=== PATIENT | male | born 1945 | race Two or more races ===

== ENCOUNTER → 2023-07-15 13:36 | Outpatient (REF) | payer MEDICARE, SELFPAY | LOC: MRI 3T 13:36 | PROVIDERS: ATTENDING PHYSICIAN Nurse Practitioner | DX: G43.719 Chronic migraine without aura, intractable, without status migrainosus (principal) | CPT/HCPCS: 70553; A9575 ==

== ENCOUNTER → 2023-08-13 11:25 | Outpatient (REF) | payer MEDICARE, SELFPAY ==
[2023-08-13 13:09] LABS: Erythrocyte Sed Rate 26 mm/hour (0-20)
== END ==
LOC: REG 11:25
PROVIDERS: ATTENDING PHYSICIAN Ophthalmology; FAMILY PHYSICIAN Physical Medicine & Rehabilitation
DX: H57.13 Ocular pain, bilateral (principal)
CPT/HCPCS: 36415; 85652; 86140

== ENCOUNTER → 2023-08-16 06:09 | Day surgery (SDC) | payer MEDICARE, SELFPAY ==
[2023-08-16 06:20] VITALS: BP 121/57; BMI 30.9
[2023-08-16] MEDS: BACTROBAN NASAL 1 GRAM NASAL (06:59)
[2023-08-16] MEDS: PERIDEX 0.12% ORAL RINSE 15 ML PO (06:59)
[2023-08-16] MEDS: NSS 500 IV (07:00)
[2023-08-16 07:02] LABS: Hematocrit 32.2 % (39.0-52.0); Hemoglobin 11.1 g/dL (13.0-18.0); Mean Corp Hgb Conc. 34.5 g/dL (33.0-37.0); Mean Corpuscular Hgb 29.4 pg (27.0-31.0); Mean Corpuscular Volume 85.4 fL (80.0-94.0); Mean Platelet Volume 10.5 fL (7.4-10.4); Platelet Count 293 10^3/uL (130-400); Red Blood Cell Count 3.77 10^6/uL (4.70-6.10); Red Cell Dist. Width 13.2 % (11.5-14.5); White Blood Cell Count 10.3 10^3/uL (4.8-10.8)
[2023-08-16 07:17] LABS: APTT 26.4 Sec (23.4-35.0); INR 1.16; PT 14.9 Sec (11.4-14.6)
--- NOTE | 2023-08-16 07:26 | W.SUR.PREOP ---
Pre-Operative Surgical Note
-
I have examined this patient prior to the performance of the scheduled procedure.
The patient's condition is unchanged from the time of the current History and
Physical and the patient is able to undergo the scheduled procedure.
[2023-08-16 07:42] LABS: Blood Urea Nitrogen 22 mg/dl (9-20); Carbon Dioxide 24 mmol/L (22-30); Chloride 104 mmol/L (98-107); Estimated Creatinine Clearance 57 ml/min; Glucose 92 mg/dl (70-99); Sodium 135 mmol/L (135-145); eGFR 55.88
--- NOTE | 2023-08-16 08:31 | W.SUR.POST ---
Surgical Immediate Post Op
Note
Pre Op Diagnosis: Giant cell arteritis
Post Op Diagnosis: Same
Procedure Performed: Bilateral temporal artery biopsy
Primary Surgeon: Trip
Assist: Portia AMADOR
Anesthesia: Local and sedation
Estimated Blood Loss: 2 cc
Fluids: See anesthesia flowsheet
Drains/Shunts: None
Specimens/Cultures: Bilateral temporal arteries
Doppler/Duplex/Angio (Y/N): Y
Complications: None
Operative Findings: Successful biopsies
--- NOTE | 2023-08-16 08:33 | OR.RPT ---
Operative Report
Operative Report
PROCEDURE DATE: 08/16/2023
Preoperative diagnosis: Temporal arteritis
Postoperative diagnosis: Same
Procedure: Bilateral temporal artery biopsy.
Surgeon: Trip
Highway Traffic Control Technician: Portia, required for all aspects of procedure including traction/countertraction and assistance with closure.
Complications: None
Anesthesia: Local, sedation
Indications for procedure:
Concern for giant cell/temporal arteritis. Referred for temporal artery biopsy. Risk/benefits/alternatives also discussed. Patient understood all wish to proceed.
Description of procedure:
Patient was identified brought to the operating room placed on the table in supine position. After the adequate administration of anesthesia and perioperative antibiotics he was prepped and draped in the standard surgical fashion. A standard
preoperative timeout was undertaken and everybody was in agreement the plan. A longitudinal incision was made in the scalp a few centimeters anterior and superior to the superiormost aspect of the pinna of the right ear just under the hairline
(overlying the palpable pulsation of the artery) after infiltration of the skin and subcutaneous tissue with 1% lidocaine. This was carried down through the subcutaneous layer and the fascia layer with electrocautery. The superficial temporal
artery was identified. It was mobilized using sharp dissection. It was then ligated proximally and distally as well as a branch ligated all with silk ties and a clip. I then transected the artery. This was then sent for specimen.
A similar incision was made in the left scalp but this one was immediately anterior and superior to the superiormost aspect of the pinna of the left ear (overlying the palpable pulsation of the artery) after infiltration of the skin and subcutaneous
tissue with 1% lidocaine. Similarly this was carried down through the subcutaneous tissue and fascial layer with the electrocautery. The superficial temporal artery was identified and was mobilized using sharp dissection. It was then ligated
proximally and distally as well as a branch ligated all with silk ties and a clip. I then transected the artery. This was then sent for specimen.
Note on both sides, the artery was significantly coiled/tortuous with some thickening.
Both incision sites were then irrigated. Hemostasis was achieved and confirmed. We then closed in layers using 3-0 Vicryl deep dermal layer followed by 4-0 Monocryl subcuticular running layer (this was completed bilaterally). Dermabond was then
applied bilaterally. Patient tolerated procedure well.
[2023-08-16 08:34] VITALS: BP 110/62; BP 121/57
[2023-08-16 08:36] VITALS: BP 110/71
[2023-08-16 08:45] VITALS: BP 114/65
[2023-08-16 09:00] VITALS: BP 119/83
[2023-08-16 09:11] VITALS: BP 113/72
--- NOTE | 2023-08-16 09:27 | PTCARENOTE ---
Discharge instructions reviewed with patient at bedside. Patient stated understanding. no S/s of infection at IV site or incision sites, VSS. Patient's IV removal tolerated well. Patient discharged via wheelchair to [facility].
== END | disposition home or self-care (01) ==
LOC: CATH 06:09
PROVIDERS: ATTENDING PHYSICIAN Surgery Vascular Surgery
DX: R51.9 Headache, unspecified (principal); M31.6 Other giant cell arteritis; I44.0 Atrioventricular block, first degree
CPT/HCPCS: 37609; 88305; 80048; 85027; 85610; 85730; 86850; 86900; 86901; 88313; 93005

== ENCOUNTER → 2023-10-02 08:30 | Outpatient (REF) | payer MEDICARE, SELFPAY | LOC: RAD 08:30 | PROVIDERS: ATTENDING PHYSICIAN Internal Medicine | DX: R13.19 Other dysphagia (principal) | CPT/HCPCS: 74246 ==

== ENCOUNTER 2023-10-03 16:00 | Inpatient (IN) | payer MEDICARE, SELFPAY ==
[2023-10-03] VITALS (20 sets, daily range): BP systolic 105–157; BP diastolic 53–133; PULSE 86–102; BMI 33.8; BMI 30.2
[2023-10-03 12:27] LABS: Hematocrit 19.9 % (39.0-52.0); Hemoglobin 6.6 g/dL (13.0-18.0); Mean Corp Hgb Conc. 33.2 g/dL (33.0-37.0); Mean Corpuscular Hgb 26.2 pg (27.0-31.0); Mean Platelet Volume 10.3 fL (7.4-10.4); Platelet Count 334 10^3/uL (130-400); Red Blood Cell Count 2.52 10^6/uL (4.70-6.10); Red Cell Dist. Width 15.7 % (11.5-14.5); White Blood Cell Count 23.6 10^3/uL (4.8-10.8)
[2023-10-03 12:33] LABS: ALT (SGPT) 34 U/L (0-50); AST (SGOT) 61 U/L (17-59); Albumin 3.6 g/dl (3.5-5.0); Alkaline Phosphatase 107 U/L (38-126); Blood Urea Nitrogen 58 mg/dl (9-20); Calcium 9.2 mg/dl (8.4-10.2); Carbon Dioxide 19 mmol/L (22-30); Chloride 102 mmol/L (98-107); Estimated Creatinine Clearance 52 ml/min; Glucose 146 mg/dl (70-99); Potassium 5.3 mmol/L (3.5-5.1); Sodium 137 mmol/L (135-145); Total Bilirubin 0.5 mg/dl (0.2-1.3); Total Protein 5.8 g/dl (6.3-8.2); eGFR 47.06
[2023-10-03 12:47] LABS: % Basophils 0.2 % (0-2); % Immature Granulocytes 1.6 % (0-0.5); % Lymphocytes 4.8 % (20.5-51.1); % Monocytes 4.9 % (1.7-9.3); % Neutrophils 88.5 % (42.2-75.2); Absolute Basophils 0.1 10^3/uL (0-0.2); Absolute Immature Granulocytes 0.4 10^3/uL (0-0.05); Absolute Lymphocytes 1.1 10^3/uL (1.2-3.4); Absolute Monocytes 1.2 10^3/uL (0.1-0.6); Absolute Neutrophils 20.8 10^3/uL (1.4-6.5); Nucleated Red Blood Cells % 0.6 % (-)
--- NOTE | 2023-10-03 13:07 | ED.GENMED ---
History of Present Illness
General
Chief Complaint: Weakness
Time Seen by Provider: 10/03/23 12:08
History of Present Illness
History of Present Illness:
77-year-old male who presents to the emergency department for evaluation of intractable hiccups associated with shortness of breath and general malaise. He had an outpatient upper GI barium swallow yesterday that was concerning for a distal
esophageal mass. He was planned for endoscopy today however when he arrived to the endoscopy suite was noted to be profoundly fatigued and pale and thus was deferred to the emergency department for further workup. Endorses a history of chronic
GERD symptoms for quite some time, his last endoscopy was approximately 3 years ago.
Review of Systems
Review of Systems
Allergies reviewed?: Yes
All Other Systems: ROS reviewed and negative except as documented in HPI and ROS
Phy Exam
Physical Exam
Physical Exam:
GEN: Pale, chronically ill-appearing, no distress
Eyes: PERRLA, EOMs intact, no scleral icterus
HENT: NCAT, oral mucosa moist
Lungs: CTAB, no wheezes, rales, rhonchi, normal chest wall excursion
Cardiac: RRR, no M/R/G, no peripheral edema. Radial pulses 2+ bilat
Abdomen: S, NT, ND, NABS, no masses or hepatosplenomegaly
Neuro: AO x 3
MSK: No gross deformity or ecchymosis. No edema. No digital clubbing
Skin: No rashes, petechiae. Significant pallor
Psych: Calm, cooperative, proper hygiene
Course
Orders/Labs/Results
Orders:
Orders
10/03/23 Breakfast
Clear Liquid
At Your Request: Full Participation
Does patient need a safe tray?: No
Comment: potassium restriction diet
10/03/23 11:57
EKG [Electrocardiogram (*1)] Urgent
Reason for Study: Fatigue / Weakness
EKG- Treatment ONCE
10/03/23 12:04
CBC/With Diff [Complete Blood Count/With Diff] Urgent
CMP [Comprehensive Metabolic Panel] Urgent
10/03/23 12:26
CT Chest/abd/pel W Iv Cont Urgent
Comment: drank contrast for planned outpatient study
Reason For Exam: weight loss, dysphagia
ChlorproMAZINE [Thorazine] 12.5 mg IM NOW STA
10/03/23 12:58
Type+Screen Urgent
10/03/23 13:12
Blood Bank Products [* Blood Bank Products] Urgent
Blood Bank Products: *Packed RBC Leuko(PRBC's)
Quantity: 2
Transfuse Today: Yes
Reason: Anemia
Pantoprazole [Protonix IV] 80 mg IV NOW STA
10/03/23 13:15
Pantoprazole 80 mg/100 ml Nss [Protonix] 80 mg in 100 ml IV Q10H
10/03/23 15:03
Admit/Transfer Patient As Directed
Co-Sign Provider:
Level of Care: Inpatient admission
Assign to:: Medical/Surgical
Physician / Group: sheu
Diagnosis: anemia
Reason for Hospitalization: anemia
Expected length of stay greater than two midnights?: Yes
ELOS- Estimated Length of Stay in days: 3
I certify the patient meets the requirements for IP care: Yes
10/03/23 15:04
PRN Pain Medication Management As Directed
May give lesser potent ordered pain med per pt: Yes
preference::
Protocol:: Medication orders for pain may be administered in a
manner that supports deferring to patient preference
when the pt is:
- Requesting an ordered lesser potent pain medication.
Least to most potent pain medications are defined
as: acetaminophen < NSAID < tramadol < opioids
(morphine, oxycodone, hydromorphone).
- Requesting a lesser dose of the same medication IF
ORDERED.
- Requesting a less intrusive route of administration
if both routes are prescribed by the provider (PO <
IV).
10/03/23 15:05
Code Status As Directed
Resuscitation Status: Do not resuscitate
Reached after discussion with pt or family/Healthcare POA: Yes
DNR Bracelet Application ONCE
10/03/23 15:56
Urinalysis Reflex To Culture Routine
10/03/23 17:25
Chlorpromazine [Thorazine] 25 mg PO Q6HPRN PRN
10/03/23 17:25
GASTROINTESTINAL CONSULT Routine
Consulting Provider: Mynor Corbett
Was physician already notified: Yes
Activity As Directed
Activity Level: As Tolerated
INT (Intravenous Needle Therapy) As Directed
Comment: Place 2 IV catheters of the largest bore possible until stable
Orthostatic Vital Signs As Directed
Orthostatic VS Frequency: Now
Comment: then every four hours for twenty-four hours
Venous Foot Pumps As Directed
Location: Bilateral feet
Vital Signs As Directed
Frequency: Per unit guidelines
DX Deep Vein Thrombosis Video Routine
10/03/23 21:00
H&H Q8H
10/03/23 22:00
Lorazepam [Ativan] 4 mg PO HS
Zolpidem Tartrate [Ambien] 10 mg PO HS
10/04/23 Breakfast
NPO
Allow oral meds: Yes
Allow clear liquids: No
NPO for procedure after (time): 10/04/2023 0000
Basic Metabolic Panel IN AM
Complete Blood Count/No Diff IN AM
Physical Therapy Consult [Pt Eval And Treat] IN AM
Activity Level: As Tolerated
10/05/23 06:00
Basic Metabolic Panel IN AM
Complete Blood Count/No Diff IN AM
10/06/23 06:00
Basic Metabolic Panel IN AM
Complete Blood Count/No Diff IN AM
10/07/23 06:00
Basic Metabolic Panel IN AM
Complete Blood Count/No Diff IN AM
10/08/23 06:00
Basic Metabolic Panel IN AM
Complete Blood Count/No Diff IN AM
Abnormal Lab Results
10/03/23 10/03/23
12:04 12:58
WBC 23.6 H 10^3/uL
(4.8-10.8)
RBC 2.52 L 10^6/uL
(4.70-6.10)
Hgb 6.6 L* g/dL
(13.0-18.0)
Hct 19.9 L* %
(39.0-52.0)
MCV 79.0 L fL
(80.0-94.0)
MCH 26.2 L pg
(27.0-31.0)
RDW 15.7 H %
(11.5-14.5)
Abs Immat Gran (auto) 0.4 H 10^3/uL
(0-0.05)
Absolute Neuts (auto) 20.8 H 10^3/uL
(1.4-6.5)
Absolute Lymphs (auto) 1.1 L 10^3/uL
(1.2-3.4)
Absolute Monos (auto) 1.2 H 10^3/uL
(0.1-0.6)
Immature Gran % 1.6 H %
(0-0.5)
Neutrophils % 88.5 H %
(42.2-75.2)
Lymphocytes % 4.8 L %
(20.5-51.1)
Potassium 5.3 H mmol/L
(3.5-5.1)
Carbon Dioxide 19 L mmol/L
(22-30)
BUN 58 H mg/dl
(9-20)
Creatinine 1.5 H mg/dL
(0.7-1.3)
Glucose 146 H mg/dl
(70-99)
AST 61 H U/L
(17-59)
Total Protein 5.8 L g/dl
(6.3-8.2)
Crossmatch IS Only See Detail
10/03/23 12:04
10/03/23 12:04
Vital Signs
Initial and Last Documented VS:
Initial Vital Signs
Temp Pulse Resp BP Pulse Ox
98.6 F 87 20 115/68 93
10/03/23 11:40 10/03/23 11:40 10/03/23 11:40 10/03/23 11:40 10/03/23 11:40
Last Documented Vital Signs
Temp Pulse Resp BP Pulse Ox
98.1 F 89 16 107/53 95
10/03/23 19:50 10/03/23 19:50 10/03/23 19:50 10/03/23 19:50 10/03/23 19:53
MDM/Problems Addressed
MDM/Problems Addressed:
Unfortunately patient is identified to have a suspicious mass in the distal esophagus which is likely the cause of his symptoms with an associated pleural effusion and multiple hepatic mets. Due to his severe symptomatic anemia he will be admitted
for blood transfusion, inpatient endoscopy, and further diagnostic workup.
*Critical Care Note
Total Time (30-74mins, 75-104mins- exclusive of procedures): 40 minutes
comment:
Critical care time: 40 minutes
Critical care time was exclusive of: Separately billable procedures, treating other patients, and teaching time
Critical care was necessary to treat or prevent imminent or life-threatening deterioration of the following conditions: Symptomatic anemia
Critical care time spent personally by me on the following activities:
[x] Review of old charts
[x] Obtaining history from patient or surrogate
[x] Ordering and review of the laboratory studies
[x] Ordering and review of radiographic studies
[x] Ordering and performing treatments and interventions
[x] Patient patient's response to treatment
[x] Development of treatment plan with patient or surrogate
ED Attending Note
-
Portions of this chart may have been created with voice recognition software.� Occasional wrong word or��sound alike� substitutions may have occurred due to the inherent limitations of voice recognition software.
Discharge Plan
Departure
Patient Disposition: Admit
Date of Disposition: 10/03/23
Time of Disposition: 14:21
Admit to: Med/Surg
Presentation/result/management discussed w/ accepting MD/DO: Hospitalist
Discharge Problem:
Esophageal mass, Symptomatic anemia
Interventions
Interventions:
*Risk Screen - Suicide Last Done: 10/03/23 12:21
*General Assessment Last Done: 10/03/23 11:40
*Neglect/Abuse Screening Last Done: 10/03/23 12:21
ED- Fall Risk Assessment Last Done: 10/03/23 12:21
*ED COVID-19 Vaccine History Last Done: 10/03/23 11:40
*Nursing Disposition Last Done: 10/03/23 17:10
ED- Cardiac Assessment Last Done: 10/03/23 12:21
ED- Neurological Assessment Last Done: 10/03/23 12:21
ED- Pulmonary Assessment Last Done: 10/03/23 12:21
Discharge Date and Time
Discharge Date/Time: 10/03/23 17:11
[2023-10-03] MEDS: THORAZINE 12.5 MG IM (13:26)
[2023-10-03] MEDS: PROTONIX IV 80 MG IV (13:29)
[2023-10-03] MEDS: PROTONIX 100 IV ×2 (13:32→21:38)
--- NOTE | 2023-10-03 14:33 | HPS.HSE ---
Addendum entered and electronically signed by Rosalio Alexandra MD 10/03/23 20:02:
I saw and examined the patient.
The CHEESEMAKER or PA's note was reviewed and I agree with the note.
Comment:
77M migraines, prostate cancer, hypertension, anxiety p/w difficulty swallowing for past few weeks. Outpatient upper GI barium swallow concerning for distal esophageal mass. Planned for endoscopy, however on evaluation in endoscopy suite pt was
noted to be profoundly fatigued and pale- subsequently referred to ED where he was noted to have severe anemia Hgb 6.6. Patient was transfused 1PRBC and admitted for further evaluation/treatment.
Physical Exam
General: Well Developed, Well Nourished and No Apparent Distress
HEENT: NormoCephalic, Moist mucous membranes and Atraumatic
Respiratory: Clear
Cardiac: S1/S2 and Regular Rhythm; No Murmur or Rub
GI: Soft, Non Tender, Non Distended and Normal Bowel Sounds; No Organomegaly
Musculoskeletal: No Clubbing, No Cyanosis and No Edema
Skin: No Rash
Neuro: AO x 3 and Nonfocal/grossly intact
Psych: Calm
#Severe anemia due to suspected distal esophageal mass with hepatic mets
#Leukocytosis suspect reactive
# mild Hyperkalemia/metabolic acidosis/acute kidney injury likely dehydaration
# History of prostate cancer status post cystectomy
# Hypertension
# History of anxiety
follow up post-transfusion Hgb
monitor H&H
trend wbc
IVF gentle hydration
monitor renal function
clear liquid diet for now
npo after midnight for EGD
GI eval
Original Note:
Family Physician
-
Family Physician: PHYSICIAN PRIVATE
Chief Complaint
-
difficulty swallowing
hiccups
History of Present Illness
77-year-old male migraines, prostate cancer, hypertension, anxiety presented to us with difficulty swallowing for past few weeks. He had an outpatient upper GI barium swallow yesterday that was concerning for a distal esophageal mass. He was
planned for endoscopy today however when he arrived to the endoscopy suite was noted to be profoundly fatigued and pale and thus was deferred to the emergency department for further workup. Since the barium swallow, he has hiccups. Denied nausea
vomiting diarrhea. Patient denied headache, dizziness, syncopal episode. Patient denied chest pain or short of breath. Patient denied dysuria hematuria.
Upon arrival he was noted to have low hemoglobin. Giving 2 units of blood. Admitting for further management
Medical History
Past Medical History
Past Medical History: Reports Other
Additional Past Medical History:
Migraine
Past Surgical History: Reports Other
Additional Past Surgical History:
Left wrist surgery
Appendectomy
Lipoma of neck removal
Quadricep tendon repair
Prostatectomy
Social History
Tobacco: Non-smoker
Alcohol: None
Drug: None
Personal: Single
Living: Alone
Family History
Family History: Not pertinent
Allergies / Home Medications
Allergies reflects when Allergies were last updated in [facility].
Home Medications with original date entered in [facility]
Allergy/Medication List:
Allergies
Allergy/AdvReac Type Severity Reaction Status Date / Time
Penicillins Allergy Anaphylaxis Verified 10/03/23 11:48
Home Medications
anastrozole 1 mg tablet 1 mg PO TU 08/16/23
clomiphene citrate 50 mg tablet 25 mg PO DAILY 08/16/23
lorazepam 1 mg tablet 4 mg PO 08/16/23
quetiapine 50 mg tablet 100 mg PO HS 08/16/23
tadalafil 5 mg tablet 5 mg PO DAILY 08/16/23
zolpidem 10 mg tablet 10 mg PO HS 08/16/23
bismuth subsalicylate 262 mg/15 mL oral suspension (Pepto-Bismol) 524 mg PO DAILYPRN PRN GI issues 10/03/23
irbesartan 150 mg tablet 150 mg PO DAILY 10/03/23
naproxen sodium 220 mg tablet (Aleve) 880 mg PO DAILYPRN PRN headache 10/03/23
sumatriptan succinate 100 mg tablet 50 - 100 mg PO DAILYPRN PRN migraine 10/03/23
testosterone 3 pump topical DAILY left arm or stomach 10/03/23
Review of Systems
-
Constitutional: Reports No Symptoms
EENT: Reports No Symptoms
Respiratory: Reports Trouble Breathing
Cardiac: Reports No Symptoms
Abdomen/GI: Reports Other (Hiccups)
: Reports No Symptoms
Musculoskeletal: Reports No Symptoms
Skin: Reports No Symptoms
Neurological: Reports No Symptoms
Endocrine: Reports No Symptoms
Hematologic/Lymphatic: Reports No Symptoms
Psych: Reports No Symptoms
Physical Exam
Vital Signs
Vital Signs
Temp Pulse Resp BP Pulse Ox
98.6 F 85 17 115/68 93
10/03/23 11:40 10/03/23 12:15 10/03/23 12:15 10/03/23 11:40 10/03/23 11:40
Physical Exam
General: Well Developed, Well Nourished and No Apparent Distress
HEENT: NormoCephalic, Moist mucous membranes and Atraumatic
Respiratory: Clear
Cardiac: S1/S2 and Regular Rhythm; No Murmur or Rub
GI: Soft, Non Tender, Non Distended and Normal Bowel Sounds; No Organomegaly
Rectal: Deferred by Provider
Musculoskeletal: No Clubbing, No Cyanosis and No Edema
Skin: No Rash
Neuro: AO x 3 and Nonfocal/grossly intact
Psych: Calm
Laboratory Results
-
10/03/23 12:04
10/03/23 12:04
Laboratory Results
Total Bilirubin 0.5 mg/dl (0.2-1.3) 10/03/23 12:04
AST 61 U/L (17-59) H 10/03/23 12:04
ALT 34 U/L (0-50) 10/03/23 12:04
Alkaline Phosphatase 107 U/L (38-126) 10/03/23 12:04
Data Reviewed
-
CT Scan: Image Personally Visualized and interpreted
Lab Data: Labs Reviewed by me
Impression/Plan
-
# Severe anemia due to suspected distal esophageal mass with hepatic mets
#acute hypoxic likely from anemia
-IV PPI continued
-Hemoglobin 6.6
-CT of chest, abdomen, pelvis with impression of nodular thickening of the distal esophageal wall corresponding to the 7 cm in length nodular area of thickening seen on yesterday's upper GI examination and high level suspicion for esophageal
carcinoma . Endoscopy is recommended.There are greater than 15 low density hepatic masses measuring up to 2 cm consistent with hepatic metastasis. Small-moderate right pleural effusion. Cholelithiasis
-Transfusing with units of blood
-Thorazine continued prn
-Keep patient n.p.o after MN, clear liquid diet until then
-continue supplemental oxygen to keep sat >92
-wean as tolerated
-GI consulted
-Oncology consulted
# Leukocytosis likely reactive
-WBC 23.6
-Obtain urinalysis
-Continue to monitor
# Hypokalemia/metabolic acidosis/acute kidney injury likely dehydaratio
-K5.3, CO2 19, BUN 58, creatinine 1.5
-Monitor BMP in a.m.
-gentle hydration
-BMp in am
# History of prostate cancer status post cystectomy
-On anastrozole
# Hypertension
-Blood pressure stable in ER
-Hold irbesartan due to JULIA
-hydralazine prn
# History of anxiety
-lorazepam continued
-held Seroquel due to concern for prolonged qt with Thorazine.
# History of migraines
-On sumatriptan as needed
# DVT prophylaxis
-SCD
# CODE STATUS
-DNR
--- NOTE | 2023-10-03 16:03 | CON.GI ---
Addendum entered and electronically signed by Mynor Corbett MD 10/03/23 18:13:
I saw and examined the patient.
The FACTORY EXPERT or PA's note was reviewed and I agree with the note.
Comment: 77yo male scheduled to have EGD today for evaluation of dysphagia but sent to ER due to looking poorly, pale. He was having dysphagia over last several months and lost 20 pounds. UGI yesterday showed irregularity of distal esophagus
concerning for a mural mass. He had EGD in 2020 at [facility] that showed esophagitis, bx negative for Barretts. He has had intermittent reflux, but over last few months reflux subsided and now having dysphagia. In ER Hgb 6.6. CT chest shows 7cm
length nodular thickening of distal esophagus and >15 liver masses up to 2cm c/w mets.
REC:
Transfuse PRBC
EGD tomorrow for bx to evaluate for esophageal CA
Consult Oncology if EGD positive
Addendum entered and electronically signed by Geetha King NP 10/03/23 16:44:
Also taking NSAIDs intermittently, but not on a daily basis. Consider peptic ulcer disease/esophageal ulcer in differential.
Original Note:
Consultation
-
Date/Time Consultation Requested: 10/03/23
Date/Time Consultation Performed: 10/03/23 @ 16:30
Requesting Provider: MARJORIE Sharif
Performing Provider: MARJORIE Garsia
Reason for Consultation: esophageal mass, dysphagia
Medical History
Chief Complaint / HPI
Chief Complaint: sent from ED
History of Present Illness:
The patient is a pleasant 77-year-old male with a past medical history significant for migraines, hypertension, anxiety, prior appendectomy, GERD, history of prostatectomy, who presented to the emergency room after being referred from the endoscopy
unit for evaluation. Upon review of outpatient records, the patient had seen Dr. Musa in the office on 09/24 due to complaints of dysphagia of solid foods and large pills. He has been having the symptoms for the last few months associated with
weight loss unintentionally of about 20 pounds. Historically he was seen at [facility] for similar symptoms in 2020 where he had an EGD which showed a large hiatal hernia, Schatzki ring with dilation, and LA grade C esophagitis. I do not have
pathology to review but the patient reports that the biopsies were negative for Gutierrez's. He reportedly had been on and off antiacid medication, taking Zantac remotely and Tums here and there. He underwent an outpatient esophagram which showed
concern for possible distal esophageal mass and was referred to have an endoscopy urgently today. During his evaluation in the endoscopy suite he was found to be pale and reported extreme fatigue, therefore was sent to the emergency room for
further evaluation. He reports that he has been progressively fatigued, thought to be related to his poor eating. He notes that due to his difficulty swallowing he has been eating less and losing weight as mentioned above. He otherwise denies any
nausea, vomiting, fevers, chills, abdominal pain, odynophagia, chest pain, or shortness of breath. He also admits to hiccups that started yesterday. He does admit to drinking 1 glass of wine a few times a week. He denies any heavy alcohol use or
history of smoking. He does also note increased headaches recently and has been taking naproxen as needed. He denies any overt signs of bleeding such as melena or hematochezia. He does not use any blood thinners. He denies any family history of
colon cancer esophageal cancer or stomach cancer. Routine labs on admission showed WBC 23.6, hemoglobin 6.6, MCV 79, platelets 334,000, INR 1.16, potassium 5.3, sodium 137, BUN 58, creatinine 1.5, AST 61, ALT 34, bilirubin 0.5, alk phos 107. He
underwent CT imaging of the chest, abdomen, and pelvis showing nodular thickening of the distal esophagus corresponding to 7 cm in length nodular area concerning for esophageal carcinoma along with 15 low-density hepatic masses measuring up to 2 cm
consistent with hepatic metastasis. He is being admitted for further evaluation by GI. Blood transfusion was initiated in the ER.
Past Medical History
Past Medical History: GERD, HTN and Other (Migraines, anxiety)
Past Surgical History: Appendectomy and Other (Prostatectomy)
Social History
Tobacco: Non-Smoker
Alcohol: Occasional
Drug: None
Personal: Partner
Living: With Family
Family History
Family History: Reviewed & Not Pertinent
Allergies / Home Medications
Allergy/AdvReac Type Severity Reaction Status Date / Time
Penicillins Allergy Anaphylaxis Verified 10/03/23 11:48
�Medication �Instructions �Recorded
anastrozole 1 mg tablet 1 mg PO TU 08/16/23
clomiphene citrate 50 mg tablet 25 mg PO DAILY 08/16/23
lorazepam 1 mg tablet 4 mg PO HS 08/16/23
quetiapine 50 mg tablet 100 mg PO HS 08/16/23
tadalafil 5 mg tablet 5 mg PO DAILY 08/16/23
zolpidem 10 mg tablet 10 mg PO HS 08/16/23
bismuth subsalicylate 262 mg/15 mL 524 mg PO DAILYPRN PRN GI issues 10/03/23
oral suspension (Pepto-Bismol)
irbesartan 150 mg tablet 150 mg PO DAILY 10/03/23
naproxen sodium 220 mg tablet 880 mg PO DAILYPRN PRN headache 10/03/23
(Aleve)
sumatriptan succinate 100 mg tablet 50 - 100 mg PO DAILYPRN PRN 10/03/23
migraine
testosterone 3 pump topical DAILY left arm or 10/03/23
stomach
Review of Systems
-
History Source: Patient and Family
Constitutional: Reports Weight Loss and Fatigue
EENT: Reports No Symptoms
Respiratory: Reports No Symptoms
Cardiac: Reports No Symptoms
Abdomen/GI: Reports Other (Dysphagia, hiccups)
: Reports No Symptoms
Musculoskeletal: Reports No Symptoms
Skin: Reports No Symptoms
Neurological: Reports No Symptoms
Endocrine: Reports No Symptoms
Vital Signs
Temp Pulse Resp BP Pulse Ox
99.2 F 80 18 111/91 94
10/03/23 15:38 10/03/23 15:38 10/03/23 15:38 10/03/23 15:38 10/03/23 15:21
Physical Exam
Exam
General: No Apparent Distress and Other (Elderly, pale appearing male)
HEENT: Normocephalic, Anicteric and Atraumatic
Respiratory: Clear
Cardiac: S1/S2 and Regular Rhythm
GI: Soft, Non Tender and Normal Bowel Sounds
Musculoskeletal: No Edema
Skin: Warm, Dry and Other (Pale appearing)
Neuro: Awake, Alert and Oriented
Psych: Calm
Results
WBC 23.6 10^3/uL (4.8-10.8) H 10/03/23 12:04
Hgb 6.6 g/dL (13.0-18.0) L* 10/03/23 12:04
Hct 19.9 % (39.0-52.0) L* 10/03/23 12:04
MCV 79.0 fL (80.0-94.0) L 10/03/23 12:04
Plt Count 334 10^3/uL (130-400) 10/03/23 12:04
Absolute Neuts (auto) 20.8 10^3/uL (1.4-6.5) H 10/03/23 12:04
Sodium 137 mmol/L (135-145) 10/03/23 12:04
Potassium 5.3 mmol/L (3.5-5.1) H 10/03/23 12:04
Chloride 102 mmol/L (98-107) 10/03/23 12:04
Carbon Dioxide 19 mmol/L (22-30) L 10/03/23 12:04
BUN 58 mg/dl (9-20) H 10/03/23 12:04
Creatinine 1.5 mg/dL (0.7-1.3) H 10/03/23 12:04
Calcium 9.2 mg/dl (8.4-10.2) 10/03/23 12:04
Total Bilirubin 0.5 mg/dl (0.2-1.3) 10/03/23 12:04
AST 61 U/L (17-59) H 10/03/23 12:04
ALT 34 U/L (0-50) 10/03/23 12:04
Alkaline Phosphatase 107 U/L (38-126) 10/03/23 12:04
Diagnostic Image Results:
10/03/23 CT C/A/P:IMPRESSION:
1).There is nodular thickening of the distal esophageal wall corresponding to the 7 cm in length nodular area of thickening seen on yesterday's upper GI examination and high level suspicion for esophageal carcinoma . Endoscopy is recommended.
2).There are greater than 15 low density hepatic masses measuring up to 2 cm consistent with hepatic metastasis
3). Small-moderate right pleural effusion.
4). Cholelithiasis
10/02/23 UGI: IMPRESSION: Irregularity of the distal esophagus as described above concerning for a mural mass. The patient is scheduled for endoscopy tomorrow. Probable small nonsliding hiatal hernia. Intraluminal mass involving the entire distal
third of the esophagus cannot be excluded. See above. Severe gastroesophageal reflux disease. Findings suggesting persistent moderate cricopharyngeal muscle spasm.
Prior GI Procedures:
EGD: 2020 at [facility]: Hiatal hernia, LA grade C esophagitis, Schatzki ring with dilation, per patient pathology was negative for Gutierrez's
Colonoscopy: not on file
Assessment / Plan
-
The patient is a pleasant 77-year-old male with a past medical history significant for migraines, hypertension, anxiety, prior appendectomy, GERD, history of prostatectomy, who presented to the emergency room after being referred from the endoscopy
unit for evaluation. He has reportedly been having dysphagia for the past several weeks to months with weight loss of 20 pounds. Outpatient evaluation concerning for esophageal mass seen on esophagram. He was post undergo endoscopy today but was
found to be pale and appearing unwell therefore sent to the emergency room found to have a hemoglobin of 6.6. He was started with a blood transfusion and placed on oxygen. CT of the chest, abdomen, and pelvis showing signs of metastatic disease of
the esophagus and liver.
Problem list:
-Dysphagia
-Hiccups
-CT findings showing esophageal mass with liver metastasis, concerning for esophageal malignancy
-Severe microcytic anemia
-Fatigue
-Weight loss
-History of LA grade C esophagitis
-Chronic intermittent GERD
-JULIA
Other prior medical history:
-Intermittent migraines
-Hypertension
-Anxiety
Recommendations:
-Etiology of his symptoms likely secondary severe anemia with to underlying metastatic disease seen on CT scan, suspect primary source to be esophageal with metastasis to the liver based on imaging.
-At this time agree with transfusion to maintain hemoglobin greater than 7
-Will proceed with EGD tomorrow for evaluation of the esophageal findings and biopsy. May require dilation if any stricture or narrowing is seen. He has had dilation of a Schatzki's ring in 2020 at [facility]
-PPI daily
-Eventual oncology evaluation
-Okay for liquid diet, n.p.o. after midnight
-Further management pending above
-
-
Thank you for consultation and allowing me to participate in the patient's care. Please call the process control specialist GI physician during the after hours with any questions or concerns.
[2023-10-03] MEDS: NSS 1000 IV (18:15)
[2023-10-04] VITALS (14 sets, daily range): BP systolic 20–147; BP diastolic 27–84; PULSE 77–90; BMI 30.2
[2023-10-04] MEDS: ATIVAN 4 MG PO ×2 (00:12→23:27)
[2023-10-04] MEDS: AMBIEN 10 MG PO ×2 (00:12→23:27)
[2023-10-04 02:23] LABS: Hematocrit 22.8 % (39.0-52.0); Hemoglobin 7.9 g/dL (13.0-18.0)
--- NOTE | 2023-10-04 07:39 | W.PN.HOSP.TC ---
Today's Communication/Plan
-
blood transfusion goal hgb>7.5
soft bite sized diet
baclofen renally dosed
Assessment / Plan
Assessment / Plan
Physical Exam
General: Well Developed, Well Nourished and No Apparent Distress
HEENT: NormoCephalic, Moist mucous membranes and Atraumatic
Respiratory: Clear
Cardiac: S1/S2 and Regular Rhythm; No Murmur or Rub
GI: Soft, Non Tender, Non Distended and Normal Bowel Sounds; No Organomegaly
Musculoskeletal: No Clubbing, No Cyanosis and No Edema
Skin: No Rash
Neuro: AO x 3 and Nonfocal/grossly intact
Psych: Calm
77M migraines, prostate cancer, hypertension, anxiety p/w difficulty swallowing for past few weeks. Outpatient upper GI barium swallow concerning for distal esophageal mass. Planned for endoscopy, however on evaluation in endoscopy suite pt was
noted to be profoundly fatigued and pale- subsequently referred to ED where he was noted to have severe anemia Hgb 6.6. Patient was transfused 1PRBC and admitted for further evaluation/treatment.
# Severe anemia due to suspected distal esophageal mass with hepatic mets
#acute hypoxic likely from anemia
-IV PPI continued
-Hemoglobin 6.6
-CT of chest, abdomen, pelvis with impression of nodular thickening of the distal esophageal wall corresponding to the 7 cm in length nodular area of thickening seen on yesterday's upper GI examination and high level suspicion for esophageal
carcinoma . Endoscopy is recommended.There are greater than 15 low density hepatic masses measuring up to 2 cm consistent with hepatic metastasis. Small-moderate right pleural effusion. Cholelithiasis
-Transfusing with units of blood
-Thorazine continued prn
-continue supplemental oxygen to keep sat >92
-wean as tolerated
-GI consult appreciated EGD bx today
-Oncology consult appreciated
-speech eval appreciated soft bite sized diet
#hiccups
baclofen started renally dosed
# Leukocytosis likely reactive
-urinalysis not suggestive UTI
-ID eval appreciated abx not indicated at this time
# Hypokalemia/metabolic acidosis/acute kidney injury likely dehydaratio
-K5.3, CO2 19, BUN 58, creatinine 1.5
-Monitor BMP in a.m.
-gentle hydration
-BMp in am
# History of prostate cancer status post cystectomy
-On anastrozole
# Hypertension
-Blood pressure stable in ER
-Hold irbesartan due to JULIA
-hydralazine prn
# History of anxiety
-lorazepam continued
-Seroquel on hold (patient reports he does not need)
# History of migraines
-On sumatriptan as needed
# DVT prophylaxis
-SCD
# CODE STATUS
-DNR
discussed with patient and his
I spent a total of 50 minutes with the patient or on the floor. More than 50% of this time involved counseling and coordination of care.
Anticipated Discharge: 24 - 48 hours
Subjective/Interval History
-
Date of Service: October 04, 2023
no acute distress. Hiccups persist.
Objective Data
-
Labs:
Laboratory Results
10/04/23 10/04/23 10/04/23
01:00 02:04 06:00
WBC Pending
Hgb Cancelled 7.9 L Pending
Hct Cancelled 22.8 L Pending
Plt Count Pending
Sodium Pending
Potassium Pending
Chloride Pending
Carbon Dioxide Pending
BUN Pending
Creatinine Pending
Glucose Pending
Calcium Pending
Vital Signs:
Vital Signs
Temp Pulse Resp BP Pulse Ox
97.6 F 79 14 137/83 92
10/04/23 03:30 10/04/23 03:30 10/04/23 03:30 10/04/23 03:30 10/04/23 03:30
I&O
10/03/23 10/04/23 10/05/23
06:59 06:59 06:59
Intake Total 740 / 740
Balance 740 / 740
--- NOTE | 2023-10-04 10:06 | CM ---
Patient seen bedside, initial assessment completed. Patient resides independently in a two story home, one step to enter, bedroom on second floor. Patient denies DME in the home, currently on O2, does not have home O2. Patient denies VN or SNF
history. Patient reports PCP Jordan Pride, pharmacy [facility] [address], confirms prescription coverage. Patient denies food, housing/utility, transportation insecurities at home. CM will continue to follow for all discharge planning
needs, will watch for PT evaluations.
Plan; home no needs, watch for VN needs.
--- NOTE | 2023-10-04 11:02 | CON.ONC ---
Documented by User: MARJORIE Adair 10/04/23 13:50
Impression
Impression
Nodular thickening of the distal esophageal wall
Esophageal mass
Hepatic masses concerning for metastatic disease
Weight loss
Dysphagia
Anemia
Microcytosis
Leukocytosis
JULIA
Plan
Plan
Follow CBC w/ diff daily
10/02 Hgb 7.9, Hct 22.8
s/p 2units PRBCs
Transfuse PRN to maintain Hgb >7.5
CBC remains pending this AM
Iron panel ordered
Gastroenterology is following
10/03 Plan for EGD this AM for biopsy
Supportive care
Await pathology from EGD. We will follow.
Patient History
History of Present Illness
Kade Murphy is a 77 year old male who was scheduled for outpatient EGD for evaluation of dysphagia, however, he was sent to the ER due to acutely-ill appearance and pallor. He has been experiencing dysphagia over last several months and experienced
a 20 pound weight loss. UGI showed irregularity of distal esophagus concerning for a mural mass. He had EGD in 2020 at [place] that showed esophagitis, bx negative for Barretts. He has had intermittent GERD with progressive swallowing
difficulty. CBC in the ER showed Hgb 6.6. CT chest shows 7cm length nodular thickening of distal esophagus and >15 liver masses up to 2cm c/w mets.
Patient Medication
�Medication �Instructions �Recorded �Confirmed �Last Taken �Type
anastrozole 1 mg tablet 1 mg PO TU Cancer 08/16/23 10/03/23 10/01/23 History
clomiphene citrate 50 mg tablet 25 mg PO DAILY Hormonal Agent 08/16/23 10/03/23 08/15/23 08:00 History
lorazepam 1 mg tablet 4 mg PO HS anxiety 08/16/23 10/03/23 08/15/23 22:00 History
quetiapine 50 mg tablet 100 mg PO HS Mental Health/Anxiety 08/16/23 10/03/23 08/15/23 22:00 History
tadalafil 5 mg tablet 5 mg PO DAILY Urinary Issue 08/16/23 10/03/23 08/15/23 08:00 History
zolpidem 10 mg tablet 10 mg PO HS sleep 08/16/23 10/03/23 08/15/23 21:00 History
bismuth subsalicylate 262 mg/15 mL 524 mg PO DAILYPRN PRN GI issues 10/03/23 10/03/23 1 Week Ago History
oral suspension (Pepto-Bismol) ~09/26/23
irbesartan 150 mg tablet 150 mg PO DAILY Blood Pressure 10/03/23 10/03/23 Unknown History
naproxen sodium 220 mg tablet 880 mg PO DAILYPRN PRN headache 10/03/23 10/03/23 1 Week Ago History
(Aleve) ~09/26/23
sumatriptan succinate 100 mg tablet 50 - 100 mg PO DAILYPRN PRN 10/03/23 10/03/23 Unknown History
migraine
testosterone 3 pump topical DAILY left arm or 10/03/23 10/03/23 Unknown History
stomach
Active Medications
Generic Name Dose Route Start Last Admin
Trade Name Freq PRN Reason Stop Dose Admin
Chlorpromazine HCl 25 mg 10/03/23 17:25
Chlorpromazine 25 Mg Tablet PO 10/31/23 17:24
Q6HPRN PRN
hiccups
Hydralazine HCl 10 mg 10/03/23 17:25
Hydralazine 20 Mg/Ml Vial IV 10/31/23 17:24
Q6HPRN PRN
hypertension
Pantoprazole Sodium 80 mg in 100 mls @ 10 mls/hr 10/03/23 13:15 10/03/23 21:38
Protonix IV 100 mls
Q10H MARYLOU Administration
8 MG/HR
Sodium Chloride 1,000 mls @ 60 mls/hr 10/03/23 17:25 10/03/23 18:15
Nss IV 1,000 mls
.[id number] MARYLOU Administration
Lorazepam 4 mg 10/03/23 22:00 10/04/23 00:12
Lorazepam 2 Mg Tablet PO 10/31/23 21:59 4 mg
HS MARYLOU Administration
Sodium Chloride 0 flush 10/03/23 18:00
Sodium Chloride 0.9% (Flush) Syringe IV 10/31/23 17:59
PER PROTOCOL MARYLOU
Zolpidem Tartrate 10 mg 10/03/23 22:00 10/04/23 00:12
Zolpidem Tartrate 10 Mg Tablet PO 10/31/23 21:59 10 mg
HS MARYLOU Administration
Physical Exam
Labs
Lab Results
WBC 23.6 10^3/uL (4.8-10.8) H 10/03/23 12:04
RBC 2.52 10^6/uL (4.70-6.10) L 10/03/23 12:04
Hgb 7.9 g/dL (13.0-18.0) L 10/04/23 02:04
Hct 22.8 % (39.0-52.0) L 10/04/23 02:04
MCV 79.0 fL (80.0-94.0) L 10/03/23 12:04
MCH 26.2 pg (27.0-31.0) L 10/03/23 12:04
MCHC 33.2 g/dL (33.0-37.0) 10/03/23 12:04
RDW 15.7 % (11.5-14.5) H 10/03/23 12:04
Plt Count 334 10^3/uL (130-400) 10/03/23 12:04
MPV 10.3 fL (7.4-10.4) 10/03/23 12:04
Abs Immat Gran (auto) 0.4 10^3/uL (0-0.05) H 10/03/23 12:04
Absolute Neuts (auto) 20.8 10^3/uL (1.4-6.5) H 10/03/23 12:04
Absolute Lymphs (auto) 1.1 10^3/uL (1.2-3.4) L 10/03/23 12:04
Absolute Monos (auto) 1.2 10^3/uL (0.1-0.6) H 10/03/23 12:04
Absolute Eos (auto) 0.0 10^3/uL (0-0.7) 10/03/23 12:04
Absolute Basos (auto) 0.1 10^3/uL (0-0.2) 10/03/23 12:04
Immature Gran % 1.6 % (0-0.5) H 10/03/23 12:04
Neutrophils % 88.5 % (42.2-75.2) H 10/03/23 12:04
Lymphocytes % 4.8 % (20.5-51.1) L 10/03/23 12:04
Monocytes % 4.9 % (1.7-9.3) 10/03/23 12:04
Eosinophils % 0.0 % (0-6) 10/03/23 12:04
Basophils % 0.2 % (0-2) 10/03/23 12:04
Creatinine 1.5 mg/dL (0.7-1.3) H 10/03/23 12:04
Vital Signs
Vital Signs
Temp Pulse Resp BP Pulse Ox
98.2 F 79 20 127/82 94
10/04/23 09:34 10/04/23 09:34 10/04/23 09:34 10/04/23 09:34 10/04/23 10:12
10/02/23 Upper GI series: Irregularity of the distal esophagus as described above concerning for a mural mass. The patient is scheduled for endoscopy tomorrow. Probable small nonsliding hiatal hernia. Intraluminal mass involving the entire distal
third of the esophagus cannot be excluded. See above.Severe gastroesophageal reflux disease.Findings suggesting persistent moderate cricopharyngeal muscle spasm.
10/03/23 CT c/a/p: There is nodular thickening of the distal esophageal wall corresponding to the 7 cm in length nodular area of thickening seen on yesterday's upper GI examination and high level suspicion for esophageal carcinoma. Endoscopy is
recommended.There are greater than 15 low density hepatic masses measuring up to 2 cm consistent with hepatic metastasis. Small-moderate right pleural effusion. Cholelithiasis.

Documented by User: Dago Calvin MD 10/04/23 12:18
Plan
Plan
Follow CBC w/ diff daily
10/02 Hgb 7.9, Hct 22.8
s/p 2units PRBCs
Transfuse PRN to maintain Hgb >7.5
CBC remains pending this AM
Iron panel ordered
Gastroenterology is following
10/03 Plan for EGD this AM for biopsy
Supportive care
Await pathology from EGD. We will follow.
Hematology/ Oncology Addendum:
Patient seen and evaluluated and agree w/ TOWEL STRETCHER note and plan as outlined.
-distal esophageal mass - s/p EGD w/ biopsies
-pathology pending
-iron studies pending - replete if deficient
Will continue follow with you.
Physical Exam
-
General: Well Developed and No Apparent Distress
HEENT: Negative Jaundice
Cardiology: Normal Sinus Rhythm
Pulmonary: Clear
GI: Soft
Extremities: Negative Edema
[2023-10-04] MEDS: NSS 1000 IV (11:08)
[2023-10-04] MEDS: PROTONIX 100 IV (11:08)
[2023-10-04 11:31] LABS: Hematocrit 25.2 % (39.0-52.0); Hemoglobin 8.5 g/dL (13.0-18.0); Mean Corp Hgb Conc. 33.7 g/dL (33.0-37.0); Mean Corpuscular Hgb 28.2 pg (27.0-31.0); Mean Corpuscular Volume 83.7 fL (80.0-94.0); Red Blood Cell Count 3.01 10^6/uL (4.70-6.10); Red Cell Dist. Width 16.4 % (11.5-14.5); White Blood Cell Count 22.5 10^3/uL (4.8-10.8)
[2023-10-04 11:35] LABS: Blood Urea Nitrogen 52 mg/dl (9-20); Calcium 8.7 mg/dl (8.4-10.2); Carbon Dioxide 22 mmol/L (22-30); Chloride 107 mmol/L (98-107); Estimated Creatinine Clearance 44 ml/min; Glucose 108 mg/dl (70-99); Potassium 4.5 mmol/L (3.5-5.1); Sodium 140 mmol/L (135-145); eGFR 47.06
[2023-10-04 11:54] LABS: Mean Platelet Volume 10.4 fL (7.4-10.4); Platelet Count 239 10^3/uL (130-400)
[2023-10-04 12:00] LABS: Urine Albumin Trace (Neg - Trace); Urine Bilirubin Negative (Negative); Urine Character Clear (Clear); Urine Color Yellow; Urine Glucose Negative (Negative); Urine Ketone Negative (Negative); Urine Leukocyte 1+ (Negative); Urine Nitrite Negative (Negative); Urine Occult Blood Negative (Negative); Urine Urobilinogen Negative (Neg - 1+)
[2023-10-04 12:07] LABS: Urine Red Blood Cell 0-2 /HPF (0-2)
[2023-10-04 12:08] LABS: Urine Bacteria Few (Negative); Urine White Cell 16-20 /HPF (0-5)
[2023-10-04] MEDS: LIORESAL 2.5 MG PO ×3 (12:32→23:28)
--- NOTE | 2023-10-04 14:18 | CON.ID ---
Consultation
-
Date/Time Consultation Requested: 10/04/23 12:06
Date/Time Consultation Performed: 10/04/23 14:18
Requesting Provider: Dr Alexandra
Performing Provider: Dr Newman
Reason for Consultation: persistent leukocytosis esophageal cancer afebrile
Chief Complaint / Past History
Chief Complaint
dysphagia and weight loss
History of Present Illness
Mr Murphy is a 77 mirta old male scheduled for elective EGD for dysphgia referred to the ER for pallor. Reports several months of dysphgia and a 20 lb unintentional weight loss. UGI with irregular distal esophagus - mural mass. Also reflex and
dysphgia. No: headaches, sinus tenderness, sore throat. Occasional, nonproductive cough. No: nausea, vomiting, diarrhea, constipation, dysuria, rashes or joint pains. No tick bites. Has a cat that is healthy.
Since arrival here WBC 23.6, hemoglobin 6.6, platelets 334, INR 1.16, potassium 5.3, sodium 137, BUN 58, creatinine 1.5, AST 61, ALT 34, bilirubin 0.5, alk phos 107. CT imaging of the chest, abdomen, and pelvis with IV contrast with nodular
thickening of the distal esophagus corresponding to 7 cm in length nodular area concerning for esophageal carcinoma along with 15 low-density hepatic masses measuring up to 2 cm consistent with hepatic metastasis. No abdominal lymphadenopathy. No
mediastinal adenopathy, no pulmonary masses. ID is consulted to comment on need for antibiotics.
Past History
Additional Past Medical History:
Migraine
Additional Past Surgical History:
Left wrist surgery
Appendectomy
Lipoma of neck removal
Quadricep tendon repair
Prostatectomy
Allergy History:
Penicillins Allergy (Verified 10/03/23 11:48)
Anaphylaxis
Medications Reviewed: Yes
Social History
Tobacco: Non-Smoker
Alcohol: None
Drug: None
Family History
Family History: Not Pertinent
Review of Systems
Review of Systems
General: Negative Fever or Chills
All systems: All other systems were reviewed and were negative
Vital Signs
Temp Pulse Resp BP Pulse Ox
98.2 F 79 20 127/82 94
10/04/23 09:34 10/04/23 09:34 10/04/23 09:34 10/04/23 09:34 10/04/23 10:12
Physical Exam
Physical Exam
Constitutional: No Acute Distress
Cardiovascular: Regular Rate and S1/S2; Negative Murmur or Rub
Pulmonary: Clear and Symmetric; Negative Wheezes, Rales or Rhonchi
Gastrointestinal: Soft, Non Tender, Non Distended and Normal Bowel Sounds
Skin: Warm and Dry; Negative Rash or Jaundice
Neurological: Awake
Lab / Diagnostic Study Results
10/04/23 10:57
10/04/23 10:57
Abs Immat Gran (auto) 0.4 10^3/uL (0-0.05) H 10/03/23 12:04
Absolute Neuts (auto) 20.8 10^3/uL (1.4-6.5) H 10/03/23 12:04
Absolute Lymphs (auto) 1.1 10^3/uL (1.2-3.4) L 10/03/23 12:04
Absolute Monos (auto) 1.2 10^3/uL (0.1-0.6) H 10/03/23 12:04
Absolute Basos (auto) 0.1 10^3/uL (0-0.2) 10/03/23 12:04
Immature Gran % 1.6 % (0-0.5) H 10/03/23 12:04
Neutrophils % 88.5 % (42.2-75.2) H 10/03/23 12:04
Lymphocytes % 4.8 % (20.5-51.1) L 10/03/23 12:04
Monocytes % 4.9 % (1.7-9.3) 10/03/23 12:04
Eosinophils % 0.0 % (0-6) 10/03/23 12:04
Basophils % 0.2 % (0-2) 10/03/23 12:04
Ur Squamous Epith Cells 3-5 /LPF (Few) 10/04/23 11:41
Microbiology Results
Micro:
10/04/23 12:43 Blood Culture - Pending
Blood/Venous
10/04/23 11:41 Urine Culture - Pending
Urine
Assessment / Plan
Leukocytosis
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
H/o anaphylaxis with penicillin
- would check covid antigen - there is a national increase in cases this summer - similar to other topete
- beyond that no further symptoms to indication need for infectious workup at this time
- attribute leukocytosis to newly diagnosed malignancy
ID service will no longer actively follow this patient please recall for further questions
[2023-10-04 14:24] LABS: Iron 26 ug/dl (49-181)
[2023-10-04 14:33] LABS: Percent Saturation 8 % (20-50); Total Iron Binding Capacity 317 ug/dl (261-462)
[2023-10-04 14:46] LABS: COVID-19 Antigen Negative (Negative)
--- NOTE | 2023-10-04 16:01 | PTOTSP ---
ST Acute Care Evaluation
Pt currently presents with mild pharyngeal and mild-moderate esophageal dysphagia in the setting of a partially-obstructing esophageal mass that is suspected to be malignant. Pt is at an elevated aspiration risk.
Extensive education provided regarding the importance and benefit of PO medications to tx reflux and hiccups, as these will also help reduce his laryngopharyngeal discomfort and difficulty swallowing. Pt is still apprehensive about taking this
medications. Extensive education provided about elevated risk for aspiration from the top and from the bottom from reflux, as well as the compensatory strategies he can take to improve his airway safety.
Recommendations:
- Initiate PO diet of SOFT BITE SIZED SOLIDS and THIN LIQUIDS; meds crushed in puree.
- Aspiration precautions: Small bites, small sips, eat/drink slowly.
- Reflux precautions: Fully upright for all PO intake and for at least 60 minutes after PO intake; overchew all of the solid foods; alternate liquids and solids; small frequent meals.
- [employer] to f/u re: diet tolerance of recommended diet consistencies as well as pt's implementation of the recommended compensatory strategies/precautions.
[2023-10-04 16:31] LABS: Ferritin 22.6 ng/ml (17.9-464.0)
[2023-10-04 18:05] LABS: Hematocrit 21.6 % (39.0-52.0); Hemoglobin 7.5 g/dL (13.0-18.0); Mean Corp Hgb Conc. 34.7 g/dL (33.0-37.0); Mean Corpuscular Hgb 27.7 pg (27.0-31.0); Mean Corpuscular Volume 79.7 fL (80.0-94.0); Mean Platelet Volume 10.7 fL (7.4-10.4); Platelet Count 213 10^3/uL (130-400); Red Blood Cell Count 2.71 10^6/uL (4.70-6.10); Red Cell Dist. Width 16.4 % (11.5-14.5); White Blood Cell Count 20.4 10^3/uL (4.8-10.8)
[2023-10-04] MEDS: NSS (PRESERVATIVE FREE) 10 ML IV (20:41)
[2023-10-04] MEDS: PROTONIX IV 40 MG IV (20:41)
[2023-10-05] MEDS: NSS 1000 IV ×2 (03:41→21:46)
[2023-10-05 07:17] LABS: Hematocrit 25.1 % (39.0-52.0); Hemoglobin 8.5 g/dL (13.0-18.0); Mean Corp Hgb Conc. 33.9 g/dL (33.0-37.0); Mean Corpuscular Hgb 27.8 pg (27.0-31.0); Mean Platelet Volume 10.5 fL (7.4-10.4); Platelet Count 190 10^3/uL (130-400); Red Blood Cell Count 3.06 10^6/uL (4.70-6.10); Red Cell Dist. Width 16.7 % (11.5-14.5); White Blood Cell Count 16.9 10^3/uL (4.8-10.8)
--- NOTE | 2023-10-05 07:35 | W.PN.HOSP.TC ---
Today's Communication/Plan
-
monitor H&H
pureed diet
Iron supplementation
increased baclofen
Assessment / Plan
Assessment / Plan
Physical Exam
General: Well Developed, Well Nourished and No Apparent Distress
HEENT: NormoCephalic, Moist mucous membranes and Atraumatic
Respiratory: Clear
Cardiac: S1/S2 and Regular Rhythm; No Murmur or Rub
GI: Soft, Non Tender, Non Distended and Normal Bowel Sounds; No Organomegaly
Musculoskeletal: No Clubbing, No Cyanosis and No Edema
Skin: No Rash
Neuro: AO x 3 and Nonfocal/grossly intact
Psych: Calm
77M migraines, prostate cancer, hypertension, anxiety p/w difficulty swallowing for past few weeks. Outpatient upper GI barium swallow concerning for distal esophageal mass. Planned for endoscopy, however on evaluation in endoscopy suite pt was
noted to be profoundly fatigued and pale- subsequently referred to ED where he was noted to have severe anemia Hgb 6.6. Patient was transfused 1PRBC and admitted for further evaluation/treatment.
# Severe anemia due to suspected distal esophageal mass with hepatic mets
#acute hypoxic likely from anemia
-IV PPI continued
-Hemoglobin 6.6 improved with transfusion.
-monitor H&H and transfuse goal Hgb>7.5
-CT of chest, abdomen, pelvis with impression of nodular thickening of the distal esophageal wall corresponding to the 7 cm in length nodular area of thickening seen on yesterday's upper GI examination and high level suspicion for esophageal
carcinoma . Endoscopy is recommended.There are greater than 15 low density hepatic masses measuring up to 2 cm consistent with hepatic metastasis. Small-moderate right pleural effusion. Cholelithiasis
-Transfusing with units of blood
-continue supplemental oxygen to keep sat >92
-wean as tolerated
-GI consult appreciated EGD bx today
-Oncology consult appreciated
-speech eval appreciated soft bite sized diet
#hiccups
baclofen started renally dosed
# Leukocytosis likely reactive
-urinalysis not suggestive UTI
-ID eval appreciated abx not indicated at this time
# Hypokalemia/metabolic acidosis/acute kidney injury likely dehydration
-K5.3, CO2 19, BUN 58, creatinine 1.5
-Monitor BMP
-gentle hydration
# History of prostate cancer status post cystectomy
-On anastrozole
# Hypertension
-Blood pressure stable in ER
-Hold irbesartan due to JULIA
-hydralazine prn
# History of anxiety
-lorazepam continued
-Seroquel on hold (patient reports he does not need)
# History of migraines
-On sumatriptan as needed
# DVT prophylaxis
-SCD
# CODE STATUS
-DNR
discussed with patient and his
I spent a total of 50 minutes with the patient or on the floor. More than 50% of this time involved counseling and coordination of care.
Anticipated Discharge: 24 - 48 hours
Subjective/Interval History
-
Date of Service: October 05, 2023
Not tolerating soft bite sized. Diet downgraded to pureed. Hiccups persist.
Objective Data
-
Labs:
Laboratory Results
10/05/23
06:27
WBC 16.9 H
Hgb 8.5 L
Hct 25.1 L
Plt Count 190
Sodium Pending
Potassium Pending
Chloride Pending
Carbon Dioxide Pending
BUN Pending
Creatinine Pending
Glucose Pending
Calcium Pending
Vital Signs:
Vital Signs
Temp Pulse Resp BP Pulse Ox
98.2 F 75 20 140/70 97
10/04/23 23:52 10/04/23 23:52 10/04/23 23:52 10/04/23 23:52 08/23/24 23:52
I&O
10/04/23 10/05/23 10/06/23
06:59 06:59 06:59
Intake Total 740 / 740 2650 / 2650
Balance 740 / 740 2650 / 2650
[2023-10-05 07:44] LABS: Blood Urea Nitrogen 43 mg/dl (9-20); Calcium 8.2 mg/dl (8.4-10.2); Carbon Dioxide 19 mmol/L (22-30); Chloride 107 mmol/L (98-107); Estimated Creatinine Clearance 47 ml/min; Glucose 108 mg/dl (70-99); Magnesium 2.2 mg/dl (1.6-2.3); Phosphorus 3.8 mg/dl (2.5-4.5); Potassium 4.3 mmol/L (3.5-5.1); Sodium 139 mmol/L (135-145); eGFR 51.13
[2023-10-05 07:49] VITALS: BP 136/65
[2023-10-05] MEDS: NSS (PRESERVATIVE FREE) 10 ML IV ×2 (08:46→21:36)
[2023-10-05] MEDS: LIORESAL 2.5 MG PO (08:46)
[2023-10-05] MEDS: PROTONIX IV 40 MG IV ×2 (08:46→21:36)
--- NOTE | 2023-10-05 10:48 | W.PN.ONC ---
Today's Communication / Plan
-
Hb improved
pathology pending
IV ferrlecit
Impression
Impression
Nodular thickening of the distal esophageal wall
Esophageal mass
Hepatic masses concerning for metastatic disease
Weight loss
Dysphagia
Anemia
Microcytosis
Leukocytosis
JULIA
Plan
Plan
1. 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
- s/p EGD w/ biopsies -pathology pending
- discussed w/ patient and patient's daughter
- nutrition consult
- will arrange outpt f/u - outpt PET for staging
2. Iron deficiency anemia
- IV ferrlecit
- follow CBC
- transfuse prn
Will continue follow with you.
Subjective/Objective
Subjective/Objective
feels slightly better - still very weak
Vital Signs:
Vital Signs
Temp Pulse Resp BP Pulse Ox
98.6 F 76 16 136/65 95
10/05/23 07:49 10/05/23 07:49 10/05/23 07:49 10/05/23 07:49 10/05/23 07:49
Lab Results:
Laboratory Data
WBC 16.9 10^3/uL (4.8-10.8) H 10/05/23 06:27
Hgb 8.5 g/dL (13.0-18.0) L 10/05/23 06:27
Plt Count 190 10^3/uL (130-400) 10/05/23 06:27
eGFR 51.13 10/05/23 06:27
Exam: unchanged
--- NOTE | 2023-10-05 11:59 | W.PN.GI.CBS2 ---
Today's Communication / Plan
-
await path
Assessment / Plan
-
The patient is a pleasant 77-year-old male with a past medical history significant for migraines, hypertension, anxiety, prior appendectomy, GERD, history of prostatectomy, who presented to the emergency room after being referred from the endoscopy
unit for evaluation. He has reportedly been having dysphagia for the past several weeks to months with weight loss of 20 pounds. Outpatient evaluation concerning for esophageal mass seen on esophagram. He was post undergo endoscopy today but was
found to be pale and appearing unwell therefore sent to the emergency room found to have a hemoglobin of 6.6. He was started with a blood transfusion and placed on oxygen. CT of the chest, abdomen, and pelvis showing signs of metastatic disease of
the esophagus and liver.
Problem list:
-Dysphagia
-Hiccups
-CT findings showing esophageal mass with liver metastasis, concerning for esophageal malignancy
-Severe microcytic anemia
-Fatigue
-Weight loss
-History of LA grade C esophagitis
-Chronic intermittent GERD
-JULIA
Other prior medical history:
-Intermittent migraines
-Hypertension
-Anxiety
Recommendations:
-continue diet of pureed or soft foods
- will f/u pathology
- oncology following
Subjective
Subjective
Date of Service: October 05, 2023
Discussed with patient again findings of egd. Nonobstructing mass with long ulceration/nodularity below.
He does have dysphagia to solids but tolerates purees
Objective
Data Reviewed
Laboratory Data:
Laboratory Results
10/05/23 06:27
10/05/23 06:27
Laboratory Results
Phosphorus 3.8 mg/dl (2.5-4.5) 10/05/23 06:27
Magnesium 2.2 mg/dl (1.6-2.3) 10/05/23 06:27
Total Bilirubin 0.5 mg/dl (0.2-1.3) 10/03/23 12:04
AST 61 U/L (17-59) H 10/03/23 12:04
ALT 34 U/L (0-50) 10/03/23 12:04
Alkaline Phosphatase 107 U/L (38-126) 10/03/23 12:04
Vital Signs and I&O:
Vital Signs
Temp Pulse Resp BP Pulse Ox
98.6 F 76 16 136/65 95
10/05/23 07:49 10/05/23 07:49 10/05/23 07:49 10/05/23 07:49 10/05/23 07:49
I&O
10/04/23 10/05/23 10/06/23
06:59 06:59 06:59
Intake Total 740 / 740 2650 / 2650
Balance 740 / 740 2650 / 2650
Physical Exam
Physical Exam
Neuro: Non Focal
[2023-10-05] MEDS: FERRLECIT 110 MG IV (13:51)
[2023-10-05 15:05] VITALS: BP 128/68; PULSE 69; O2SAT 93
[2023-10-05 15:10] VITALS: BP 134/73
[2023-10-05 15:37] VITALS: BP 128/69; PULSE 80; O2SAT 93
--- NOTE | 2023-10-05 16:02 | CM ---
Patient seen bedside with significant other, discussed OT recommendations of SNF, PT recommendations of [facility]. Patient reports he would likely rather go home with therapy than a facility, but unsure on what he would like to do at this time and would
like to think about it. CM will check in with patient tomorrow on SNF vs [facility]. CM will continue to follow for all discharge planning needs.
Plan; home with [facility] vs SNF, patient unsure at this time.
[2023-10-05] MEDS: LIORESAL 5 MG PO ×2 (16:36→21:35)
[2023-10-05 18:01] LABS: Hematocrit 25.4 % (39.0-52.0); Hemoglobin 8.6 g/dL (13.0-18.0)
[2023-10-05] MEDS: ATIVAN 4 MG PO (21:35)
[2023-10-05] MEDS: AMBIEN 10 MG PO (21:35)
[2023-10-05 23:00] VITALS: BP 153/86
[2023-10-06 07:00] VITALS: BP 158/91
--- NOTE | 2023-10-06 07:34 | W.PN.HOSP.TC ---
Today's Communication/Plan
-
IV Protonix switched to PO
baclofen switched to Thorazine
PT/OT
monitor H&H
Assessment / Plan
Assessment / Plan
Physical Exam
General: Well Developed, Well Nourished and No Apparent Distress
HEENT: NormoCephalic, Moist mucous membranes and Atraumatic
Respiratory: Clear
Cardiac: S1/S2 and Regular Rhythm; No Murmur or Rub
GI: Soft, Non Tender, Non Distended and Normal Bowel Sounds; No Organomegaly
Musculoskeletal: No Clubbing, No Cyanosis and No Edema
Skin: No Rash
Neuro: AO x 3 and Nonfocal/grossly intact
Psych: Calm
77M migraines, prostate cancer, hypertension, anxiety p/w difficulty swallowing for past few weeks. Outpatient upper GI barium swallow concerning for distal esophageal mass. Planned for endoscopy, however on evaluation in endoscopy suite pt was
noted to be profoundly fatigued and pale- subsequently referred to ED where he was noted to have severe anemia Hgb 6.6. Patient was transfused 1PRBC and admitted for further evaluation/treatment.
# Severe anemia due to suspected distal esophageal mass with hepatic mets
#acute hypoxic likely from anemia
-IV PPI switched to PO
-Hemoglobin 6.6 improved with transfusion.
-monitor H&H and transfuse goal Hgb>7.5
-CT of chest, abdomen, pelvis with impression of nodular thickening of the distal esophageal wall corresponding to the 7 cm in length nodular area of thickening seen on yesterday's upper GI examination and high level suspicion for esophageal
carcinoma . Endoscopy is recommended.There are greater than 15 low density hepatic masses measuring up to 2 cm consistent with hepatic metastasis. Small-moderate right pleural effusion. Cholelithiasis
-Transfusing with units of blood
-continue supplemental oxygen to keep sat >92
-wean as tolerated
-GI consult appreciated EGD bx completed
-Oncology consult appreciated
-speech eval appreciated soft bite sized diet, later downgraded to pureed d/t pt's tolerance
#hiccups
unclear benefit baclofen switched to Thorazine
# Leukocytosis likely reactive
-urinalysis not suggestive UTI
-ID eval appreciated abx not indicated at this time
# Hyperkalemia/metabolic acidosis/acute kidney injury likely dehydration
-Hyperkalemia resolved
-Alejo resolving Cr 1.5 trended down to 1.2
-Monitor BMP
-gentle hydration
# History of prostate cancer status post cystectomy
-On anastrozole
# Hypertension
-Blood pressure stable in ER
-Hold irbesartan due to ALEJO
-hydralazine prn
# History of anxiety
-lorazepam continued
-Seroquel on hold (patient reports he does not need)
# History of migraines
-On sumatriptan as needed
PT/OT SNF rehab
DVT prophylaxis SCD
CODE STATUS DNR
I spent a total of 50 minutes with the patient or on the floor. More than 50% of this time involved counseling and coordination of care.
Anticipated Discharge: 24 - 48 hours
Subjective/Interval History
-
Date of Service: October 06, 2023
Hiccups persist. Unclear benefit baclofen switched to Thorazine
Objective Data
-
Labs:
Laboratory Results
10/06/23
06:00
WBC Pending
Hgb Pending
Hct Pending
Plt Count Pending
Sodium Pending
Potassium Pending
Chloride Pending
Carbon Dioxide Pending
BUN Pending
Creatinine Pending
Glucose Pending
Calcium Pending
Vital Signs:
Vital Signs
Temp Pulse Resp BP Pulse Ox
98.1 F 81 16 153/86 98
10/05/23 23:00 10/05/23 23:00 10/05/23 23:00 10/05/23 23:00 10/05/23 23:00
I&O
10/05/23 10/06/23 10/07/23
06:59 06:59 06:59
Intake Total 2650 / 2650 2039
Balance 2650 / 2650 2039
[2023-10-06] MEDS: NSS (PRESERVATIVE FREE) 10 ML IV (08:29)
[2023-10-06] MEDS: PROTONIX IV 40 MG IV (08:30)
[2023-10-06] MEDS: LIORESAL 5 MG PO (08:30)
[2023-10-06 09:22] LABS: Hematocrit 26.2 % (39.0-52.0); Hemoglobin 8.7 g/dL (13.0-18.0); Mean Corp Hgb Conc. 33.2 g/dL (33.0-37.0); Mean Corpuscular Hgb 27.6 pg (27.0-31.0); Mean Corpuscular Volume 83.2 fL (80.0-94.0); Mean Platelet Volume 10.4 fL (7.4-10.4); Platelet Count 174 10^3/uL (130-400); Red Blood Cell Count 3.15 10^6/uL (4.70-6.10); Red Cell Dist. Width 16.9 % (11.5-14.5); White Blood Cell Count 17.2 10^3/uL (4.8-10.8)
[2023-10-06 09:28] LABS: Blood Urea Nitrogen 32 mg/dl (9-20); Calcium 8.1 mg/dl (8.4-10.2); Carbon Dioxide 20 mmol/L (22-30); Chloride 108 mmol/L (98-107); Estimated Creatinine Clearance 55 ml/min; Glucose 102 mg/dl (70-99); Magnesium 2.2 mg/dl (1.6-2.3); Phosphorus 3.4 mg/dl (2.5-4.5); Potassium 4.3 mmol/L (3.5-5.1); Sodium 139 mmol/L (135-145); eGFR > 60.00
[2023-10-06] MEDS: FERRLECIT 110 MG IV (13:31)
[2023-10-06] MEDS: THORAZINE 25 MG PO ×2 (14:08→21:22)
[2023-10-06 15:32] VITALS: BP 133/73
[2023-10-06] MEDS: PROTONIX 40 MG PO (21:22)
[2023-10-06] MEDS: ATIVAN 4 MG PO (21:22)
[2023-10-06] MEDS: AMBIEN 10 MG PO (21:23)
[2023-10-06 23:11] VITALS: BP 127/54
--- NOTE | 2023-10-07 07:36 | W.PN.HOSP.TC ---
Today's Communication/Plan
-
abx
oxygen supplementation as necessary, wean as tolerated
PT/OT
monitor H&H
Assessment / Plan
Assessment / Plan
Physical Exam
General: Well Developed, Well Nourished and No Apparent Distress
HEENT: NormoCephalic, Moist mucous membranes and Atraumatic
Respiratory: Clear
Cardiac: S1/S2 and Regular Rhythm; No Murmur or Rub
GI: Soft, Non Tender, Non Distended and Normal Bowel Sounds; No Organomegaly
Musculoskeletal: No Clubbing, No Cyanosis and No Edema
Skin: No Rash
Neuro: AO x 3 and Nonfocal/grossly intact
Psych: Calm
77M migraines, prostate cancer, hypertension, anxiety p/w difficulty swallowing for past few weeks. Outpatient upper GI barium swallow concerning for distal esophageal mass. Planned for endoscopy, however on evaluation in endoscopy suite pt was
noted to be profoundly fatigued and pale- subsequently referred to ED where he was noted to have severe anemia Hgb 6.6. Patient was transfused 1PRBC and admitted for further evaluation/treatment.
# Severe anemia due to suspected distal esophageal mass with hepatic mets
#acute hypoxic likely from anemia
-IV PPI switched to PO
-Hemoglobin 6.6 improved with transfusion.
-monitor H&H and transfuse goal Hgb>7.5
-CT of chest, abdomen, pelvis with impression of nodular thickening of the distal esophageal wall corresponding to the 7 cm in length nodular area of thickening seen on yesterday's upper GI examination and high level suspicion for esophageal
carcinoma . Endoscopy is recommended.There are greater than 15 low density hepatic masses measuring up to 2 cm consistent with hepatic metastasis. Small-moderate right pleural effusion. Cholelithiasis
-Received 3U transfusions this hospitalization
-continue supplemental oxygen to keep sat >92
-wean as tolerated
-GI consult appreciated EGD bx completed
-Oncology consult appreciated
-speech eval appreciated soft bite sized diet, later downgraded to pureed d/t pt's tolerance
#hiccups
unclear benefit baclofen switched to Thorazine
Patient since improved with Thorazine but sedated
Thorazine switched from scheduled to prn
# 10/07/23 Likely Aspiration PNA
initially weaned off oxygen supplementation, patient later required oxygen again low dose 2L, leukocytosis worsen
CXR concerning for PNA
started Cefipime (PCN allergy) and Doxycycline (minimizing QT prolonging medications)
# Hyperkalemia/metabolic acidosis/acute kidney injury likely dehydration
-Hyperkalemia resolved
-Alejo resolving Cr 1.5 since trended down
-Monitor BMP
-gentle hydration completed
# History of prostate cancer status post cystectomy
-On anastrozole
# Hypertension
-Blood pressure stable in ER
-Hold irbesartan due to ALEJO
-hydralazine prn
# History of anxiety
-lorazepam continued
-Seroquel on disconinued (patient reports he does not need)
# History of migraines
-On sumatriptan as needed
PT/OT SNF rehab
DVT prophylaxis SCD
CODE STATUS DNR
I spent a total of 50 minutes with the patient or on the floor. More than 50% of this time involved counseling and coordination of care.
Anticipated Discharge: 24 - 48 hours
Subjective/Interval History
-
Date of Service: October 07, 2023
hiccups improved back on oxygen supplementation though low dose. Conversational dyspnea.
Objective Data
-
Labs:
Laboratory Results
10/07/23
07:30
WBC Pending
Hgb Pending
Hct Pending
Plt Count Pending
Sodium Pending
Potassium Pending
Chloride Pending
Carbon Dioxide Pending
BUN Pending
Creatinine Pending
Glucose Pending
Calcium Pending
Vital Signs:
Vital Signs
Temp Pulse Resp BP Pulse Ox
98.2 F 85 18 127/54 94
10/06/23 23:11 10/06/23 23:11 10/06/23 23:11 10/06/23 23:11 10/06/23 23:11
I&O
10/06/23 10/07/23 10/08/23
06:59 06:59 06:59
Intake Total 2039 1210 / 1210
Balance 2039 1210 / 1210
[2023-10-07 07:42] VITALS: BP 134/82
[2023-10-07] MEDS: THORAZINE 25 MG PO ×2 (07:52→19:17)
[2023-10-07] MEDS: PROTONIX 40 MG PO ×2 (07:52→19:17)
[2023-10-07 08:04] LABS: Hematocrit 26.9 % (39.0-52.0); Mean Corp Hgb Conc. 33.5 g/dL (33.0-37.0); Mean Corpuscular Hgb 27.4 pg (27.0-31.0); Mean Platelet Volume 10.4 fL (7.4-10.4); Platelet Count 194 10^3/uL (130-400); Red Blood Cell Count 3.28 10^6/uL (4.70-6.10); White Blood Cell Count 19.6 10^3/uL (4.8-10.8)
[2023-10-07 08:37] LABS: Blood Urea Nitrogen 24 mg/dl (9-20); Calcium 8.1 mg/dl (8.4-10.2); Carbon Dioxide 22 mmol/L (22-30); Chloride 106 mmol/L (98-107); Estimated Creatinine Clearance 60 ml/min; Glucose 97 mg/dl (70-99); Magnesium 2.1 mg/dl (1.6-2.3); Sodium 137 mmol/L (135-145); eGFR > 60.00
--- NOTE | 2023-10-07 10:35 | CM ---
Addendum entered by Shira Abdullahi 10/07/23 14:28:
Plan: home with [facility].
Original Note:
Spoke with patient bedside.
PT/OT recommending home with [facility].
Options reviewed.
Patient chose [facility].
Referral placed via [facility].
Plan: home with [facility] when stable.
[2023-10-07 13:07] VITALS: O2SAT 87; O2SAT 94
--- NOTE | 2023-10-07 13:08 | VNURNOTE ---
Liaison briefly met with patient to discuss [facility] nurse/therapy, visits, schedule and homebound status. He was getting ready to go off unit for a test. Patient is agreeable to [facility] and understands that [facility] will contact them for start of care in
1-2 days after discharge from .
[facility] referral in [facility], [facility] Intake aware. Patient confirms his PCP is Dr Jordan Pride in [facility] [phone]
[2023-10-07] MEDS: FERRLECIT 110 MG IV (13:18)
[2023-10-07 15:00] VITALS: BP 127/83
[2023-10-07 15:36] LABS: Venous Blood Gas B.E. -3.5 mmol/L (-4 to +4); Venous Blood Gas HCO3 21.4 mmol/L (22-27); Venous Blood Gas pCO2 37 mmHg (35-48); Venous Blood Gas pH 7.37 (7.32-7.43); Venous Blood Gas pO2 38 mmHg (30-50)
[2023-10-07] MEDS: STERILE WATER FOR INJECTION 10 ML IV (15:42)
[2023-10-07] MEDS: MAXIPIME 2000 MG IV (15:42)
[2023-10-07 16:23] VITALS: O2SAT 93
[2023-10-07] MEDS: VIBRAMYCIN 100 MG PO (19:17)
[2023-10-07] MEDS: ATIVAN 4 MG PO (21:02)
[2023-10-07] MEDS: AMBIEN 10 MG PO (21:02)
[2023-10-07 23:02] VITALS: BP 128/73
[2023-10-08] MEDS: STERILE WATER FOR INJECTION 10 ML IV ×2 (01:02→07:45)
[2023-10-08] MEDS: MAXIPIME 2000 MG IV ×2 (01:02→07:45)
[2023-10-08 07:00] VITALS: BP 160/88
[2023-10-08 07:04] LABS: Hematocrit 26.5 % (39.0-52.0); Hemoglobin 8.8 g/dL (13.0-18.0); Mean Corp Hgb Conc. 33.2 g/dL (33.0-37.0); Mean Corpuscular Volume 81.3 fL (80.0-94.0); Mean Platelet Volume 9.9 fL (7.4-10.4); Platelet Count 203 10^3/uL (130-400); Red Blood Cell Count 3.26 10^6/uL (4.70-6.10); Red Cell Dist. Width 17.4 % (11.5-14.5); White Blood Cell Count 18.6 10^3/uL (4.8-10.8)
[2023-10-08 07:18] LABS: Blood Urea Nitrogen 22 mg/dl (9-20); Carbon Dioxide 22 mmol/L (22-30); Chloride 104 mmol/L (98-107); Estimated Creatinine Clearance 55 ml/min; Glucose 103 mg/dl (70-99); Magnesium 2.1 mg/dl (1.6-2.3); Phosphorus 3.3 mg/dl (2.5-4.5); Potassium 4.1 mmol/L (3.5-5.1); Sodium 135 mmol/L (135-145); eGFR > 60.00
--- NOTE | 2023-10-08 07:38 | W.PN.HOSP.TC ---
Today's Communication/Plan
-
cefipime transitioned to cefdinir
monitor H&H respiratory status
trend wbc
repeat Home oxygen assessment in AM
Assessment / Plan
Assessment / Plan
Physical Exam
General: Well Developed, Well Nourished and No Apparent Distress
HEENT: NormoCephalic, Moist mucous membranes and Atraumatic
Respiratory: Clear
Cardiac: S1/S2 and Regular Rhythm; No Murmur or Rub
GI: Soft, Non Tender, Non Distended and Normal Bowel Sounds; No Organomegaly
Musculoskeletal: No Clubbing, No Cyanosis and No Edema
Skin: No Rash
Neuro: AO x 3 and Nonfocal/grossly intact
Psych: Calm
77M migraines, prostate cancer, hypertension, anxiety p/w difficulty swallowing for past few weeks. Outpatient upper GI barium swallow concerning for distal esophageal mass. Planned for endoscopy, however on evaluation in endoscopy suite pt was
noted to be profoundly fatigued and pale- subsequently referred to ED where he was noted to have severe anemia Hgb 6.6. Patient was transfused 1PRBC and admitted for further evaluation/treatment.
# Severe anemia due to suspected distal esophageal mass with hepatic mets
#acute hypoxic likely from anemia
-IV PPI switched to PO
-Hemoglobin 6.6 improved with transfusion.
-monitor H&H and transfuse goal Hgb>7.5
-CT of chest, abdomen, pelvis with impression of nodular thickening of the distal esophageal wall corresponding to the 7 cm in length nodular area of thickening seen on yesterday's upper GI examination and high level suspicion for esophageal
carcinoma . Endoscopy is recommended.There are greater than 15 low density hepatic masses measuring up to 2 cm consistent with hepatic metastasis. Small-moderate right pleural effusion. Cholelithiasis
-Received 3U transfusions this hospitalization
-continue supplemental oxygen to keep sat >92
-wean as tolerated
-GI consult appreciated EGD bx completed
-Oncology consult appreciated
-speech eval appreciated soft bite sized diet, later downgraded to pureed d/t pt's tolerance
#hiccups
unclear benefit baclofen switched to Thorazine
Patient since improved with Thorazine but sedated
Thorazine switched from scheduled to prn
# 10/07/23 Likely Aspiration PNA
initially weaned off oxygen supplementation, patient later required oxygen again low dose 2L, leukocytosis worsen
CXR concerning for PNA
started Cefipime (PCN allergy) and Doxycycline (minimizing QT prolonging medications)
patient since improved, Cefipime transitioned to cefdinir
# Hyperkalemia/metabolic acidosis/acute kidney injury likely dehydration
-Hyperkalemia resolved
-Alejo resolving Cr 1.5 since trended down
-Monitor BMP
-gentle hydration completed
# History of prostate cancer status post cystectomy
-On anastrozole
# Hypertension
-Blood pressure stable in ER
-Hold irbesartan due to ALEJO
-hydralazine prn
# History of anxiety
-lorazepam continued
-Seroquel discontinued (patient reports he does not need)
# History of migraines
-On sumatriptan as needed
PT/OT SNF rehab
DVT prophylaxis SCD
CODE STATUS DNR
I spent a total of 50 minutes with the patient or on the floor. More than 50% of this time involved counseling and coordination of care.
Anticipated Discharge: Within 24 hours
Subjective/Interval History
-
Date of Service: October 08, 2023
Seen and examined at bedside in no acute distress. Hiccups significantly improved. Ambulating without issues on room air
Objective Data
-
Labs:
Laboratory Results
10/08/23
05:44
WBC 18.6 H
Hgb 8.8 L
Hct 26.5 L
Plt Count 203
Sodium 135
Potassium 4.1
Chloride 104
Carbon Dioxide 22
BUN 22 H
Creatinine 1.2
Glucose 103 H
Calcium 8.0 L
Vital Signs:
Vital Signs
Temp Pulse Resp BP Pulse Ox
98.1 F 83 18 128/73 92
10/07/23 23:02 10/07/23 23:02 10/07/23 23:02 10/07/23 23:02 10/07/23 23:02
I&O
10/07/23 10/08/23 10/09/23
06:59 06:59 06:59
Intake Total 1210 / 1210 1320 / 1320
Balance 1210 / 1210 1320 / 1320
[2023-10-08] MEDS: VIBRAMYCIN 100 MG PO ×2 (07:45→19:32)
[2023-10-08] MEDS: PROTONIX 40 MG PO ×2 (07:45→19:32)
[2023-10-08] MEDS: FERRLECIT 110 MG IV (13:43)
[2023-10-08] MEDS: OMNICEF 300 MG PO ×2 (13:43→19:32)
--- NOTE | 2023-10-08 14:23 | W.PN.ONC2 ---
Today's Communication / Plan
-
Hgb stable
IV ferrlicit
pathology pending
abx per primary service
Impression
Impression
Nodular thickening of the distal esophageal wall
EGD fungating mass was found in the lower third of the esophagus 10/03
Hepatic masses concerning for metastatic disease
Weight loss
Dysphagia-working with speech therapy
Anemia/ALIX -stable s/p 3units prbc during hospitalization, last 10/03 and s/p ferrlicit x 5 dose
Leukocytosis -improving
JULIA -resolved
PNA
Plan
Plan
1. 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
- s/p EGD w/ biopsies -pathology pending
- will arrange outpt f/u - outpt PET for staging
2. Iron deficiency anemia
- IV ferrlecit
- follow CBC
- transfuse prn
Subjective/Objective
Chief Complaint
improved leukocytosis
stable Hgb
continues with swallow therapy
ambulating with walker
Subjective
afebrile, no hypotension, weaned from 2L NC to room air
denies pain
denies overt bleeding
Vital Signs:
Vital Signs
Temp Pulse Resp BP Pulse Ox
97.8 F 93 22 160/88 95
10/08/23 07:00 10/08/23 07:00 10/08/23 07:00 10/08/23 07:00 10/08/23 08:00
Lab Results:
Laboratory Data
WBC 18.6 10^3/uL (4.8-10.8) H 10/08/23 05:44
Hgb 8.8 g/dL (13.0-18.0) L 10/08/23 05:44
Plt Count 203 10^3/uL (130-400) 10/08/23 05:44
eGFR > 60.00 10/08/23 05:44
Physical Exam
General: No Apparent Distress
HEENT:Moist mucous membranes, anicteric
Respiratory: Clear
Cardiac: S1/S2
GI: Soft, Non Tender, Non Distended
Skin: No Rash
Ext no edema
Neuro: AO x 3 and Nonfocal/grossly intact
Psych: Calm
Review of Systems
Review of Systems
ROS notable for subjective, otherwise negative
[2023-10-08 15:00] VITALS: BP 134/88
--- NOTE | 2023-10-08 15:24 | CM ---
Patient seen bedside with significant other, discussed plan for discharge home with [facility] when stable. Significant other and patient inquiring about patients LTC insurance- [email or web address] ( ), will provide home health
aid or any additional coverage, CM will call to identify. CM will continue to follow for all discharge planning needs.
Plan; home with [facility] when stable, will call LTC insurance to see if they will offer additional support/resources.
[2023-10-08] MEDS: AMBIEN 10 MG PO (22:33)
[2023-10-08] MEDS: ATIVAN 4 MG PO (22:33)
[2023-10-08 22:44] VITALS: BP 133/81
[2023-10-09 07:02] LABS: Hematocrit 28.5 % (39.0-52.0); Hemoglobin 9.3 g/dL (13.0-18.0); Mean Corp Hgb Conc. 32.6 g/dL (33.0-37.0); Mean Corpuscular Hgb 27.1 pg (27.0-31.0); Mean Corpuscular Volume 83.1 fL (80.0-94.0); Mean Platelet Volume 10.9 fL (7.4-10.4); Platelet Count 220 10^3/uL (130-400); Red Blood Cell Count 3.43 10^6/uL (4.70-6.10); Red Cell Dist. Width 18.5 % (11.5-14.5)
[2023-10-09 07:19] LABS: Blood Urea Nitrogen 19 mg/dl (9-20); Calcium 8.3 mg/dl (8.4-10.2); Carbon Dioxide 21 mmol/L (22-30); Chloride 103 mmol/L (98-107); Estimated Creatinine Clearance 55 ml/min; Glucose 89 mg/dl (70-99); Magnesium 2.2 mg/dl (1.6-2.3); Phosphorus 3.4 mg/dl (2.5-4.5); Potassium 4.2 mmol/L (3.5-5.1); Sodium 135 mmol/L (135-145); eGFR > 60.00
--- NOTE | 2023-10-09 07:31 | W.PN.HOSP.TC ---
Today's Communication/Plan
-
discharge
Assessment / Plan
Assessment / Plan
Physical Exam
General: Well Developed, Well Nourished and No Apparent Distress
HEENT: NormoCephalic, Moist mucous membranes and Atraumatic
Respiratory: Clear
Cardiac: S1/S2 and Regular Rhythm; No Murmur or Rub
GI: Soft, Non Tender, Non Distended and Normal Bowel Sounds; No Organomegaly
Musculoskeletal: No Clubbing, No Cyanosis and No Edema
Skin: No Rash
Neuro: AO x 3 and Nonfocal/grossly intact
Psych: Calm
77M migraines, prostate cancer, hypertension, anxiety p/w difficulty swallowing for past few weeks. Outpatient upper GI barium swallow concerning for distal esophageal mass. Planned for endoscopy, however on evaluation in endoscopy suite pt was
noted to be profoundly fatigued and pale- subsequently referred to ED where he was noted to have severe anemia Hgb 6.6. Patient was transfused 1PRBC and admitted for further evaluation/treatment.
# Severe anemia due to suspected distal esophageal mass with hepatic mets
#acute hypoxic likely from anemia
-IV PPI switched to PO
-Hemoglobin 6.6 improved with transfusion.
-monitor H&H and transfuse goal Hgb>7.5, Hgb continues to trend up
-CT of chest, abdomen, pelvis with impression of nodular thickening of the distal esophageal wall corresponding to the 7 cm in length nodular area of thickening seen on yesterday's upper GI examination and high level suspicion for esophageal
carcinoma . Endoscopy recommended. There was concern for hepatic metastasis. Small-moderate right pleural effusion. Cholelithiasis
-Received 3U transfusions this hospitalization
-oxygen supplementation eventually weaned off as below
-GI consult appreciated EGD bx completed pathology results appreciated Invasive Adenocarcinoma results discussed with patient
-Oncology consult appreciated
-speech eval appreciated soft bite sized diet, later downgraded to pureed d/t pt's tolerance
#hiccups
unclear benefit baclofen switched to Thorazine
Patient since improved with Thorazine but sedated
Thorazine switched from scheduled to prn, symptoms remains significantly improved manageable
# 10/07/23 Likely Aspiration PNA
initially weaned off oxygen supplementation, patient later required oxygen again low dose 2L, leukocytosis worsen
CXR concerning for PNA
started Cefipime (PCN allergy) and Doxycycline (minimizing QT prolonging medications)
patient since improved, Cefipime transitioned to cefdinir
weaned off oxygen supplementation following start of abx
Leukocytosis trending down
planned for 5 more days abx
# Hyperkalemia/metabolic acidosis/acute kidney injury likely dehydration
-Hyperkalemia resolved
-Alejo resolving Cr 1.5 since trended down
-Monitor BMP
-gentle hydration completed
# History of prostate cancer status post cystectomy
-On anastrozole
# Hypertension
-irbesartan held due to ALEJO since resolved, ok to resume on discharge
-hydralazine prn
# History of anxiety
-lorazepam continued
-Seroquel discontinued (patient reports he does not need)
# History of migraines
-On sumatriptan as needed
PT/OT Home Health vs SNF rehab (patient prefers home)
DVT prophylaxis SCD
CODE STATUS DNR
Medically stable for discharge home with home health and outpatient follow up recommendations
Total Time Preparing Discharge ___50____ minutes including examination of the patient, summary of the hospital stay, instructions for continuing care to all relevant caregivers; and preparation of discharge records, prescriptions, and referral
forms if necessary.
Anticipated Discharge: Today
Subjective/Interval History
-
Date of Service: October 09, 2023
Seen and examined at bedside in no acute distress ambulating without issues. Hiccups significantly improved. Reports overall feeling well. Repeat Home oxygen assessment notes no need.
Objective Data
-
Labs:
Laboratory Results
10/09/23
04:35
WBC 16.0 H
Hgb 9.3 L
Hct 28.5 L
Plt Count 220
Sodium 135
Potassium 4.2
Chloride 103
Carbon Dioxide 21 L
BUN 19
Creatinine 1.2
Glucose 89
Calcium 8.3 L
Vital Signs:
Vital Signs
Temp Pulse Resp BP Pulse Ox
99.9 F 86 18 133/81 93
10/08/23 22:44 10/08/23 22:44 10/08/23 22:44 10/08/23 22:44 10/08/23 22:44
I&O
10/08/23 10/09/23 10/10/23
06:59 06:59 06:59
Intake Total 1320 / 1320 590 / 590
Output Total 100 / 100
Balance 1320 / 1320 490 / 490
[2023-10-09 07:37] VITALS: BP 155/86
[2023-10-09] MEDS: PROTONIX 40 MG PO (09:48)
[2023-10-09] MEDS: VIBRAMYCIN 100 MG PO (09:48)
[2023-10-09] MEDS: OMNICEF 300 MG PO (09:48)
--- NOTE | 2023-10-09 12:06 | CM ---
Addendum entered by Laurel Sánchez 10/09/23 15:07:
Private duty caregiver information placed in patients chart along with contact number for [employer] [facility] insurance.
Original Note:
Patient seen bedside, CM placed call to [facility] insurance- [employer] ( ) as insurance will only speak to CM if patient is present, patient does give verbal authorization for CM to speak to insurance regarding policy.
CM informed that per home care policy, patient receive home care/aides with coverage up to $150 per day. Home care coverage includes any assistance patient may need regarding activities of daily living. Per insurance, patient does not need to use a
specific home care/private duty caregiver, will need to submit direct claims to , option 1, then option 5, then option 3. CM will provide list of private duty caregivers to patient upon discharge. Patient reports his daughter will be
staying with his for a few days post discharge. CM will continue to follow for all discharge planning needs. IMM reviewed, signed, placed in chart.
Plan; home with [facility], list of private duty caregivers, watch for home O2 eval.
--- NOTE | 2023-10-09 12:09 | W.PN.UPDATE ---
Update Note
Progress Note Update
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 copy provided to them. Follow up for further oncology eval and OP pet scan.
[2023-10-09 12:41] VITALS: BP 140/93; PULSE 82; O2SAT 94
[2023-10-09 14:55] VITALS: BP 144/88
[2023-10-09] MEDS: FERRLECIT 110 MG IV (15:11)
--- NOTE | 2023-10-09 15:57 | W.DCSUMMARY ---
Discharge Summary
Discharge Data
Date of Admission: 10/03/23
Date of Discharge: 10/09/23
-
Pending Results: No
Discharge Plan
-
Patient Disposition: Home with Home Care
Discharge Diagnosis/Procedures: Severe anemia due to suspected distal esophageal mass with hepatic metastasis
Acute Hypoxia resolved
hiccups
Aspiration pneumonia resolving
Hyperkalemia resolved
metabolic acidosis resolved
acute kidney injury likely due to dehydration resolved
Hypertension
Condition: Fair
Additional Diets: Pureed diet with daily ensure supplement choice of flavor
Activity: As tolerated
Driving Restrictions: Not until seen by your Dr
Bathing Restrictions: None
Blood Work: Please repeat CBC and BMP with primary care provider in 1 week of discharge.
Other Services: PT and OT
Activity Restrictions/Additional Instructions:
Please follow up with primary care provider and oncology in 1 week of discharge. Follow up with GI in 1 month of discharge.
Cefdinir and Doxycycline have been prescribed for 5 more days to treat pneumonia.
Doxycycline Precautions
Take with at least 6 oz H2O
Take with food but no calcium containing products like milk or cheese
Ideally you would not take any multivitamins, calcium, magnesium or zinc containing products.
If you must take one of these products make sure that the pills are by at least 3 hours.
Sit up for at least 30 minutes after each dose to prevent heartburn.
Your skin will be more sensitive to the sun while you are on doxycycline - it will be very easy for you to get a sunburn.
Thorazine has been prescribed as needed for hiccups. Avoid driving, use of heavy machinery, or any activity that requires alertness/concentration while using due to concern sedation.
Protonix has been prescribed for GERD/esophagitis. Twice a day dosing for 1 week then reduce to daily dosing.
Seroquel has been discontinued as you have not required during hospitalization.
Please take medications as prescribed/recommended and follow up with primary care provider and/or other healthcare provider involved in your care for refills and/or further adjustment to your medication regimen as necessary.
Referrals:
Hesham Cabrera MD [Active] - in one month
Yevgeniy Amaro DO [Active] - in one week
PRIVATE,PHYSICIAN [Family Provider] - in one week
Prescriptions:
New
pantoprazole 40 mg Tablet,Delayed Release (Dr/Ec)
40 mg PO BID Qty: 60 0RF
Rx Instructions:
reduce to daily after 1 week
doxycycline hyclate 100 mg Capsule
100 mg PO Q12 5 Days Qty: 10 0RF
chlorpromazine 25 mg Tablet
25 mg PO TIDPRN PRN (Reason: hiccups) Qty: 30 0RF
cefdinir 300 mg Capsule
300 mg PO Q12 5 Days Qty: 10 0RF
Continued
anastrozole 1 mg Tablet
1 mg PO TU
clomiphene citrate 50 mg Tablet
25 mg PO DAILY
Patient Comments:
10/03/23: take for 20 days, stop for 10 days, patient is unsure when he started on the current 20 day cycle.
lorazepam 1 mg Tablet
4 mg PO HS
Patient Comments:
10/03/23: last filled 09/20/23 for 150 tablets over 30 days.
zolpidem 10 mg Tablet
10 mg PO HS
Patient Comments:
10/03/23: last filled 09/26/23 for 30 tablets over 30 days
tadalafil 5 mg Tablet
5 mg PO DAILY
sumatriptan succinate 100 mg Tablet
50 - 100 mg PO DAILYPRN PRN (Reason: migraine)
bismuth subsalicylate [Pepto-Bismol] 262 mg/15 mL Suspension
524 mg PO DAILYPRN PRN (Reason: GI issues)
naproxen sodium [Aleve] 220 mg Tablet
880 mg PO DAILYPRN PRN (Reason: headache)
irbesartan 150 mg Tablet
150 mg PO DAILY
testosterone 20.25 mg/1.25 gram (1.62 %) Gel In Metered-Dose Pump
3 pump TOPICAL DAILY
Discontinued
quetiapine 50 mg Tablet
100 mg PO HS
Discharge Orders:
Discharge Patient (As Directed); Ordered 10/09/23
Ordered By: Rosalio Alexanrda
Discharge Date and Time
Print Language: KAZAKH
== END 2023-10-09 17:56 | disposition home health service (06) | DRG 374 ==
LOC: 4 WEST ACU 16:00
PROVIDERS: Internal Medicine; Nurse Practitioner Family; Registered Nurse; ADMITTING PHYSICIAN Internal Medicine; CONSULT PHYSICIAN Specialist; EMERGENCY PHYSICIAN Student in an Organized Health Care Education/Training Program; OTHER PHYSICIAN Internal Medicine Hematology & Oncology; OTHER PHYSICIAN Student in an Organized Health Care Education/Training Program
PROC: 30233N1 Transfusion of Nonautologous Red Blood Cells into Peripheral Vein, Percutaneous Approach (ICD-10-PCS; 2023-10-03)
PROC: 0DB58ZX Excision of Esophagus, Via Natural or Artificial Opening Endoscopic, Diagnostic (ICD-10-PCS; 2023-10-04)
DX: C15.5 Malignant neoplasm of lower third of esophagus (principal); J69.0 Pneumonitis due to inhalation of food and vomit; C78.7 Secondary malignant neoplasm of liver and intrahepatic bile duct; E87.20 Acidosis, unspecified; N17.9 Acute kidney failure, unspecified; D64.9 Anemia, unspecified; Z66 Do not resuscitate; E87.5 Hyperkalemia; I10 Essential (primary) hypertension; R06.6 Hiccough
CPT/HCPCS: 88305; 36430; 71046; 71260; 74177; 74246; 80048; 80053; 81003; 81015; 82728; 82805; 83540; 83550; 83735; 84100; 85014; 85018; 85025; 85027; 86850; 86900; 86901; 86920; 87040; 87086; 87811; 88342; 88360; 92526; 92610; 93005; 94761; 96365; 96366; 96372; 97162; 97166; 97530; 97535; 99291; J2916; P9016; Q9967

== ENCOUNTER → 2023-10-17 15:36 | Outpatient (REF) | payer MEDICARE, SELFPAY ==
[2023-10-17 16:25] LABS: % Basophils 0.5 % (0-2); % Eosinophils 1.5 % (0-6); % Immature Granulocytes 0.9 % (0-0.5); % Neutrophils 84.1 % (42.2-75.2); Absolute Basophils 0.1 10^3/uL (0-0.2); Absolute Eosinophils 0.2 10^3/uL (0-0.7); Absolute Immature Granulocytes 0.1 10^3/uL (0-0.05); Absolute Lymphocytes 0.9 10^3/uL (1.2-3.4); Absolute Neutrophils 12.6 10^3/uL (1.4-6.5); Hematocrit 33.4 % (39.0-52.0); Hemoglobin 10.9 g/dL (13.0-18.0); Mean Corp Hgb Conc. 32.6 g/dL (33.0-37.0); Mean Corpuscular Hgb 26.7 pg (27.0-31.0); Mean Corpuscular Volume 81.9 fL (80.0-94.0); Mean Platelet Volume 9.7 fL (7.4-10.4); Nucleated Red Blood Cells % 0 % (-); Platelet Count 166 10^3/uL (130-400); Red Blood Cell Count 4.08 10^6/uL (4.70-6.10); Red Cell Dist. Width 18.9 % (11.5-14.5); White Blood Cell Count 14.9 10^3/uL (4.8-10.8)
[2023-10-17 16:49] LABS: ALT (SGPT) 57 U/L (0-50); AST (SGOT) 124 U/L (17-59); Albumin 3.5 g/dl (3.5-5.0); Alkaline Phosphatase 357 U/L (38-126); Blood Urea Nitrogen 40 mg/dl (9-20); Calcium 9.3 mg/dl (8.4-10.2); Carbon Dioxide 17 mmol/L (22-30); Chloride 102 mmol/L (98-107); Glucose 105 mg/dl (70-99); Iron 34 ug/dl (49-181); Potassium 4.8 mmol/L (3.5-5.1); Sodium 136 mmol/L (135-145); Total Bilirubin 0.9 mg/dl (0.2-1.3); eGFR 47.06
[2023-10-17 16:58] LABS: Percent Saturation 13 % (20-50); Total Iron Binding Capacity 249 ug/dl (261-462)
[2023-10-17 17:58] LABS: CEA 974 ng/ml
== END ==
LOC: REG 15:36
PROVIDERS: ATTENDING PHYSICIAN Internal Medicine Hematology & Oncology; FAMILY PHYSICIAN Internal Medicine
DX: C15.5 Malignant neoplasm of lower third of esophagus (principal); C78.7 Secondary malignant neoplasm of liver and intrahepatic bile duct
CPT/HCPCS: 36415; 80053; 82378; 82728; 83540; 83550; 85025

== ENCOUNTER 2023-10-21 18:55 | Inpatient (IN) | payer MEDICARE, SELFPAY ==
[2023-10-21] VITALS (17 sets, daily range): BP systolic 100–124; BP diastolic 56–79; BMI 30.3; BMI 28.8
[2023-10-21 15:53] LABS: % Basophils 0.2 % (0-2); % Eosinophils 1.2 % (0-6); % Immature Granulocytes 1.2 % (0-0.5); % Lymphocytes 3.6 % (20.5-51.1); % Monocytes 5.7 % (1.7-9.3); % Neutrophils 88.1 % (42.2-75.2); Absolute Eosinophils 0.2 10^3/uL (0-0.7); Absolute Immature Granulocytes 0.2 10^3/uL (0-0.05); Absolute Lymphocytes 0.5 10^3/uL (1.2-3.4); Absolute Monocytes 0.8 10^3/uL (0.1-0.6); Absolute Neutrophils 12.8 10^3/uL (1.4-6.5); Hematocrit 24.8 % (39.0-52.0); Mean Corp Hgb Conc. 32.3 g/dL (33.0-37.0); Mean Corpuscular Hgb 26.7 pg (27.0-31.0); Mean Corpuscular Volume 82.7 fL (80.0-94.0); Mean Platelet Volume 11.8 fL (7.4-10.4); Nucleated Red Blood Cells % 0.2 % (-); Platelet Count 171 10^3/uL (130-400); Red Cell Dist. Width 19.2 % (11.5-14.5); White Blood Cell Count 14.5 10^3/uL (4.8-10.8)
[2023-10-21 16:06] LABS: ALT (SGPT) 51 U/L (0-50); AST (SGOT) 171 U/L (17-59); Albumin 2.9 g/dl (3.5-5.0); Alkaline Phosphatase 394 U/L (38-126); Blood Urea Nitrogen 53 mg/dl (9-20); Calcium 8.5 mg/dl (8.4-10.2); Carbon Dioxide 19 mmol/L (22-30); Chloride 100 mmol/L (98-107); Estimated Creatinine Clearance 49 ml/min; Glucose 111 mg/dl (70-99); Potassium 4.9 mmol/L (3.5-5.1); Sodium 130 mmol/L (135-145); Total Bilirubin 0.9 mg/dl (0.2-1.3); Total Protein 5.1 g/dl (6.3-8.2); eGFR 47.06
[2023-10-21 16:21] LABS: COVID-19 Antigen Negative (Negative)
--- NOTE | 2023-10-21 17:16 | ED TECH ---
A PERT ALERT was called #[id number]# Per @17:16 PM.
--- NOTE | 2023-10-21 17:37 | ED.GENMED ---
History of Present Illness
General
Chief Complaint: Weakness
Time Seen by Provider: 10/21/23 14:55
History of Present Illness
History of Present Illness:
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 Patient arrives from home, had an aide that noticed that patient was weak.
She checked his vitals, was concern for hypoxia and hypotension. Patient has also been increasingly unsteady, multiple falls, however denies head injury or loss of consciousness. Daughter at bedside reports diagnosis of cancer occurred about a
week ago. He is due to start radiation and chemotherapy. However, has been increasingly weak and fatigued. Patient also notes dyspnea on every night notes that he spits up dark red substance. He has also had lower extremity edema. Denies
associated chest pain. Daughter at bedside notes that patient has been pale, has been transfused in the past. Patient denies blood in the stool. No additional symptoms reported at this time
Phy Exam
Physical Exam
Physical Exam:
General: Pale, no clinical signs of dehydration, no acute distress
HEENT: protecting airway
Neck: appears supple
CV: Normal heart rate, regular rhythm, no evidence of cyanosis
Resp: No accessory muscle use, no increased work of breathing, lungs clear to auscultation bilaterally
Abd: Soft and non-distended, no tenderness to palpation, normal bowel sounds
Extremities: No deformities, no erythema, +2 pitting edema bilaterally
Neuro: alert, no focal neurologic deficit
: deferred
Rectal: deferred
Psych: Normal affect
Skin: Intact
Course
Orders/Labs/Results
Orders:
Orders
10/21/23 15:33
CT Chest Pe Study Urgent
Comment:
Reason For Exam: weakness, SOB, hemoptysis
10/21/23 15:39
Type+Screen Urgent
COVID-19 Antigen Urgent
Source: Nasal Swab
Complete Blood Count/With Diff Urgent
Comprehensive Metabolic Panel Urgent
10/21/23 17:25
Heparin 8,100 units IV NOW STA
Nursing to Place Non Medication Order As Directed
Physician Order: PTT 6 hours after initial start of Heparin infusion
10/21/23 17:30
Heparin 87124 Units/250 ml 25,000 units in 250 ml IV PER PROTOCOL
Weight to be used for heparin protocol in kilograms (kg):: 101.4
Protocol:: DVT/PE
PTT Goal Range to be used:: PTT 73 to 111 seconds
Order type:: Initial
INITIAL Infusion Dose (UNITS/KG/hr) & then follow protocol:: 18 units/kg/hr
Infusion Dose in UNITS/hr & then follow protocol (UNITS/hr):: 1,800
INFUSION RATE in mL/hr & then follow protocol (mL/hr):: 18
For DVT/PE algorithm, re-bolus for low PTT?: Yes
PTT less than or equal to 64 seconds:: Re-bolus 80 units/kg (max 10,000units). Increase by 400 units/hr
(+ 4mL/hr)
PTT 64.1 to 72.9 seconds:: Re-bolus 40 units/kg (max 5,000 units). Increase by 200 units/hr
(+ 2mL/hr)
PTT 73 to 111 seconds:: Target Range. No change in rate.
PTT 111.1 to 130.9 seconds:: Decrease rate by 200 units/hr (- 2 mL/hr)
PTT 131 to 199.9 seconds:: HOLD for 1 hr. Then decrease by 300 units/hr (- 3mL/hr)
PTT greater than or equal to 200 seconds:: HOLD for 2 hrs & Notify Provider. Then decrease by 400 units/hr
(- 4mL/hr)
Lab follow-up:: Each change, PTT q6h until 2 consecutive are therapeutic. Then
PTT daily.
10/21/23 17:33
PTT Urgent
Comment: Obtain baseline before beginning heparin infusion if not already collected
10/21/23 17:35
Heparin 4,100 units IV PRN PRN
Heparin 8,100 units IV PRN PRN
10/21/23 18:[address] See Dose Instructions IV DIRECTED
Abnormal Lab Results
10/21/23
15:39
WBC 14.5 H 10^3/uL
(4.8-10.8)
RBC 3.00 L 10^6/uL
(4.70-6.10)
Hgb 8.0 L D g/dL
(13.0-18.0)
Hct 24.8 L %
(39.0-52.0)
MCH 26.7 L pg
(27.0-31.0)
MCHC 32.3 L g/dL
(33.0-37.0)
RDW 19.2 H %
(11.5-14.5)
MPV 11.8 H fL
(7.4-10.4)
Abs Immat Gran (auto) 0.2 H 10^3/uL
(0-0.05)
Absolute Neuts (auto) 12.8 H 10^3/uL
(1.4-6.5)
Absolute Lymphs (auto) 0.5 L 10^3/uL
(1.2-3.4)
Absolute Monos (auto) 0.8 H 10^3/uL
(0.1-0.6)
Immature Gran % 1.2 H %
(0-0.5)
Neutrophils % 88.1 H %
(42.2-75.2)
Lymphocytes % 3.6 L %
(20.5-51.1)
Sodium 130 L mmol/L
(135-145)
Carbon Dioxide 19 L mmol/L
(22-30)
BUN 53 H mg/dl
(9-20)
Creatinine 1.5 H mg/dL
(0.7-1.3)
Glucose 111 H mg/dl
(70-99)
AST 171 H U/L
(17-59)
ALT 51 H U/L
(0-50)
Alkaline Phosphatase 394 H U/L
(38-126)
Total Protein 5.1 L g/dl
(6.3-8.2)
Albumin 2.9 L g/dl
(3.5-5.0)
10/21/23 15:39
10/21/23 15:39
Vital Signs
Initial and Last Documented VS:
Initial Vital Signs
BP
119/76
10/21/23 14:45
Last Documented Vital Signs
Temp Pulse Resp BP Pulse Ox
98.3 F 81 19 124/71 96
10/21/23 14:48 10/21/23 17:00 10/21/23 17:00 10/21/23 17:00 10/21/23 17:00
MDM/Problems Addressed
MDM/Problems Addressed:
77-year-old male with recent diagnosis of esophageal cancer with metastasis to liver presenting for generalized weakness, fatigue, dyspnea. Vital signs on arrival are normal.
On exam, patient is pale in appearance, however no acute distress. He is slow to speech, appears very fatigued and weak. Overall benign cardiac and pulmonary exam, no increased work of breathing. He does have lower extremity edema bilaterally, no
asymmetry. Suspect that fatigue and weakness could be attributed to new diagnosis of underlying malignancy, however patient is also very pale with history of anemia. Possible symptomatic anemia. Additionally, patient notes that he has been
spitting up a red substance every night. Reported hypoxia prior to arrival. Cannot safely rule out PE. Will obtain CT chest
17:30 - Patient's hemoglobin is at 8, low, however appears to be close to baseline. No current indication for transfusion. Patient with abnormal liver enzymes, suspect secondary to known metastasis. Slight JULIA. CT however shows bilateral PE with
right heart strain. For this reason PERT alert was called. Patient otherwise hemodynamically stable.
17:50 - [employer] did review patient's images, no current indication for thrombectomy. Advising heparin drip. Plan for admission.
admission in room 19, Jeffrey Braun, 77 yo with new diagnosis of esophageal cancer and anemia coming in with weakness and fatigue. Was due to start radiation tomorrow. Aid at home said he was hypoxic prior to arrival. Vitals here normal however. He
looks pale and has new b/l lower extremity edema, but symmetric. Hgb is 8, not far off baseline (has been transfused before). I did a CT chest due to cancer and reports he's been spitting up red at night. CT shows b/l PE with right heat strain. PERT
called but given hemodynamic stability, recommending just heparin right now
*Critical Care Note
Total Time (30-74mins, 75-104mins- exclusive of procedures): 45
comment:
The high probability of a clinically significant, sudden or life threatening deterioration of the respiratory and cardiovascular system(s) required my full and direct attention, intervention and personal management. The aggregate critical care time
was 45 minutes. This time is in addition to time spent performing reported procedures but includes the following:
[x] Data Review and interpretation
[x] Patient assessment and monitoring of vital signs
[x] Documentation
[x] Medication orders and management
ED Attending Note
-
Portions of this chart may have been created with voice recognition software.� Occasional wrong word or��sound alike� substitutions may have occurred due to the inherent limitations of voice recognition software.
Discharge Plan
Departure
Prescriptions:
No Action
anastrozole 1 mg Tablet
1 mg PO TU
clomiphene citrate 50 mg Tablet
25 mg PO DAILY
Patient Comments:
10/03/23: take for 20 days, stop for 10 days, patient is unsure when he started on the current 20 day cycle.
lorazepam 1 mg Tablet
4 mg PO HS
Patient Comments:
10/03/23: last filled 09/20/23 for 150 tablets over 30 days.
zolpidem 10 mg Tablet
10 mg PO HS
Patient Comments:
10/03/23: last filled 09/26/23 for 30 tablets over 30 days
tadalafil 5 mg Tablet
5 mg PO DAILY
sumatriptan succinate 100 mg Tablet
50 - 100 mg PO DAILYPRN PRN (Reason: migraine)
bismuth subsalicylate [Pepto-Bismol] 262 mg/15 mL Suspension
524 mg PO DAILYPRN PRN (Reason: GI issues)
naproxen sodium [Aleve] 220 mg Tablet
880 mg PO DAILYPRN PRN (Reason: headache)
irbesartan 150 mg Tablet
150 mg PO DAILY
testosterone 20.25 mg/1.25 gram (1.62 %) Gel In Metered-Dose Pump
3 pump TOPICAL DAILY
pantoprazole 40 mg Tablet,Delayed Release (Dr/Ec)
40 mg PO BID Qty: 60 0RF
Rx Instructions:
reduce to daily after 1 week
doxycycline hyclate 100 mg Capsule
100 mg PO Q12 5 Days Qty: 10 0RF
chlorpromazine 25 mg Tablet
25 mg PO TIDPRN PRN (Reason: hiccups) Qty: 30 0RF
cefdinir 300 mg Capsule
300 mg PO Q12 5 Days Qty: 10 0RF
Referrals:
Julio Cordova MD [Family Provider] -
Interventions
Interventions:
*Risk Screen - Suicide Last Done: 10/21/23 14:49
*General Assessment Last Done: 10/21/23 14:49
*Neglect/Abuse Screening Last Done: 10/21/23 14:49
ED- Cardiac Assessment Last Done: 10/21/23 15:58
ED- Neurological Assessment Last Done: 10/21/23 15:08
ED- Pulmonary Assessment Last Done: 09/09/24 15:58
Discharge Date and Time
Print Language: COLOMBIAN
[2023-10-21 17:53] LABS: APTT 32.1 Sec (23.4-35.0)
[2023-10-21] MEDS: HEPARIN 8100 UNITS IV (17:53)
[2023-10-21] MEDS: HEPARIN 25000 UNITS/250 ML IV (17:54)
--- NOTE | 2023-10-21 18:10 | HPS.HSE ---
Family Physician
-
Family Physician: Julio Cordova MD
Chief Complaint
-
Shortness of breath, hypoxia, leg edema, constant esophageal bloody regurg in a.m.
History of Present Illness
77-year-old male who presents to the ER complaining of generalized weakness, along with hypoxia and hypotension noted by home health aide. He states he got up today got a shower after his shower he became profoundly weak with increased shortness of
breath from baseline. He has also noticed increased leg edema bilaterally. He is reportedly become increasingly unsteady with multiple falls. 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 He was scheduled
for radiation and chemotherapy tomorrow 10/22/[address] Ian Corbett in [facility] radiation oncology. He denies fever, chills, chest pain, palpitations, abdominal pain, nausea, vomiting, diarrhea, urinary symptoms, dark black or bloody stools,
hematuria.
He had recent admission 10/02 - 10/09/2023 due to dysphagia times several weeks. He had planned eval in endoscopy suite but was profoundly fatigued and pale noted to be anemic with hemoglobin of 6.6. He was transfused with 1 unit PRBC. There is a
suspected distal esophageal mass with hepatic mets, small�moderate right pleural effusion he was also treated for likely aspiration pneumonia secondary to hiccups while eating and leukocytosis was started on cefepime and doxycycline and transition
to oral cefdinir and off supplemental oxygen. He has past medical history of migraines, prostate cancer, HTN, anxiety, dysphagia secondary to distal esophageal mass mets to liver, recent aspiration pneumonia from hiccups, anemia, HTN, anxiety.
Medical History
Past Medical History
Past Medical History: Reports Other
Additional Past Medical History:
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
Anemia
migraines
prostate cancer with cryoablation and hormonal therapy
HTN
anxiety,
recent aspiration pneumonia from hiccups 10/07/2023
HTN
anxiety.
Past Surgical History: Reports Other
Additional Past Surgical History:
Left wrist surgery
Appendectomy
Lipoma of neck removal
Quadricep tendon repair
Prostatectomy
Social History
Tobacco: Non-smoker
Alcohol: Occasional (3 to 4 days a week 1 glass of wine)
Drug: None
Personal: Single
Living: Alone
Family History
Family History: Not pertinent
Allergies / Home Medications
Allergies reflects when Allergies were last updated in [facility].
Home Medications with original date entered in [facility]
Allergy/Medication List:
Allergies
Allergy/AdvReac Type Severity Reaction Status Date / Time
Penicillins Allergy Anaphylaxis Verified 10/21/23 14:47
Home Medications
lorazepam 1 mg tablet 4 mg PO HSPRN PRN anxiety/sleep 08/16/23
naproxen sodium 220 mg tablet (Aleve) 880 mg PO DAILYPRN PRN headache 10/03/23
sumatriptan succinate 100 mg tablet 50 - 100 mg PO DAILYPRN PRN migraine 10/03/23
testosterone 3 pump topical DAILY left arm or stomach 10/03/23
chlorpromazine 25 mg tablet 25 mg PO TIDPRN PRN hiccups #30 tabs 10/09/23
hydrocortisone 1 % topical cream 1 applic topical BIDPRN PRN skin issues 10/21/23
Review of Systems
-
History Source: Patient and Family (Daughter at bedside)
A 12 point ROS was completed and negative except as noted: Yes
Constitutional: Reports Fatigue; Denies Fever or Chills
EENT: Reports Other (In a.m. has bloody liquid on pillow from esophagus he states); Denies Sore Throat or Mouth Swelling
Respiratory: Reports Trouble Breathing (SWANSON); Denies Cough
Cardiac: Denies Chest Pain, Diaphoresis, Palpitations or Syncope
Abdomen/GI: Denies Abdominal Pain, Nausea, Vomiting, Diarrhea, Constipated, Bloody Stools or Black Stools
: Denies Dysuria, Frequency, Flank Pain, Incontinence, Difficulty Voiding or Urgency
Musculoskeletal: Reports Edema (+3 bilateral lower legs); Denies Joint Pain or Muscle Pain
Skin: Denies Itching or Rash
Neurological: Reports Weakness (Generalized); Denies Dizzy or Headache
Hematologic/Lymphatic: Reports No Symptoms
Psych: Reports Calm
Physical Exam
Vital Signs
Vital Signs
Temp Pulse Resp BP Pulse Ox
98.3 F 81 19 124/71 96
10/21/23 14:48 10/21/23 17:00 10/21/23 17:00 10/21/23 17:00 10/21/23 17:00
Physical Exam
General: Comfortable, Pain and Obese; No Fever or Chills
HEENT: NormoCephalic, Anicteric, Moist mucous membranes, PERRLA and No Ptosis
Respiratory: Decreased Breath Sounds (Bilateral); No Wheezes or Rales
Cardiac: S1/S2, Regular Rhythm, Murmur (2/6 systolic murmur) and Peripheral Edema (+3 bilateral lower legs); No Rub or Gallop
Breast: Deferred by me
GI: Soft, Non Tender, Non Distended and No Hepatosplenomegaly
Rectal: Deferred by Provider
Genito-urinary: Deferred by me
Musculoskeletal: No Clubbing, No Cyanosis, Edema, Left Lower Extremity (+3) and Edema, Right Lower Extremity (+3); No Edema, Left Upper Extremity or Edema, Right Upper Extremity
Skin: Warm and Dry; No Rash
Neuro: AO x 3, No Motor Deficits, Nonfocal/grossly intact and No Sensory Deficits; No Slurred Speech, Facial Droop, Tremors or Sedated
Psych: Calm
Laboratory Results
-
10/21/23 15:39
10/21/23 15:39
Laboratory Results
APTT 32.1 Sec (23.4-35.0) 10/21/23 17:33
Total Bilirubin 0.9 mg/dl (0.2-1.3) 10/21/23 15:39
AST 171 U/L (17-59) H 10/21/23 15:39
ALT 51 U/L (0-50) H 10/21/23 15:39
Alkaline Phosphatase 394 U/L (38-126) H 10/21/23 15:39
Impression/Plan
-
Impression/plan:
Admit to ICU
#Acute hypoxic resp insufficiency secondary to Bilateral pulmonary emboli with right heart strain
#Acute CHF with bilateral leg +3 edema
-PERT alert was called and was recommended IV Heparin at present time
-Consult Plant Tour Guide
-Consult Pulmonary
-Consult Cardiology
-Venous Doppler bilateral legs
-2D echo
-IV Lasix 40 mg now
-I/O, daily weight
CT PE study:
1. Extensive bilateral pulmonary emboli with CT evidence for right heart strain.
2. Small left and moderate right pleural effusions, progressed.
3. Findings suggesting mild diffuse pulmonary interstitial edema, new from prior.
4. Re demonstration of distal esophageal neoplasm and extensive hepatic metastases, progressed.
5. 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
#Small left and moderate right pleural effusion
Consult IR for thoracentesis right sided
#Recent aspiration pneumonia from hiccups
Treated with cefepime, Doxy transition to oral cefdinir 10/02 - 10/09/2023
#Esophageal CA with metastases to liver new Dx September 2023
#dysphagia secondary to distal esophageal mass mets to liver
Was due for radiation tomorrow 10/22/[address] Ian Corbett in [facility]
-Consult Oncology
-IV Protonix 40 mg twice daily
EGD 10/04/2023 partially obstructing malignant esophageal tumor found in the lower third of the esophagus which was biopsied
#Worsening anemia
Hgb 8 <10.9 on 10/17/2023-denies black or bloody stools
Reports occasional blood on his pillow he reports regurgitates from his esophagus
Patient had transfusion 1 unit PRBC for Hgb of 6.6 on 10/07/2023
-type and screen, transfuse 1 unit PRBC
PLT 171
#JULIA on CKD
Creat 1.5/bun 53 from prior ..2
-Hold on fluids due to current volume overload
-Monitor BMP given need for IV Lasix
#HTN�benign
BP 124/71
-Continue irbesartan hold for BP parameters
#Anxiety
-Patient takes 4 mg of Ativan at night will decrease to 2 mg
Other PMH:
Migraines -as needed Imitrex 50-100 mg
Prostate cancer-patient on anastrozole 1 mg p.o. Tuesdays, clomiphene citrate 25 mg daily
DVT prophylaxis
IV heparin drip due to current bilateral pulmonary embolisms
DNR per patient with daughter at bedside
--- NOTE | 2023-10-21 18:22 | CON.PUL ---
Consultation
Consultation Request
Date/Time Consultation Requested: 10/21/2023 - 1716
Date/Time Consultation Performed: 10/21/2023 - 1724
Requesting Provider: Dr. Hathaway
Performing Provider: Dr. Johnson
Reason for Consultation: PERT Alert
Medical History
-
Chief Complaint: Weakness
History of Present Illness:
77-year-old male with a past medical history of aspiration pneumonia, prostate cancer s/p prostatectomy, hypertension, anemia of chronic disease and recently diagnosed distal esophageal adenocarcinoma who presents from home with worsening weakness
for about a month. He was recent diagnosed with esophageal cancer via EGD on 10/04/2023. Imaging also showed suspected left liver mets. He was scheduled for radiation + chemotherapy tomorrow. Initial vitals in the ER showed he was afebrile to
98.3 �F, pulse rate 79, breathing at 19 breaths minute, BP 119/76 and saturating 92% on room air. Labs showed leukocytosis to 14.5, anemia to 8, serum sodium 130, creatinine 1.5, elevated LFTs and COVID antigen negative. CTA chest showed extensive
bilateral pulmonary emboli with right heart strain and bilateral pleural effusions. PERT alert called, heparin drip started. Pulmonary service consulted for additional management/recommendations.
When I saw the patient, he was resting in bed, daughter, Nicole, at bedside. Pt on room air and breathing comfortably. Patient saturating 96%, heart rate 90, BP 119/69 and breathing 20 breaths minute. He denies any chest pain, shortness of
breath, abdominal pain, fevers or chills.
PMHx: History of aspiration pneumonia, prostate cancer s/p prostatectomy, hypertension, anxiety, migraines, recently diagnosed distal esophageal adenocarcinoma with suspected liver mets, anemia of chronic disease
PSHx: Left wrist surgery, appendectomy, lipoma of neck removal, quadricep tendon repair, prostatectomy
Past Medical History
Past Medical History: Other (Above as per HPI)
Past Surgical History: Other (Above as per HPI)
Social History
Tobacco: Non-smoker
Alcohol: None
Drug: None
Family History
Family History: CAD (Father) and Other (Valve replacement: Father)
Allergies / Home Medications
Allergies
Allergy/AdvReac Type Severity Reaction Status Date / Time
Penicillins Allergy Anaphylaxis Verified 10/21/23 14:47
Home Medications
�Medication �Instructions �Recorded �Confirmed �Last Taken �Type
lorazepam 1 mg tablet 4 mg PO HSPRN PRN anxiety/sleep 08/16/23 10/21/23 08/15/23 22:00 History
naproxen sodium 220 mg tablet 880 mg PO DAILYPRN PRN headache 10/03/23 10/21/23 1 Week Ago History
(Aleve) ~09/26/23
sumatriptan succinate 100 mg tablet 50 - 100 mg PO DAILYPRN PRN 10/03/23 10/21/23 Unknown History
migraine
testosterone 3 pump topical DAILY left arm or 10/03/23 10/21/23 Unknown History
stomach
chlorpromazine 25 mg tablet 25 mg PO TIDPRN PRN hiccups #30 10/09/23 10/21/23 Unknown Rx
tabs
hydrocortisone 1 % topical cream 1 applic topical BIDPRN PRN skin 10/21/23 10/21/23 Unknown History
issues
Review of Systems
-
History Source: Patient
All other systems: Negative unless noted
Vitals / Labs / Diagnostic Testing
Vital Signs
Temp Pulse Resp BP Pulse Ox
98.3 F 81 19 124/71 96
10/21/23 14:48 10/21/23 17:00 10/21/23 17:00 10/21/23 17:00 10/21/23 17:00
Lab Data
10/21/23 15:39
10/21/23 15:39
Laboratory Results
10/21/23
17:33
APTT 32.1
Diagnostic Testing:
Physical Exam
-
HEENT: Normocephalic and Anicteric
Cardiovascular: S1/S2 and Peripheral Edema (+2 lower extremity pitting edema bilaterally)
Respiratory: Wheeze (negative), Rales (Bilateral), Rhonchi (negative) and Non-Labored Respirations
GI: Soft, Non Distended, Non Tender and Normal Bowel Sounds
Neurology: Awake, Alert and Tremors (negative)
Skin: Warm and Dry
General: Respiratory Distress (negative), Comfortable, Chills (negative) and Sweats (negative)
Assessment
-
Assessment: 77-year-old male with a past medical history of aspiration pneumonia, prostate cancer s/p prostatectomy, hypertension, anemia of chronic disease and recently diagnosed distal esophageal adenocarcinoma who presents from home with
worsening weakness for about a month. He was recent diagnosed with esophageal cancer via EGD on 10/04/2023. Imaging also showed suspected left liver mets. He was scheduled for radiation + chemotherapy tomorrow. Initial vitals in the ER showed he
was afebrile to 98.3 �F, pulse rate 79, breathing at 19 breaths minute, BP 119/76 and saturating 92% on room air. Labs showed leukocytosis to 14.5, anemia to 8, serum sodium 130, creatinine 1.5, elevated LFTs and COVID antigen negative. CTA chest
showed extensive bilateral pulmonary emboli with right heart strain and bilateral pleural effusions. PERT alert called, heparin drip started. Pulmonary service consulted for additional management/recommendations.
Chronic conditions CRITICAL CARE SPECIALIST: History of aspiration pneumonia, prostate cancer s/p prostatectomy, hypertension, anxiety, migraines, recently diagnosed distal esophageal adenocarcinoma with suspected liver mets, anemia of chronic disease
Impression:
#Submassive bilateral PE with RV strain, likely provoked from known distal esophageal invasive adenocarcinoma
#Leukocytosis � likely reactive
#Bilateral pleural effusions (R>L) worsened compared to prior CT chest on 10/03/2023, suspicious for acute decompensated heart failure vs malignant effusions (likely the former)
#Anemia
#Hyponatremia (mild)
#Acute kidney injury (baseline Cr ~1.1)
#Transaminitis likely due to metastatic disease
#Invasive poorly differentiated adenocarcinoma, via biopsy in distal esophagus from EGD on 10/04/2023
Plan:
- Start systemic parenteral anticoagulation
- No need for catheter directed thrombolysis or thrombectomy given his pulmonary artery is <30 and he is hemodynamically stable and on room air saturating 96-97%
- Hold diuresis given JULIA --> diurese once Cr improves
- Recommend IR consult for R-sided thoracentesis to send for cytopathology, cultures, glucose, protein, LDH, and cell count with differential
- Re-check CXR in 24-48 hrs to re-assess degree of pleural effusions
- Check TTE to assess R-sided pressures
- Check LE duplex
- Maintain SpO2 >90-94% with supplemental O2 as needed
- Incentive spirometer encouraged
- Replete electrolytes with K>4, Mg>2
- Maintain euglycemia with goal BG >100 and <180
- Eventual systemic treatment for his esophageal cancer
- prn nebulized bronchodilators
- DVT ppx
Manual Arts Teacher/Pulmonary service will continue to follow along.
Total time spent today was 75 minutes for this encounter. Time includes reviewing laboratory test/imaging results, reviewing pertinent medical records, obtaining and reviewing medical history, performing an appropriate exam, ordering medications,
tests and procedures. Time also includes documentation of this encounter, coordinating patient care and communicating with other healthcare professionals. Total time does not include separately billed tests performed on this date of service.
Data:
CTA Chest 10/21/2023:
1. Extensive bilateral pulmonary emboli with CT evidence for right heart strain.
2. Small left and moderate right pleural effusions, progressed.
3. Findings suggesting mild diffuse pulmonary interstitial edema, new from prior.
4. Redemonstration of distal esophageal neoplasm and extensive hepatic metastases, progressed.
5. 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
[2023-10-21] MEDS: LASIX 40 MG IV (19:51)
--- NOTE | 2023-10-21 20:32 | W.PN.UPDATE ---
Update Note
Progress Note Update
Bilateral lower extremity Doppler showing bilateral lower extremity DVTs per radiology
-Patient currently on IV heparin drip secondary to bilateral pulmonary embolism
[2023-10-21] MEDS: ATIVAN 0.5 MG PO (23:20)
[2023-10-22] VITALS (33 sets, daily range): BP systolic 96–131; BP diastolic 57–88; BMI 29.1
--- NOTE | 2023-10-22 00:22 | PTCARENOTE ---
Received pt from ER,alert oriented,tolerated transfer well.Pts VS stable afebrile,AFIB auto appraiser.Skin warm dry pale,pt denies pain.Heparin GTT maintained via RAC. Pt voiding straw colored urine.Pt turns for assessment,calls for nurse
appropriately.Close observation ongoing throughout the night.
[2023-10-22 01:23] LABS: INR 1.59; PT 18.8 Sec (11.4-14.6)
[2023-10-22 01:38] LABS: APTT 160.9 Sec (23.4-35.0)
[2023-10-22] MEDS: ATIVAN 2 MG PO (03:21)
--- NOTE | 2023-10-22 05:00 | PTCARENOTE ---
Pt awake all night,states he always takes Ativan 4mg po and Ambien 10 mg at bedtime.Pt remains stable,AFIB,Hr 80s,no resp distress O2 sat 95% room air.
[2023-10-22 05:50] LABS: % Basophils 0.4 % (0-2); % Immature Granulocytes 1.8 % (0-0.5); % Lymphocytes 4.9 % (20.5-51.1); % Monocytes 6.1 % (1.7-9.3); % Neutrophils 84.8 % (42.2-75.2); Absolute Basophils 0.1 10^3/uL (0-0.2); Absolute Eosinophils 0.3 10^3/uL (0-0.7); Absolute Immature Granulocytes 0.3 10^3/uL (0-0.05); Absolute Lymphocytes 0.8 10^3/uL (1.2-3.4); Absolute Neutrophils 14.4 10^3/uL (1.4-6.5); Hematocrit 22.8 % (39.0-52.0); Hemoglobin 7.6 g/dL (13.0-18.0); Mean Corp Hgb Conc. 33.3 g/dL (33.0-37.0); Mean Corpuscular Hgb 26.5 pg (27.0-31.0); Mean Corpuscular Volume 79.4 fL (80.0-94.0); Mean Platelet Volume 10.5 fL (7.4-10.4); Nucleated Red Blood Cells % 0.4 % (-); Platelet Count 190 10^3/uL (130-400); Red Blood Cell Count 2.87 10^6/uL (4.70-6.10); Red Cell Dist. Width 18.5 % (11.5-14.5); White Blood Cell Count 16.9 10^3/uL (4.8-10.8)
[2023-10-22 06:18] LABS: ALT (SGPT) 54 U/L (0-50); AST (SGOT) 182 U/L (17-59); Albumin 2.5 g/dl (3.5-5.0); Alkaline Phosphatase 511 U/L (38-126); Blood Urea Nitrogen 61 mg/dl (9-20); Calcium 8.4 mg/dl (8.4-10.2); Carbon Dioxide 19 mmol/L (22-30); Chloride 101 mmol/L (98-107); Estimated Creatinine Clearance 51 ml/min; Glucose 104 mg/dl (70-99); Potassium 4.4 mmol/L (3.5-5.1); Sodium 131 mmol/L (135-145); Total Bilirubin 1.1 mg/dl (0.2-1.3); Total Protein 4.7 g/dl (6.3-8.2); eGFR 55.88
--- NOTE | 2023-10-22 08:06 | W.PN.INTV ---
Addendum entered and electronically signed by Travis Johnson MD 10/22/23 17:14:
Of note, patient given 1 unit PRBC overnight with Hb dropping from 8-7.6 s/p transfusion. Patient is clinically not bleeding. No abdominal pain, and no tarry stools reported. No nosebleeds and no bloody urine either. Patient does have a history
of iron deficiency anemia and I also suspect that he has anemia of chronic disease given his recently diagnosed esophageal cancer. I will trend his CBC and assuming that Hb is stable, then I will continue to downgrade. If Hb is unstable and
continuing to decline then will continue to monitor overnight in the ICU. I will also order iron supplementation.
Original Note:
Today's Communication / Plan
Recommendations
Heparin drip x 48 hrs before transitioning to NOAC
Preferably start Eliquis tomorrow; case management consult to check affordability
Bedrest until tomorrow, at which point he can then get up out of bed as tolerated
CPAP with sleep (patient's family will bring in his own unit)
Goal SpO2 >90-94%
Diurese as tolerated - cardiology on board
IR consult for R-sided thora
Stable for transfer out of ICU to telemetry - Pulmonary service will briefly follow along. Outpatient follow-up will also be arranged for KWAN and given his acute PE. Repeat TTE should be done in ~4-6 weeks for his pHTN.
Assessment
-
Assessment: 77-year-old male with a past medical history of aspiration pneumonia, prostate cancer s/p prostatectomy, hypertension, anemia of chronic disease and recently diagnosed distal esophageal adenocarcinoma who presents from home with
worsening weakness for about a month. He was recent diagnosed with esophageal cancer via EGD on 10/04/2023. Imaging also showed suspected left liver mets. He was scheduled for radiation + chemotherapy tomorrow. Initial vitals in the ER showed he
was afebrile to 98.3 �F, pulse rate 79, breathing at 19 breaths minute, BP 119/76 and saturating 92% on room air. Labs showed leukocytosis to 14.5, anemia to 8, serum sodium 130, creatinine 1.5, elevated LFTs and COVID antigen negative. CTA chest
showed extensive bilateral pulmonary emboli with right heart strain and bilateral pleural effusions. PERT alert called, heparin drip started. Pulmonary service consulted for additional management/recommendations.
Chronic conditions IMPORT/EXPORT AGENT: History of aspiration pneumonia, prostate cancer s/p prostatectomy, hypertension, anxiety, migraines, recently diagnosed distal esophageal adenocarcinoma with suspected liver mets, anemia of chronic disease
Impression:
#Submassive bilateral PE with RV strain, likely provoked from known distal esophageal invasive adenocarcinoma
#Pulmonary HTN - mainly from left heart disease and KWAN in setting of acute PE
#Leukocytosis � likely reactive
#Bilateral pleural effusions (R>L) worsened compared to prior CT chest on 10/03/2023, suspicious for acute decompensated heart failure vs malignant effusions (likely the former)
#Anemia
#Hyponatremia (mild)
#Acute kidney injury (baseline Cr ~1.1) - improving
#Transaminitis likely due to metastatic disease
#Invasive poorly differentiated adenocarcinoma, via biopsy in distal esophagus from EGD on 10/04/2023
#KWAN on CPAP
Plan:
- Continue systemic parenteral anticoagulation with heparin gtt
- Would continue heparin gtt x 48 hrs prior to transitioning to NOAC
- No need for catheter directed thrombolysis or thrombectomy given his pulmonary artery is <30mm and he is hemodynamically stable and on room air saturating 96-97%
- JULIA improved, pro-BNP elevated at 2059--> diurese with lasix 40mg IV daily 2 days, adjusting as needed based on BP, sCr trend and physical exam
- IR consulted for R-sided thoracentesis to send for cytopathology, cultures, glucose, protein, LDH, and cell count with differential
- Re-check CXR in 24-48 hrs to re-assess degree of pleural effusions
- Check TTE to assess R-sided pressures -moderate pulmonary hypertension seen with PASP 55 to 60 mmHg assuming an RAP of 3 mmHg. Mild TR. Normal RA size with normal RV size/function. LVEF is preserved at 55-60% with no regional WMA.
- Recommend repeating TTE in about 4-6 weeks
- Check LE duplex -> bilateral LE DVT seen involving common femoral veins + left femoral vein, as well as occlusive thrombus in the right femoral vein, bilateral popliteal veins and right PT vein
- Maintain SpO2 >90-94% with supplemental O2 as needed
- Incentive spirometer encouraged 10x/hr for at least 4 hrs a day
- Patient uses CPAP for sleep apnea. His family will bring in his own machine and he will use this tonight.
- Replete electrolytes with K>4, Mg>2
- Trend LFTs
- Maintain euglycemia with goal BG >100 and <180
- Eventual systemic treatment for his esophageal cancer - Oncology consulted; recs appreciated
- prn nebulized bronchodilators
- DVT ppx
Patient is stable for downgrade out of ICU to telemetry. Pulmonary service will continue to briefly follow along. Outpatient follow-up will be arranged to assure he continues to improve symptomatically after his acute PE, as well as to manage his
CPAP.
Total time spent today was 50 minutes for this encounter. Time includes reviewing laboratory test/imaging results, reviewing pertinent medical records, obtaining and reviewing medical history, performing an appropriate exam, ordering medications,
tests and procedures. Time also includes documentation of this encounter, coordinating patient care and communicating with other healthcare professionals. Total time does not include separately billed tests performed on this date of service.
Data:
CTA Chest 10/21/2023:
1. Extensive bilateral pulmonary emboli with CT evidence for right heart strain.
2. Small left and moderate right pleural effusions, progressed.
3. Findings suggesting mild diffuse pulmonary interstitial edema, new from prior.
4. Redemonstration of distal esophageal neoplasm and extensive hepatic metastases, progressed.
5. 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
CXR 10/22/2023:
Evidence for a small to moderate right pleural effusion.
Focal patchy parenchymal opacity in the medial right lower lung, with main differential considerations of atelectasis and/or pneumonia.
Subtle diffuse increased interstitial and small nodular opacities with subtle peribronchial thickening. Main differential considerations of interstitial edema and interstitial-type pneumonia with bronchitis/bronchiolitis.
LE Duplex - 10/21/2023: Bilateral lower extremity DVT
TTE 10/22/2023:
Normal left ventricular size and systolic function. No regional wall motion
abnormalities are seen. LV ejection fraction is 55-60% by Nunez's method of
discs. Mild concentric left ventricular hypertrophy.
Mild tricuspid regurgitation. Estimated pulmonary artery pressure of 55-60
mmHg.
No prior study available for comparison.
Subjective Dataa
Subjective Data
Date of Service:
Date of Service: October 22, 2023
Chief Complaint: Director Of Counseling Follow Up
Subjective:
Patient seen and evaluated this morning. No events reported from overnight. Heart rate 86, BP 111/68, saturating 93% on room air. She wants to get up out of bed. Also wants to have something to eat. He currently denies chest pain, headache,
abdominal pain, SOB, nausea, fevers or chills.
Review of Systems
General: Other (Negative unless mentioned above)
Objective Data
Data Reviewed
Vital Signs / I&O / Oxygen:
Vital Signs
Temp Pulse Resp BP Pulse Ox
98.3 F 87 27 119/67 93
10/22/23 08:09 10/22/23 06:00 10/22/23 06:00 10/22/23 06:00 10/22/23 08:58
Intake and Output
10/21/23 10/22/23 10/23/23
06:59 06:59 06:59
Intake Total 424 / 439 45 / 45
Output Total 200 / 200
Balance 224 / 239 45 / 45
SaO2 93
Physical Exam
General: Respiratory Distress (negative), Comfortable, Chills (negative) and Sweats (negative)
HEENT: Normocephalic and Anicteric
Cardiovascular: S1-S2 and Peripheral Edema (+2 lower extremity pitting edema)
Respiratory: Clear, Wheeze (negative), Crackles (negative), Rhonchi (negative) and Non-Labored Respirations
GI: Soft, Non Distended, Non Tender and Normal Bowel Sounds
Neurology: Awake, Alert and Tremors (negative)
Skin: Warm, Dry, Cyanosis (negative) and Jaundice (negative)
Labs/Micro/Reports
Lab Data
10/22/23 05:32
10/22/23 05:32
Laboratory Results
10/21/23 10/22/23
17:33 01:02
PT 18.8 H
INR 1.59
APTT 32.1 160.9 H*
--- NOTE | 2023-10-22 08:17 | VNURNOTE ---
Chart reviewed. Patient is current with [facility] nursing, PT, OT, ESCAPEMENT MATCHER. Received message from [facility] primary RN Shagufta Rascon that family has concerns that patient unable to use stairs in his apt, they are considering moving him into daughter's home in [place]. He
has had several falls recently at home. Would also like info on rehab or hospice. [facility] notified. Will continue to follow hospital course and DC plans.
--- NOTE | 2023-10-22 08:34 | CON.CAR ---
Addendum entered and electronically signed by Dago Cormier MD 10/22/23 10:50:
I saw and examined the patient.
The NUCLEAR WEAPONS MECHANICAL SPECIALIST or PA's note was reviewed and I agree with the note.
Comment: General: Well developed, well nourished in NAD.
Neck: Supple, no JVD, HJR, carotids +2 B/L, no bruits bilaterally.
Heart: Non displaced PMI, RRR, 2/6 apical systolic murmur, No S3, S4, no rubs.
Lungs: Scattered rhonchi
Extremities: No clubbing, cyanosis or edema bilaterally.
Neuro: Grossly nonfocal, awake, alert and oriented x3.
Kade has a history of metastatic esophageal cancer to liver, hypertension, anemia. He was to start chemotherapy for esophageal cancer. He was noted to be weak by visiting nurse and was sent to the ER. CAT scan revealed extensive bilateral pulm
embolism with evidence of right heart strain with small left and moderate right pleural effusion and diffuse pulmonary interstitial edema. Also lower extremity ultrasound revealed bilateral DVTs. Troponin times without complaints. Cardiology is
consulted for CHF
Pulmonary echocardiogram with small LVOT gradient and normal ejection fraction. Will check official report. Will check proBNP. Will consider IV Lasix based on results of chest x-ray. Suspect most of symptoms are due to pulmonary embolism.
Original Note:
Consultation
Consultation Request
Date/Time Consultation Requested: 10/22/23
Date/Time Consultation Performed: 10/22/23 0830
Requesting Provider: MARJORIE Mclean
Performing Provider: MARJORIE Matos for Dago Cormier MD
Reason for Consultation: new HF, B/L PE, new murmur
Medical History
-
Chief Complaint: weakness
History of Present Illness:
77-year-old male with history of hypertension, recent diagnosis of esophageal cancer with hepatic mets, anemia of chronic disease, prostate cancer status post prostatectomy, migraines, anxiety who presented to the ED on 10/21/2023 with weakness,
progressive shortness of breath, and increasing lower extremity edema. He was seen by his visiting nurse and there were concerns of weakness and EMS was called. CT chest showed extensive bilateral pulmonary emboli with evidence of right heart
strain with small left and moderate right pleural effusions and diffuse pulmonary interstitial edema. Lower extremity vascular ultrasound showed bilateral lower extremity DVTs. He was started on a heparin drip, rec'd one dose of Lasix 40 mg IV,
and 1 unit of blood for hemoglobin 8, down from 10.9 on 10/17/23. IR has been consulted for thoracentesis.
He is due to start radiation and chemotherapy tomorrow.
He had a previous hospitalization 10/03/2023 to 10/09/2023 for severe anemia, aspiration pneumonia, and acute hypoxia. He had acute kidney injury, hyperkalemia, metabolic acidosis thought to be due to dehydration. He was treated on IV antibiotics
and supplemental oxygen as well as 3 units of packed red blood cells. Creatinine trended down to 1.5, his home irbesartan was held but resumed on discharge.
Endoscopy during the admission showed poorly differentiated adenocarcinoma.
He denies history of [place], CAD, arrhythmias, heart failure, valvular disorders.
Past medical history:
Hypertension
Aspiration pneumonia
Distal esophageal adenocarcinoma with liver mets diagnosed 10/04/2023
Prostate cancer status post prostatectomy
Anemia of chronic disease
Migraines
Anxiety
Acute kidney injury 10/04
Temporal arteritis status post bilateral biopsy 08/16/2023
Past Medical History
Past Medical History: Other (As above)
Past Surgical History: Other (Left wrist surgery, appendectomy, lipoma of neck excision, quadriceps tendon repair, prostatectomy)
Social History
Tobacco: Non-Smoker
Alcohol: Occasional (1 to 2 glasses of wine a day, stopped approximately 1 month ago)
Living: Alone
Family History
Family History: Other (Father with history of CAD and valve replacement)
Allergies / Home Medications
Allergy/AdvReac Type Severity Reaction Status Date / Time
Penicillins Allergy See Verified 10/21/23 20:20
comments -
pt
tolerates
cefdinir
�Medication �Instructions �Recorded �Confirmed �Type
lorazepam 1 mg tablet 4 mg PO HSPRN PRN anxiety/sleep 08/16/23 10/21/23 History
naproxen sodium 220 mg tablet 880 mg PO DAILYPRN PRN headache 10/03/23 10/21/23 History
(Aleve)
sumatriptan succinate 100 mg tablet 50 - 100 mg PO DAILYPRN PRN 10/03/23 10/21/23 History
migraine
testosterone 3 pump topical DAILY left arm or 10/03/23 10/21/23 History
stomach
chlorpromazine 25 mg tablet 25 mg PO TIDPRN PRN hiccups #30 10/09/23 10/21/23 Rx
tabs
hydrocortisone 1 % topical cream 1 applic topical BIDPRN PRN skin 10/21/23 10/21/23 History
issues
Review of Systems
-
History Source: Patient
All other systems: Negative unless noted
Physical Exam
Vital Signs
Temp Pulse Resp BP Pulse Ox
98.3 F 87 27 119/67 95
10/22/23 08:09 10/22/23 06:00 10/22/23 06:00 10/22/23 06:00 10/22/23 06:00
Lab Results
10/22/23 05:32
10/22/23 05:32
GEN: No distress, awake, pale, Ox3
HEENT: supple, anicteric, mmm
LUNGS: CTA, no wheezes/rales
CV: Reg, S1/S2, 2/6 systolic murmur
ABD: soft, BS+, NT/ND
EXT: RLE 1+ edema, LLE trace edema
NEURO: Gross non-focal
SKIN: No rash
Impression / Plan
-
PCP: Fabián Alpa
Impression:
Shortness of breath
Bilateral pulmonary emboli
Bilateral DVT
Bilateral pleural effusions, concern for acute decompensated heart failure
Anemia, received 1 unit PRBCs 10/21/2023
Hypertension
Esophageal adenocarcinoma with liver metastases
Acute kidney injury, creatinine 1.5 10/21/2023, 1.3 10/22/2023
Elevated LFTs
Temporal arteritis status post bilateral biopsy 08/16/2023
Hyponatremia
Cardiovascular studies:
EKG 10/21/2023: Normal sinus rhythm with first-degree AV block, VA interval 324 ms
Plan:
--Continue Heparin for PE/DVTs, eventual transition to oral anticoagulation
-CXR showed B/L pleural effusions. Received 1 dose of Lasix 40 mg IV. Given lower BP, and normal O2 sats off O2, will wait for results of CXR done this morning before advising on further dosing.
-Check BNP
-Echo already performed today, results pending
-Telemetry personally reviewed showed normal sinus rhythm with first-degree AV block and PACs. Continue monitoring
-Blood pressure low normal off his usual ARB (irbesartan). Would hold for now.
-If echo shows LV/RV dysfunction would resume ARB and consider other GDMT. Given prolonged first-degree AV block on EKG, may not be a candidate for beta-joel or would use very low-dose.
-Check daily weights, preferably with standing scale
-Check I&O
-oncology consult for plan for esophageal cancer treatment
-daily BMPs
Data Reviewed
-
EKG: Tracing Personally Visualized and interpreted
Labs: Labs Reviewed by me
--- NOTE | 2023-10-22 08:59 | PTCARENOTE ---
pt aaox3. states no pain. room air breath sounds diminished. heparin gtt running as ordered.
[2023-10-22 09:26] LABS: APTT 95.3 Sec (23.4-35.0)
[2023-10-22] MEDS: HEPARIN 25000 UNITS/250 ML IV (09:36)
--- NOTE | 2023-10-22 10:34 | CON.ONC ---
Impression
Impression
Extensive bilateral pulmonary embolism and bilateral lower extremity DVTs
Metastatic esophageal cancer, recently diagnosed with near obstructing esophageal primary mass and liver metastases
Anemia, ferritin >100
Chronic testosterone use
Plan
Plan
Extensive pulmonary emboli and DVT likely provoked by testosterone use and hypercoagulability of malignancy
I recommended he stop testosterone use
Agree with heparin, could transition to Eliquis when able
Monitor for bleeding. Iron studies suggest adequate iron stores with ferritin greater than 100
Would transfuse packed red blood cells as clinically indicated
Palliative radiation for near obstructing esophageal primary mass to be rescheduled at the time of discharge
Palliative chemotherapy with FOLFOX to follow radiation
We will follow along
Patient History
History of Present Illness
This is a 77-year-old man who presented to the emergency room yesterday with increasing shortness of breath and leg swelling. He was found to have extensive bilateral pulmonary emboli with CT evidence for right heart strain, small left and moderate
right pleural effusions with progression from prior, distal esophageal neoplasm and extensive hepatic metastases, which have progressed as compared to imaging from October 03, 2023. Lower extremity Doppler ultrasounds showed bilateral lower
extremity DVTs. He was started on heparin and admitted to the ICU.
Medical history is noted for recently diagnosed metastatic esophageal cancer. He was scheduled to begin outpatient radiation therapy today for palliation in the setting of a nearly obstructing esophageal primary. He has been tolerating a soft and
pur�ed diet secondary to difficulty swallowing. He is known to Dr. Day, with plans to start FOLFOX chemotherapy after completing radiation.
He has a history of prostate cancer 15 years ago, was on testosterone supplementation at that time. He has been back on testosterone for the past few years, 3 pumps daily. He denies any personal history of prior blood clots. He does not report
any bleeding.
CBC today is noted for hemoglobin of 7.6, iron studies are consistent with anemia of chronic disease with ferritin above 100. Creatinine is 1.3.
Past-Medical/Surgical History
Past medical and surgical history is as per the HPI, also includes GERD, hypertension, migraine headaches, anxiety, anemia, cataracts, depression and glaucoma. He has history of prostatectomy and appendectomy.
Social history: Never smoker, was drinking alcohol 3 drinks weekly prior to his diagnosis. He is retired, he is
Family history: His mother had breast cancer.
Patient Medication
�Medication �Instructions �Recorded �Confirmed �Last Taken �Type
lorazepam 1 mg tablet 4 mg PO HSPRN PRN anxiety/sleep 08/16/23 10/21/23 08/15/23 22:00 History
naproxen sodium 220 mg tablet 880 mg PO DAILYPRN PRN headache 10/03/23 10/21/23 1 Week Ago History
(Aleve) ~09/26/23
sumatriptan succinate 100 mg tablet 50 - 100 mg PO DAILYPRN PRN 10/03/23 10/21/23 Unknown History
migraine
testosterone 3 pump topical DAILY left arm or 10/03/23 10/21/23 Unknown History
stomach
chlorpromazine 25 mg tablet 25 mg PO TIDPRN PRN hiccups #30 10/09/23 10/21/23 Unknown Rx
tabs
hydrocortisone 1 % topical cream 1 applic topical BIDPRN PRN skin 10/21/23 10/21/23 Unknown History
issues
Active Medications
Generic Name Dose Route Start Last Admin
Trade Name Freq PRN Reason Stop Dose Admin
Acetaminophen 650 mg 10/21/23 22:42
Acetaminophen 325 Mg Tablet PO 11/18/23 22:41
Q4HPRN PRN
mild pain/AGUILAR/temp> 100.4F
Chlorpromazine HCl 25 mg 10/21/23 22:42
Chlorpromazine 25 Mg Tablet PO 11/18/23 22:41
TIDPRN PRN
hiccups
Heparin Sodium 8,100 units 10/21/23 17:35
Heparin 80 Units/Kg Iv Rebolus IV 11/18/23 17:34
PRN PRN
PTT < OR = 64 seconds
Heparin Sodium 4,100 units 10/21/23 17:35
Heparin 40 Units/Kg Iv Rebolus IV 11/18/23 17:34
PRN PRN
PTT = 64.1 to 72.9 seconds
Heparin Sodium 25,000 units in 250 mls @ 0 mls/hr 10/21/23 17:30 10/22/23 09:36
Heparin 56932 Units/250 Ml IV 250 mls
PER PROTOCOL MARYLOU Administration
Protocol
Per Protocol
Lorazepam 2 mg 10/21/23 22:42 10/22/23 03:21
Lorazepam 2 Mg Tablet PO 11/18/23 22:41 2 mg
HSPRN PRN Administration
insomnia
Sodium Chloride 0 flush 10/21/23 22:00
Sodium Chloride 0.9% (Flush) Syringe IV 11/18/23 21:59
PER PROTOCOL MARYLOU
Sumatriptan Succinate 50 mg 10/21/23 22:48
Sumatriptan (Imitrex) 50 Mg Tablet PO 11/18/23 22:47
DAILYPRN PRN
migraine
Review of Systems
-
All Other Systems: Reviewed and Negative
Physical Exam
-
General: Well Developed, No Apparent Distress, Comfortable and Conversant
HEENT: Moist Mucous Membranes
Cardiology: Normal Sinus Rhythm
Pulmonary: Clear
GI: Soft and Normal Bowel Sounds
Musculoskeletal: No Clubbing, No Cyanosis, Edema, Right Lower Extrem and Edema, Left Lower Extrem
Extremities: No C/C/E
Neurology: Non Focal, No Lateralizing Symptoms and No Word Finding Difficulty
Skin: Warm and Dry
Psych: Calm and Intact Judgement/Insight
Labs
Lab Results
WBC 16.9 10^3/uL (4.8-10.8) H 10/22/23 05:32
RBC 2.87 10^6/uL (4.70-6.10) L 10/22/23 05:32
Hgb 7.6 g/dL (13.0-18.0) L 10/22/23 05:32
Hct 22.8 % (39.0-52.0) L 10/22/23 05:32
MCV 79.4 fL (80.0-94.0) L 10/22/23 05:32
MCH 26.5 pg (27.0-31.0) L 10/22/23 05:32
MCHC 33.3 g/dL (33.0-37.0) 10/22/23 05:32
RDW 18.5 % (11.5-14.5) H 10/22/23 05:32
Plt Count 190 10^3/uL (130-400) 10/22/23 05:32
MPV 10.5 fL (7.4-10.4) H 10/22/23 05:32
Abs Immat Gran (auto) 0.3 10^3/uL (0-0.05) H 10/22/23 05:32
Absolute Neuts (auto) 14.4 10^3/uL (1.4-6.5) H 10/22/23 05:32
Absolute Lymphs (auto) 0.8 10^3/uL (1.2-3.4) L 10/22/23 05:32
Absolute Monos (auto) 1.0 10^3/uL (0.1-0.6) H 10/22/23 05:32
Absolute Eos (auto) 0.3 10^3/uL (0-0.7) 10/22/23 05:32
Absolute Basos (auto) 0.1 10^3/uL (0-0.2) 10/22/23 05:32
Immature Gran % 1.8 % (0-0.5) H 10/22/23 05:32
Neutrophils % 84.8 % (42.2-75.2) H 10/22/23 05:32
Lymphocytes % 4.9 % (20.5-51.1) L 10/22/23 05:32
Monocytes % 6.1 % (1.7-9.3) 10/22/23 05:32
Eosinophils % 2.0 % (0-6) 10/22/23 05:32
Basophils % 0.4 % (0-2) 10/22/23 05:32
Creatinine 1.3 mg/dL (0.7-1.3) 10/22/23 05:32
Vital Signs
Vital Signs
Temp Pulse Resp BP Pulse Ox
98.3 F 87 27 119/67 93
10/22/23 08:09 10/22/23 06:00 10/22/23 06:00 10/22/23 06:00 10/22/23 08:58
[2023-10-22 11:29] LABS: NT-proBNP 2060 pg/ml
[2023-10-22] MEDS: LASIX 40 MG IV (11:57)
--- NOTE | 2023-10-22 12:09 | CM ---
Addendum entered by Jhon Garces 10/22/23 15:37:
CM placed an order for a hospital bed and a wheelchair to [facility]. A script for DME with ptss clinical faxed to [facility] at [phone] with a request to jacqui to pt's daughter address: [address] [place] [address], [place] [id number]. [place]
[facility]
CM made a referral to a few VN agencies in [facility] and will follow up tomorrow.
D/C plan: pt will go to daughter's house in [facility] with necessary DME, preferred VN, family support and pt will start radiation treatment.
CM will follow with discharge plan updates as hospitalization progresses
Original Note:
CM following re: discharge planning.
Reviewed pt's chart, met with pt and spoke to pt's daughter Nicole [phone].
Pt reports he lives alone in a [facility] apartment, has supportive daughter Nicole and a girlfriend who lives 20 minutes away. Pt reports he ambulates with a walker at baseline, [facility] with [facility]. Pt expressed his desire to return back home if able and
pt asked to coordinate his discharge plan with his daughter Nicole.
CM spoke to pt's daughter Nicole and she stated she is focusing on the best treatment plan option for her father. Per daughter if radiation treatment must starts right away then pt will go to stay in her house in [place]: [address] [place] [address],
[facility] [id number]. Per daughter if radiation treatment does not need to be started right away then pt will need to go to a SNF to gain strengths. Per daughter, anyway, if pt needs 24/7 care he will not return back to his apartment and he will go
to live with her.
CM communicated with Oncologist and per oncologist pt needs to start radiation treatment first.
CM spoke to pt's daughter again and she stated that at that point pt will go to her house at discharge and she will bring him to radiation treatment. pt's daughter requested electric hospital bed and a wheelchair to be order and delivered to her
house in [place]. Also, pt's daughter requested VN services in [place].
CM will obtain a script for hospital bed, wheelchair, will find preferred DME provider that services [facility] to order DME. CM will look up for VN services that services [facility].
D/C plan: pt will go to daughter's house in [facility] with necessary DME, preferred VN, family support and pt will start radiation treatment.
CM will follow with discharge plan updates as hospitalization progresses
--- NOTE | 2023-10-22 13:09 | PTOTSP ---
ST Acute Care Evaluation
Pt currently presents with oral and pharyngeal parameters that are WFL for all solids and liquids. HOWEVER, pt recently diagnosed with a near-completely obstructing esophageal mass, resulting in suspected esophageal dysfunction (likely with solids
more than liquids) and significantly increasing pt's risk for aspiration/penetration from retrograde flow.
Recommendations:
- Initiate PO diet of SOFT BITE SIZED SOLIDS and THIN LIQUIDS with meds as tolerated.
- Registered dietitian consult.
- STRICT ASPIRATION/REFLUX PRECAUTIONS: HOB fully upright for all PO intake and for at least 1.5 hours after PO intake; small frequent meals; encourage liquid ingestion of supplement drinks if pt is unable to tolerate solid foods; over-chew foods;
alternate solids and liquids; d/c PO intake if pt experiences regurgitation or respiratory distress.
- TROUBLE SHOOTER to f/u re: diet tolerance and use of compensatory strategies to aid PO intake/nutrition and reduce symptoms.
[2023-10-22] MEDS: THORAZINE 25 MG PO (13:52)
[2023-10-22 14:19] LABS: APTT 75.9 Sec (23.4-35.0)
--- NOTE | 2023-10-22 16:59 | W.PN.HOSP.TC ---
Today's Communication/Plan
-
transfuse 1 unit now
recheck HGb in AM
Assessment / Plan
Assessment / Plan
#Acute hypoxic resp insufficiency secondary to Bilateral pulmonary emboli with right heart strain
#Acute CHF with bilateral leg +3 edema
-PERT alert was called and was recommended IV Heparin at present time
potential transition to DOAC next 24 hrs
-Consult Business Education Instructor
input appreciated
-Consult Cardiology
input appreciated
-Venous Doppler bilateral legs
There is occlusive thrombus within the right femoral and bilateral popliteal veins. There is also occlusive thrombus within the right posterior tibial vein. Nonvisualization of the peroneal veins bilaterally. Flow is detected in the posterior
tibial vein on the left.
-2D echo: Normal left ventricular size and systolic function. No regional wall motion
abnormalities are seen. LV ejection fraction is 55-60% by Nunez's method of
discs. Mild concentric left ventricular hypertrophy.
Mild tricuspid regurgitation. Estimated pulmonary artery pressure of 55-60
mmHg.
No prior study available for comparison.
-IV Lasix 40 mg now
-I/O, daily weight
CT PE study:
1. Extensive bilateral pulmonary emboli with CT evidence for right heart strain.
2. Small left and moderate right pleural effusions, progressed.
3. Findings suggesting mild diffuse pulmonary interstitial edema, new from prior.
4. Re demonstration of distal esophageal neoplasm and extensive hepatic metastases, progressed.
5. 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
#Small left and moderate right pleural effusion
discussed potential IRAD thoracentesis. Can be done while on Heparin, but unfortunately high potential that current etiology is malignancy associated and as per dgt, pt would not want a chest tube. Currently he is showing no respiratory
distress and can not have his anticoagulation stopped, as such will hold on doing thoracentesis and reassess tomorrow
#Recent aspiration pneumonia from hiccups
Treated with cefepime, Doxy transition to oral cefdinir 10/02 - 10/09/2023
#Esophageal CA with metastases to liver new Dx September 2023
#dysphagia secondary to distal esophageal mass mets to liver
Was due for radiation tomorrow 10/22/[address] Ian Corbett in [facility]
-Consult Oncology
-IV Protonix 40 mg twice daily
EGD 10/04/2023 partially obstructing malignant esophageal tumor found in the lower third of the esophagus which was biopsied
#Worsening anemia
Hgb 8, received 1 unit PRBC-->7.6, will transfuse another unit now
Reports occasional blood on his pillow he reports regurgitates from his esophagus
Patient had transfusion 1 unit PRBC for Hgb of 6.6 on 10/07/2023
-type and screen, transfused 1 unit PRBC
#JULIA on CKD
Creat 1.5/bun 53-->1.3/63
-Hold on fluids due to current volume overload
-Monitor BMP given need for IV Lasix
#HTN�benign
BP 124/71
-Continue irbesartan hold for BP parameters
#Anxiety
-Patient takes 4 mg of Ativan at night will decrease to 2 mg
Other PMH:
Migraines -as needed Imitrex 50-100 mg
Prostate cancer-patient on anastrozole 1 mg p.o. Tuesdays, clomiphene citrate 25 mg daily
DVT prophylaxis
IV heparin drip due to current bilateral pulmonary embolisms
reviewed extensively with dgt and others at bedside and out of room
okay to transfer OOICU
time 60 minutes
DNR per patient with daughter at bedside
Anticipated Discharge: > 48 hours
Subjective/Interval History
-
Date of Service: October 22, 2023
Remains weak, reviewed with dgt, sig other an family friend in and out of room
Objective Data
-
Labs:
Laboratory Results
10/22/23 10/22/23 10/22/23
05:32 08:39 13:51
WBC 16.9 H
Hgb 7.6 L
Hct 22.8 L
Plt Count 190
APTT 95.3 H 75.9 H
Sodium 131 L
Potassium 4.4
Chloride 101
Carbon Dioxide 19 L
BUN 61 H
Creatinine 1.3
Glucose 104 H
Calcium 8.4
Total Bilirubin 1.1
AST 182 H
ALT 54 H
Alkaline Phosphatase 511 H
Vital Signs:
Vital Signs
Temp Pulse Resp BP Pulse Ox
97.8 F 90 32 112/78 94
10/22/23 15:33 10/22/23 11:00 10/22/23 11:00 10/22/23 11:57 10/22/23 11:00
I&O
10/21/23 10/22/23 10/23/23
06:59 06:59 06:59
Intake Total 424 / 439 390 / 390
Output Total 200 / 200
Balance 224 / 239 390 / 390
Review of Systems
-
History Source: Patient, Family and Coordinated Provider
Constitutional: Denies Fever
EENT: Reports No Symptoms Reported
Respiratory: Reports No Symptoms
Cardiac: Reports No Symptoms
Abdomen/GI: Denies Abdominal Pain
Musculoskeletal: Reports Muscle Weakness
Physical Exam
-
General: Well Developed, Well Nourished, No Apparent Distress and Appears Chronically Ill
HEENT: Normocephalic, Atraumatic and Moist Mucous Membranes
Respiratory: Clear to Auscultation; Negative Wheezes, Rales or Rhonchi
Cardiac: Regular Rhythm and S1/S2
GI: Soft, Nontender and Nondistended
Musculoskeletal: Edema, Right Lower Extrem and Edema, Left Lower Extrem
Skin: Warm and Dry
Neuro: Awake and Alert
[2023-10-22] MEDS: TYLENOL 650 MG PO (17:17)
[2023-10-22 17:55] LABS: Hematocrit 20.3 % (39.0-52.0); Hemoglobin 6.8 g/dL (13.0-18.0); Mean Corp Hgb Conc. 33.5 g/dL (33.0-37.0); Mean Corpuscular Hgb 26.8 pg (27.0-31.0); Mean Corpuscular Volume 79.9 fL (80.0-94.0); Mean Platelet Volume 10.8 fL (7.4-10.4); Platelet Count 216 10^3/uL (130-400); Red Blood Cell Count 2.54 10^6/uL (4.70-6.10); Red Cell Dist. Width 18.6 % (11.5-14.5); White Blood Cell Count 17.8 10^3/uL (4.8-10.8)
--- NOTE | 2023-10-22 18:01 | W.PN.UPDATE ---
Update Note
Progress Note Update
Notified by nurse CBC showed Hb of 6.8. Clinically patient is not bleeding although he appears pale. 2 units PRBC here now ordered. Heparin drip will be put on hold as patient's BUN is rising and I am concerned for an acute upper GI bleed. PPI
ordered and GI to be consulted. I will keep patient in the ICU for continued monitoring. Family + primary hospitalist updated.
[2023-10-22] MEDS: FERRLECIT 110 MG IV (18:07)
[2023-10-22] MEDS: NSS (PRESERVATIVE FREE) 20 ML IV (18:24)
[2023-10-22] MEDS: PROTONIX IV 80 MG IV (18:24)
--- NOTE | 2023-10-22 18:30 | PTCARENOTE ---
cbc done hgb low. 2 units prbc ordered heparin gtt stopped. pt restless in bed repositioned tylenol given. pt family updated on pt condition.
[2023-10-22] MEDS: MORPHINE SULFATE 1 MG IV ×2 (19:25→21:50)
--- NOTE | 2023-10-22 19:25 | PTCARENOTE ---
rec'd pt anxious, gen pain, restless, morphine 1 mg iv given w/ relief, family at bedside & updated on pt status, dtr requests pt to be kept comfortable, SR/ w/ 1'AV block, pac's, weak distal pulses, + LE edema, skin warm/dry, RA, sat 96, lungs
decr, hypo bowel sounds, no bm, abd obese, soft, no n/v, npo, inc of urine- attends, changed, prbc infusing
--- NOTE | 2023-10-22 21:07 | PTCARENOTE ---
PRBC mikhail, pt aware to call if any sob, paoin, discomfort
--- NOTE | 2023-10-22 21:50 | PTCARENOTE ---
morphine 1mg iv given
[2023-10-22] MEDS: ATIVAN 0.5 MG IV (22:35)
--- NOTE | 2023-10-22 22:35 | PTCARENOTE ---
ativan 0.5mg iv given for anxm Left AC IV ecchy at site, good blood return
--- NOTE | 2023-10-22 23:27 | PTCARENOTE ---
sys reviewed, changes noted, CHG bath done, linens changed, prbc infused
[2023-10-23] VITALS (22 sets, daily range): BP systolic 81–148; BP diastolic 57–100; BMI 29.0
[2023-10-23] MEDS: MORPHINE SULFATE 2 MG IV (02:12)
--- NOTE | 2023-10-23 02:13 | PTCARENOTE ---
morphine 2mg iv given for sob
[2023-10-23 02:27] LABS: Venous Blood Gas HCO3 19.5 mmol/L (22-27); Venous Blood Gas O2 Sat % 98.9 %; Venous Blood Gas pCO2 33 mmHg (35-48); Venous Blood Gas pH 7.38 (7.32-7.43); Venous Blood Gas pO2 112 mmHg (30-50)
[2023-10-23 02:32] LABS: Hematocrit 26.8 % (39.0-52.0); Mean Corp Hgb Conc. 33.6 g/dL (33.0-37.0); Mean Corpuscular Hgb 27.7 pg (27.0-31.0); Mean Corpuscular Volume 82.5 fL (80.0-94.0); Mean Platelet Volume 10.3 fL (7.4-10.4); Platelet Count 173 10^3/uL (130-400); Red Blood Cell Count 3.25 10^6/uL (4.70-6.10); Red Cell Dist. Width 18.6 % (11.5-14.5); White Blood Cell Count 18.4 10^3/uL (4.8-10.8)
[2023-10-23 02:33] LABS: % Basophils 0.4 % (0-2); % Eosinophils 1.7 % (0-6); % Immature Granulocytes 2.6 % (0-0.5); % Lymphocytes 5.2 % (20.5-51.1); % Monocytes 7.6 % (1.7-9.3); % Neutrophils 82.5 % (42.2-75.2); Absolute Basophils 0.1 10^3/uL (0-0.2); Absolute Eosinophils 0.3 10^3/uL (0-0.7); Absolute Immature Granulocytes 0.5 10^3/uL (0-0.05); Absolute Monocytes 1.4 10^3/uL (0.1-0.6); Absolute Neutrophils 15.2 10^3/uL (1.4-6.5); Nucleated Red Blood Cells % 0.8 % (-)
[2023-10-23 02:39] LABS: INR 1.44; PT 17.4 Sec (11.4-14.6)
[2023-10-23 02:40] LABS: APTT 35.4 Sec (23.4-35.0)
[2023-10-23 02:50] LABS: ALT (SGPT) 44 U/L (0-50); AST (SGOT) 147 U/L (17-59); Albumin 2.4 g/dl (3.5-5.0); Alkaline Phosphatase 401 U/L (38-126); Blood Urea Nitrogen 67 mg/dl (9-20); Calcium 7.9 mg/dl (8.4-10.2); Carbon Dioxide 17 mmol/L (22-30); Chloride 104 mmol/L (98-107); Estimated Creatinine Clearance 47 ml/min; Glucose 101 mg/dl (70-99); Magnesium 2.1 mg/dl (1.6-2.3); Phosphorus 4.3 mg/dl (2.5-4.5); Potassium 4.4 mmol/L (3.5-5.1); Sodium 133 mmol/L (135-145); Total Bilirubin 1.3 mg/dl (0.2-1.3); Total Protein 4.6 g/dl (6.3-8.2); eGFR 51.13
--- NOTE | 2023-10-23 03:50 | PTCARENOTE ---
dario reviewed, much more comf with prn ativan & morphine
[2023-10-23] MEDS: PROTONIX IV 40 MG IV ×2 (07:24→19:38)
[2023-10-23] MEDS: NSS (PRESERVATIVE FREE) 10 ML IV ×2 (07:24→19:38)
[2023-10-23] MEDS: LASIX 40 MG IV (07:24)
--- NOTE | 2023-10-23 07:31 | W.PN.ONC2 ---
Addendum entered and electronically signed by Yuri Day MD 10/23/23 07:45:
Stop IV iron as iron stores and ferritin adequate
Addendum entered and electronically signed by Yuri Day MD 10/23/23 07:44:
Requiring morphine for esophageal chest pain. Makes him lethargic and somewhat euphoric per family.
Original Note:
Today's Communication / Plan
-
Possible hospice. If he declines...IVC filter.
Seems to be rapidly declinging.
Px poor.
Impression
Impression
Extensive bilateral pulmonary embolism and bilateral lower extremity DVTs
Metastatic esophageal cancer, recently diagnosed with near obstructing esophageal primary mass and liver metastases
Esophgeal cancer bleeding
Anemia, ferritin >100
Chronic testosterone use
Plan
Plan
Extensive pulmonary emboli and DVT likely provoked by testosterone use and hypercoagulability of malignancy
STOP testosterone use
Agree with heparin in theory, could transition to Eliquis when able.
Heparin stopped with persistent anemia and suspected ongoing bleeding from known esophageal mass.
Not sure what GI consult would add.
If patient wishes to be aggressive (they are leaning towards comfort care), he would need IVC filter as anticoagulation could be challenging.
Iron studies suggest adequate iron stores with ferritin greater than 100
Would transfuse packed red blood cells as clinically indicated.
Discussed hospice comfort care. They seem to be heading in that direction. Will consult hospice.
If declines hospice...
Palliative radiation for near obstructing esophageal primary mass to be rescheduled at the time of discharge
Palliative chemotherapy with FOLFOX to follow radiation if PS remains adequate (hard to determine at present but suspect PS too poor to be chemoTx eligible).
TIME: 55 min including coordination of end of life care.
We will follow along
Subjective/Objective
Chief Complaint
ACS F/U and goal of care convo
Subjective
Patient very weak but arousable and near end of my 20 min visit sort of woke up the most. Family x 3 at bedside. Patients PS has rapidly declined in past 1 week since I saw him in office as new patient.
Vital Signs:
Vital Signs
Temp Pulse Resp BP Pulse Ox
97.8 F 81 20 130/76 90
10/23/23 03:38 10/23/23 06:00 10/23/23 06:00 10/23/23 07:24 10/23/23 04:00
Lab Results:
Laboratory Data
WBC 18.4 10^3/uL (4.8-10.8) H 10/23/23 02:11
Hgb 9.0 g/dL (13.0-18.0) L D 10/23/23 02:11
Plt Count 173 10^3/uL (130-400) 10/23/23 02:11
PT 17.4 Sec (11.4-14.6) H 10/23/23 02:11
INR 1.44 10/23/23 02:11
APTT 35.4 Sec (23.4-35.0) H 10/23/23 02:11
eGFR 51.13 10/23/23 02:11
Physical Exam
PS 4
HEENT: No Jaundice
Cardiology: S1 and S2
Pulmonary: Clear
GI: Soft
Extremities: Edema (RLE 2+)
--- NOTE | 2023-10-23 07:49 | PTCARENOTE ---
pt awake sleepy states no pain or sob. moves in bed. room air. breath sounds diminished. large bruise noted at inner left elbow/arm area. pt family at bedside. reviewed plan of care.
--- NOTE | 2023-10-23 08:12 | W.PN.INTV ---
Today's Communication / Plan
Recommendations
Continue holding systemic anticoagulation in setting of unstable anemia
CPAP with sleep (patient's family will bring in his own unit)
Goal SpO2 >90-94%
Diurese as tolerated - cardiology on board
Goals of care discussion pending once daughter arrives to hospital. Continue trending Hb until goals of care discussion takes place.
Continue ICU level of care pending discussion above. If patient is agreeable to hospice, then will transfer pt. to floor and sign off at that time.
Assessment
-
Assessment: 77-year-old male with a past medical history of aspiration pneumonia, prostate cancer s/p prostatectomy, hypertension, anemia of chronic disease and recently diagnosed distal esophageal adenocarcinoma who presents from home with
worsening weakness for about a month. He was recent diagnosed with esophageal cancer via EGD on 10/04/2023. Imaging also showed suspected left liver mets. He was scheduled for radiation + chemotherapy tomorrow. Initial vitals in the ER showed he
was afebrile to 98.3 �F, pulse rate 79, breathing at 19 breaths minute, BP 119/76 and saturating 92% on room air. Labs showed leukocytosis to 14.5, anemia to 8, serum sodium 130, creatinine 1.5, elevated LFTs and COVID antigen negative. CTA chest
showed extensive bilateral pulmonary emboli with right heart strain and bilateral pleural effusions. PERT alert called, heparin drip started. Pulmonary service consulted for additional management/recommendations.
Chronic conditions DIRECTOR EXECUTIVE COMMUNICATIONS: History of aspiration pneumonia, prostate cancer s/p prostatectomy, hypertension, anxiety, migraines, recently diagnosed distal esophageal adenocarcinoma with suspected liver mets, anemia of chronic disease
Impression:
#Submassive bilateral PE with RV strain, likely provoked from known distal esophageal invasive adenocarcinoma
#Acute anemia suspected to be upper GI bleed in the setting of known distal esophageal invasive adenocarcinoma
#Pulmonary HTN - mainly from left heart disease and KWAN in setting of acute PE
#Leukocytosis � likely reactive
#Bilateral pleural effusions (R>L) worsened compared to prior CT chest on 10/03/2023, suspicious for acute decompensated heart failure vs malignant effusions (likely the former)
#Hyponatremia (mild)
#Acute kidney injury (baseline Cr ~1.1)
#Transaminitis likely due to metastatic disease
#Invasive poorly differentiated adenocarcinoma, via biopsy in distal esophagus from EGD on 10/04/2023
#KWAN on CPAP
Plan:
- Hold systemic anticoagulation in the setting of unstable acute anemia suspected to be UGIB
- GI consulted ---> awaiting pt's goals of care discussion before seeing patient
- If patient wishes to continue with full medical management, then he would need IVC filter
- No need for catheter directed thrombolysis or thrombectomy given his pulmonary artery is <30mm and he is hemodynamically stable and on room air saturating 96-97%
- Pro-BNP elevated at 2059--> diuresed with lasix 40mg IV daily 2 days (last dose today)
- IR thora canceled as pt considering hospice
- Check TTE to assess R-sided pressures -moderate pulmonary hypertension seen with PASP 55 to 60 mmHg assuming an RAP of 3 mmHg. Mild TR. Normal RA size with normal RV size/function. LVEF is preserved at 55-60% with no regional WMA.
- Recommend repeating TTE in about 4-6 weeks however this is a moot point as pt now considering hospice
- Check LE duplex -> bilateral LE DVT seen involving common femoral veins + left femoral vein, as well as occlusive thrombus in the right femoral vein, bilateral popliteal veins and right PT vein
- Maintain SpO2 >90-94% with supplemental O2 as needed
- Incentive spirometer encouraged 10x/hr for at least 4 hrs a day
- Patient uses CPAP for sleep apnea. His family brought in his own machine, advised to continue using this with sleep.
- Replete electrolytes with K>4, Mg>2
- Trend LFTs
- Maintain euglycemia with goal BG >100 and <180
- Eventual systemic treatment for his esophageal cancer - Oncology consulted; recs appreciated
- prn nebulized bronchodilators
- DVT ppx
- Poor prognosis
Family discussion pending once daughter arrived to hospital. Will discuss goals of care with hospice. Considering Hb remains unstable, continue with ICU level of care until goals of care discussion takes place.
Total time spent today was 50 minutes for this encounter. Time includes reviewing laboratory test/imaging results, reviewing pertinent medical records, obtaining and reviewing medical history, performing an appropriate exam, ordering medications,
tests and procedures. Time also includes documentation of this encounter, coordinating patient care and communicating with other healthcare professionals. Total time does not include separately billed tests performed on this date of service.
Data:
CTA Chest 10/21/2023:
1. Extensive bilateral pulmonary emboli with CT evidence for right heart strain.
2. Small left and moderate right pleural effusions, progressed.
3. Findings suggesting mild diffuse pulmonary interstitial edema, new from prior.
4. Redemonstration of distal esophageal neoplasm and extensive hepatic metastases, progressed.
5. 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
CXR 10/22/2023:
Evidence for a small to moderate right pleural effusion.
Focal patchy parenchymal opacity in the medial right lower lung, with main differential considerations of atelectasis and/or pneumonia.
Subtle diffuse increased interstitial and small nodular opacities with subtle peribronchial thickening. Main differential considerations of interstitial edema and interstitial-type pneumonia with bronchitis/bronchiolitis.
CXR 10/23/2023: Slightly increased/progressive patchy heterogeneous airspace opacity at the right mid to lower lung zone. Small right pleural effusion.
LE Duplex - 10/21/2023: Bilateral lower extremity DVT
TTE 10/22/2023:
Normal left ventricular size and systolic function. No regional wall motion
abnormalities are seen. LV ejection fraction is 55-60% by Nunez's method of
discs. Mild concentric left ventricular hypertrophy.
Mild tricuspid regurgitation. Estimated pulmonary artery pressure of 55-60
mmHg.
No prior study available for comparison.
Subjective Dataa
Subjective Data
Date of Service:
Date of Service: October 23, 2023
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
Subjective:
Yesterday he developed acute unstable anemia, received 3 units packed red blood cells total. Hb this morning 9 with no vomiting blood or rectal bleeding seen. Bruising on left arm. Family considering hospice. Patient denies abdominal pain,
nausea, vomiting, shortness of breath and mainly says that he is tired.
Review of Systems
General: Other (Negative unless mentioned above)
Objective Data
Data Reviewed
Vital Signs / I&O / Oxygen:
Vital Signs
Temp Pulse Resp BP Pulse Ox
97.9 F 85 22 109/73 92
10/23/23 07:30 10/23/23 09:00 10/23/23 09:00 10/23/23 09:00 10/23/23 09:00
Intake and Output
10/22/23 10/23/23 10/24/23
06:59 06:59 06:59
Intake Total 424 / 439 1015 / 1015
Output Total 200 / 200
Balance 224 / 239 1015 / 1015
SaO2 92
Physical Exam
General: Respiratory Distress (negative), Comfortable, Chills (negative) and Sweats (negative)
HEENT: Normocephalic and Anicteric
Cardiovascular: S1-S2 and Peripheral Edema (Trace lower extremity edema bilaterally)
Respiratory: Clear, Wheeze (negative), Crackles (negative), Rhonchi (negative) and Non-Labored Respirations
GI: Soft, Non Distended, Non Tender and Normal Bowel Sounds
Neurology: Awake, Alert and Tremors (negative)
Skin: Warm, Dry, Cyanosis (negative) and Jaundice (negative)
Labs/Micro/Reports
Lab Data
10/23/23 02:11
10/23/23 02:11
Laboratory Results
10/22/23 10/22/23 10/23/23
08:39 13:51 02:11
PT 17.4 H
INR 1.44
APTT 95.3 H 75.9 H 35.4 H
--- NOTE | 2023-10-23 09:07 | W.PN.CARDCBS ---
Today's Communication / Plan
-
Continue gentle diuresis. LVEF is overall preserved. Creatinine at 1.4.
IV heparin has been held. Continue discussions regarding level of care and long-term prognosis.
Could consider IVC filter.
LVEF is preserved.
Impression / Plan
-
PCP: Fabián Aldanar
Impression:
Shortness of breath
Bilateral pulmonary emboli
Bilateral DVT
Bilateral pleural effusions,
Acute HF pEF
Anemia, received 1 unit PRBCs 10/21/2023
Hypertension
Esophageal adenocarcinoma with liver metastases
Acute kidney injury, creatinine 1.5 10/21/2023, 1.3 10/22/2023
Elevated LFTs
Temporal arteritis status post bilateral biopsy 08/16/2023
Hyponatremia
Cardiovascular studies:
EKG 10/21/2023: Normal sinus rhythm with first-degree AV block, IN interval 324 ms
Echo 10/22/2023, EF 55 to 60%, mild LVH, mild TR with PA pressure 55-60
Plan:
Heparin drip stopped overnight because of hemoglobin down to 6.8. Agree with transfusion. Could consider IVC filter.
Echo with preserved ejection fraction with elevated PA pressures. This could be from acute heart failure with preserved ejection fraction or from his pulmonary embolism.
Will continue diuresis with Lasix 40 mg IV daily. Creatinine at 1.4.
CT scan with progressive esophageal adenocarcinoma with metastases. Long-term prognosis appears to be very poor.
Agree with plans for morphine and DNR.
Discussed with family at length
CC time 31
Progress Note - Rater Associate
Subjective
Date of Service: October 23, 2023
Denies chest pains. Resting in bed. Feels weak and tired
Objective
Labs:
10/23/23 02:11
10/23/23 02:11
Labs
Hgb 9.0 g/dL (13.0-18.0) L D 10/23/23 02:11
Hct 26.8 % (39.0-52.0) L 10/23/23 02:11
Plt Count 173 10^3/uL (130-400) 10/23/23 02:11
PT 17.4 Sec (11.4-14.6) H 10/23/23 02:11
INR 1.44 10/23/23 02:11
APTT 35.4 Sec (23.4-35.0) H 10/23/23 02:11
Sodium 133 mmol/L (135-145) L 10/23/23 02:11
Potassium 4.4 mmol/L (3.5-5.1) 10/23/23 02:11
BUN 67 mg/dl (9-20) H 10/23/23 02:11
Creatinine 1.4 mg/dL (0.7-1.3) H 10/23/23 02:11
Glucose 101 mg/dl (70-99) H 10/23/23 02:11
Vital Signs and I&O:
Vital Signs
Temp Pulse Resp BP Pulse Ox
97.9 F 85 22 109/73 92
10/23/23 07:30 10/23/23 09:00 10/23/23 09:00 10/23/23 09:00 10/23/23 09:00
Vital Signs
Temp Pulse Resp BP Pulse Ox
97.9 F 85 22 109/73 92
10/23/23 07:30 10/23/23 09:00 10/23/23 09:00 10/23/23 09:00 10/23/23 09:00
Intake & Output
10/21/23 10/22/23 10/23/23 10/24/23
06:59 06:59 06:59 06:59
Intake Total 424 / 439 1015 / 1015
Output Total 200 / 200
Balance 224 / 239 1015 / 1015
Physical Exam
Physical Exam
GEN: No distress, awake, Ox3
HEENT: supple, anicteric, mmm
LUNGS: dec BS at bases
CV: Reg, S1/S2, 02/16 syst LSB, no gallop
ABD: soft, BS+, NT/ND
EXT: + edema
NEURO: Gross non-focal
SKIN: No rash
--- NOTE | 2023-10-23 09:25 | CM ---
CM following re: discharge planning.
Reviewed pt's chart, met with pt and spoke to pt's daughter Nicole over the phone.
Hospice consult noted. both pt and his daughter are aware, expressed their agreement and hospice preferred. pt's daughter stated that family will keep the pt at his apartment in [place] and family will be with the pt all the time. Emotional
support offered and provided.
CM spoke to [employer] liaison and an order for hospital bed and wheelchair has been cancelled.
A referral to hospice made, [employer] operations liaison.
D/C plan: home with hospice.
CM will follow to assist pt with discharge home with hospice.
--- NOTE | 2023-10-23 12:24 | HOSPNOTE ---
Spoke at length with daughter Nicole and discussed hospice and the philosophy. The daughter will be in later this afternoon and discuss hospice with her Dad. Equipment will need to be ordered bed, nat, table and patient will need transport via
ambulance and OOH DNR will be needed on chart. If the patient agrees the plan would be home Saturday10/25/23.
--- NOTE | 2023-10-23 17:10 | W.PN.UPDATE ---
Update Note
Progress Note Update
Spoke with family including daughter, Nicole, and they are interested in pursuing hospice. Patient is awake, alert and agrees with this. Orders to transfer to med-surg to be placed, with transition to comfort care. ICU charge nurse made aware,
and so was primary hospitalist.
--- NOTE | 2023-10-23 18:30 | PTCARENOTE ---
Patient transferred from ICU to on comfort care. Patient and family oriented to room. No s/s of distress noted at this time. Patient resting comfortably. plan of care ongoing. VS documented.
--- NOTE | 2023-10-23 19:04 | W.PN.HOSP.TC ---
Today's Communication/Plan
-
had a discussion about going towards hospice and comfort care. needed more time. daughter was not at bedside when i was preent. girlfriend was there who cannot make any medical decisions.
s/p 3u prbc
b/l pe and dvt. unable to anticoagulate as he is likely bleeding. would consider ivc.
overall progbosis is grim.
Assessment / Plan
Assessment / Plan
#Acute hypoxic resp insufficiency secondary to Bilateral pulmonary emboli with right heart strain
#Acute CHF with bilateral leg +3 edema
-PERT alert was called and was recommended IV Heparin at present time
potential transition to DOAC next 24 hrs
-Consult Drop Forger Helper
input appreciated
-Consult Cardiology
input appreciated
-Venous Doppler bilateral legs
There is occlusive thrombus within the right femoral and bilateral popliteal veins. There is also occlusive thrombus within the right posterior tibial vein. Nonvisualization of the peroneal veins bilaterally. Flow is detected in the posterior
tibial vein on the left.
-2D echo: Normal left ventricular size and systolic function. No regional wall motion
abnormalities are seen. LV ejection fraction is 55-60% by Nunez's method of
discs. Mild concentric left ventricular hypertrophy.
Mild tricuspid regurgitation. Estimated pulmonary artery pressure of 55-60
mmHg.
No prior study available for comparison.
-IV Lasix 40 mg now
-I/O, daily weight
CT PE study:
1. Extensive bilateral pulmonary emboli with CT evidence for right heart strain.
2. Small left and moderate right pleural effusions, progressed.
3. Findings suggesting mild diffuse pulmonary interstitial edema, new from prior.
4. Re demonstration of distal esophageal neoplasm and extensive hepatic metastases, progressed.
5. 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
#Small left and moderate right pleural effusion
discussed potential IRAD thoracentesis. Can be done while on Heparin, but unfortunately high potential that current etiology is malignancy associated and as per dgt, pt would not want a chest tube. Currently he is showing no respiratory
distress and can not have his anticoagulation stopped, as such will hold on doing thoracentesis and reassess tomorrow
#Recent aspiration pneumonia from hiccups
Treated with cefepime, Doxy transition to oral cefdinir 10/02 - 10/09/2023
#Esophageal CA with metastases to liver new Dx September 2023
#dysphagia secondary to distal esophageal mass mets to liver
Was due for radiation tomorrow 10/22/[address] Ian Corbett in [facility]
-Consult Oncology
-IV Protonix 40 mg twice daily
EGD 10/04/2023 partially obstructing malignant esophageal tumor found in the lower third of the esophagus which was biopsied
#Worsening anemia
Hgb 8, received 1 unit PRBC-->7.6, will transfuse another unit now
Reports occasional blood on his pillow he reports regurgitates from his esophagus
Patient had transfusion 1 unit PRBC for Hgb of 6.6 on 10/07/2023
-type and screen, transfused 1 unit PRBC
#JULIA on CKD
Creat 1.5/bun 53-->1.3/63
-Hold on fluids due to current volume overload
-Monitor BMP given need for IV Lasix
#HTN�benign
BP 124/71
-Continue irbesartan hold for BP parameters
#Anxiety
-Patient takes 4 mg of Ativan at night will decrease to 2 mg
Other PMH:
Migraines -as needed Imitrex 50-100 mg
Prostate cancer-patient on anastrozole 1 mg p.o. Tuesdays, clomiphene citrate 25 mg daily
DVT prophylaxis
IV heparin drip due to current bilateral pulmonary embolisms
reviewed extensively with dgt and others at bedside and out of room
okay to transfer OOICU
time 60 minutes
DNR per patient with daughter at bedside
Anticipated Discharge: > 48 hours
Subjective/Interval History
-
Date of Service: October 23, 2023
seen and examined. no new complaints. no acute overnight events.
family considering hospice/comfort care
Objective Data
-
Labs:
Laboratory Results
10/23/23 10/23/23
01:00 18:00
WBC Cancelled Cancelled
Hgb Cancelled Cancelled
Hct Cancelled Cancelled
Plt Count Cancelled Cancelled
Vital Signs:
Vital Signs
Temp Pulse Resp BP Pulse Ox
99.0 F 87 22 125/74 95
10/23/23 18:54 10/23/23 18:54 10/23/23 18:54 10/23/23 18:54 10/23/23 18:54
I&O
10/22/23 10/23/23 10/24/23
06:59 06:59 06:59
Intake Total 424 / 439 1015 / 1015 400 / 400
Output Total 200 / 200
Balance 224 / 239 1015 / 1015 400 / 400
[2023-10-23] MEDS: THORAZINE 25 MG PO (19:38)
[2023-10-23] MEDS: DILAUDID 0.5 MG IV ×2 (20:22→22:34)
[2023-10-23] MEDS: ATIVAN 0.5 MG IV (22:41)
[2023-10-23] MEDS: NSS (PRESERVATIVE FREE) 0.25 ML IV (22:41)
[2023-10-24] MEDS: DILAUDID 0.5 MG IV ×2 (01:43→10:39)
[2023-10-24 07:07] VITALS: BP 117/73
--- NOTE | 2023-10-24 09:08 | W.PN.ONC2 ---
Today's Communication / Plan
-
discharge planning for comfort focused care underway
Impression
Impression
Extensive bilateral pulmonary embolism and bilateral lower extremity DVTs
Metastatic esophageal cancer, recently diagnosed with near obstructing esophageal primary mass and liver metastases
Esophgeal cancer bleeding
Anemia, ferritin >100
Chronic testosterone use
Opting for comfort focused care
Plan
Plan
Comfort focused care being pursued
Subjective/Objective
Chief Complaint
no new complaints, appears comfortable. Family at bedside
Subjective
afebrile, no hypoxia or hypotension.
morphine changed to hydromorphone with improved pain control
Vital Signs:
Vital Signs
Temp Pulse Resp BP Pulse Ox
98.5 F 97 14 117/73 92
10/24/23 07:07 10/24/23 07:07 10/24/23 07:07 10/24/23 07:07 10/24/23 07:07
Lab Results:
Laboratory Data
WBC Cancelled 10/23/23 18:00
Hgb Cancelled 10/23/23 18:00
Plt Count Cancelled 10/23/23 18:00
PT 17.4 Sec (11.4-14.6) H 10/23/23 02:11
INR 1.44 10/23/23 02:11
APTT 35.4 Sec (23.4-35.0) H 10/23/23 02:11
eGFR 51.13 10/23/23 02:11
Physical Exam
PS 4
HEENT: No Jaundice
Cardiology: S1 and S2
Pulmonary: Clear
GI: Soft
Extremities: Edema (RLE 2+)
Review of Systems
Review of Systems
ROS notable for subjective, otherwise negative
[2023-10-24] MEDS: PROTONIX IV 40 MG IV (09:21)
[2023-10-24] MEDS: NSS (PRESERVATIVE FREE) 10 ML IV (09:21)
--- NOTE | 2023-10-24 09:34 | HOSPNOTE ---
Patient and family are requesting discharge today. Equipment will arrive at the patients home before noon today. Dr Arias is in agreement with discharge today 10/23
--- NOTE | 2023-10-24 10:42 | W.PN.HOSP.TC ---
Today's Communication/Plan
-
Home hospice
Comfort care
Comfort feeds with understanding of aspiration
Assessment / Plan
Assessment / Plan
NAD, resting comfortably in bed
Scleral anicteric
Moist mucous membranes
CTA bilateral
Normal S1-S2 no murmurs
Soft nontender nondistended bowel sounds active
Bilateral lower extremity edema worse on the right than the left
Moves extremities spontaneously
AAOx3
Esophageal cancer with hepatic mets. Oncology has recommended palliative radiation with chemotherapy if performance status does not change. However family has elected to go towards hospice and comfort care.
Acute VTE with right heart strain; bilateral PE DVT, provoked, setting of malignancy testosterone use. Started on heparin drip however unable to tolerate due to anemia, suspect bleeding from esophageal cancer. No further workup required as family
has declined as they want to pursue hospice comfort care. They have declined IVC filter as they want to pursue hospice comfort care.
JULIA on CKD likely secondary to poor p.o. intake. Creat around 1.1-1.3. Today 1.4. Encourage p.o. intake as tolerated or will need to start IV fluids. Be noted that he has a near total occlusion of esophagus from esophageal mass that is likely
impeding intake.
Metabolic acidosis bicarb 17. Could be related to renal dysfunction.
Out of hospital DNR signed and placed in chart
Home hospice has been elected.
Hospice bed and equipment to be delivered to house today.
Per case management picker packer to take home for hospice has been set up for noon
Anticipated Discharge: Today
Subjective/Interval History
-
Date of Service: October 24, 2023
Seen and examined. No new complaints. No acute overnight events.
Sister at that.
Objective Data
-
Vital Signs:
Vital Signs
Temp Pulse Resp BP Pulse Ox
98.5 F 97 14 117/73 92
10/24/23 07:07 10/24/23 07:07 10/24/23 07:07 10/24/23 07:07 10/24/23 07:07
I&O
10/23/23 10/24/23 10/25/23
06:59 06:59 06:59
Intake Total 1015 / 1015 880 / 880
Balance 1015 / 1015 880 / 880
--- NOTE | 2023-10-24 10:52 | W.DCSUMMARY ---
Discharge Summary
Discharge Data
Date of Admission: 10/21/23
Date of Discharge: 10/24/23
-
Pending Results: No
Hospital Course
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
Additionally, found to have bilateral pulmonary embolism with right heart strain. Started on IV heparin. Was evaluated by cardiology and pulmonary. 2D echocardiogram showed LVEF of 55 to 60%, pulmonary pressure of 55-60 which is high. DVT study
positive for bilateral DVT in both legs. These blood clots were believed to be provoked by esophageal cancer/malignancy and testosterone use (which has been stopped). Was started on anticoagulation with heparin drip unfortunately unable to
tolerate as blood levels continue to decrease requiring additional blood transfusions. At that point oncology evaluated with recommendations if unable to place IVC filter then would proceed with comfort care hospice. If declines hospice then would
go towards palliative radiation and chemotherapy if performance status remains adequate. However, decision was made for comfort care hospice which was/is appropriate.
CTPE study
IMPRESSION:
1. Extensive bilateral pulmonary emboli with CT evidence for right heart strain.
2. Small left and moderate right pleural effusions, progressed.
3. Findings suggesting mild diffuse pulmonary interstitial edema, new from prior.
4. Redemonstration of distal esophageal neoplasm and extensive hepatic metastases, progressed.
5. 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
DVT Study
IMPRESSION:
1. Bilateral lower extremity DVT as described.
2d echo
CONCLUSIONS
Normal left ventricular size and systolic function. No regional wall motion
abnormalities are seen. LV ejection fraction is 55-60% by Nunez's method of
discs. Mild concentric left ventricular hypertrophy.
Mild tricuspid regurgitation. Estimated pulmonary artery pressure of 55-60
mmHg.
No prior study available for comparison.
CXR
IMPRESSION:
Slightly increased/progressive patchy heterogeneous airspace opacity at the right mid to lower lung zone. Small right pleural effusion.
Discharge Plan
-
Patient Disposition: Home with Hospice
Discharge Diagnosis/Procedures: Esophageal cancer, bilateral pulmonary embolism, bilateral DVT, acute blood loss anemia
Diet: As tolerated
Activity: As tolerated
Driving Restrictions: No driving
Referrals:
Julio Cordova MD [Family Provider] -
Travis Johnson MD [Active] - in four to six weeks
(check full PFT on day of office visit
Obtain CPAP download on day of office visit)
Additional Discharge Medication Instructions: Presented with weakness, fatigue, shortness of breath and low oxygen saturations along with low blood pressure. Additionally, found to have bilateral pulmonary embolism with right heart strain. Started
on IV heparin. Was evaluated by cardiology and pulmonary. 2D echocardiogram showed LVEF of 55 to 60%, pulmonary pressure of 55-60 which is high. DVT study positive for bilateral DVT in both legs. These blood clots were believed to be provoked by
esophageal cancer/malignancy and testosterone use (which has been stopped). Was started on anticoagulation with heparin drip unfortunately unable to tolerate as blood levels continue to decrease requiring additional blood transfusions. At that
point oncology evaluated with recommendations if unable to place IVC filter then would proceed with comfort care hospice. If declines hospice then would go towards palliative radiation and chemotherapy if performance status remains adequate.
However, decision was made for comfort care hospice which was/is appropriate.
CTPE study
IMPRESSION:
1. Extensive bilateral pulmonary emboli with CT evidence for right heart strain.
2. Small left and moderate right pleural effusions, progressed.
3. Findings suggesting mild diffuse pulmonary interstitial edema, new from prior.
4. Redemonstration of distal esophageal neoplasm and extensive hepatic metastases, progressed.
5. 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
DVT Study
IMPRESSION:
1. Bilateral lower extremity DVT as described.
2d echo
CONCLUSIONS
Normal left ventricular size and systolic function. No regional wall motion
abnormalities are seen. LV ejection fraction is 55-60% by Nunez's method of
discs. Mild concentric left ventricular hypertrophy.
Mild tricuspid regurgitation. Estimated pulmonary artery pressure of 55-60
mmHg.
No prior study available for comparison.
CXR
IMPRESSION:
Slightly increased/progressive patchy heterogeneous airspace opacity at the right mid to lower lung zone. Small right pleural effusion.
Prescriptions:
Continued
lorazepam 1 mg Tablet
4 mg PO HSPRN PRN (Reason: anxiety/sleep)
Patient Comments:
10/03/23: last filled 09/20/23 for 150 tablets over 30 days.
sumatriptan succinate 100 mg Tablet
50 - 100 mg PO DAILYPRN PRN (Reason: migraine)
naproxen sodium [Aleve] 220 mg Tablet
880 mg PO DAILYPRN PRN (Reason: headache)
chlorpromazine 25 mg Tablet
25 mg PO TIDPRN PRN (Reason: hiccups) Qty: 30 0RF
hydrocortisone 1 % Cream
1 applic TOPICAL BIDPRN PRN (Reason: skin issues)
Discontinued
testosterone 20.25 mg/1.25 gram (1.62 %) Gel In Metered-Dose Pump
3 pump TOPICAL DAILY
Discharge Orders:
Discharge Patient (As Directed); Ordered 10/24/23
Ordered By: Hernan Arias
Discharge Date and Time
Print Language: TURKISH
[2023-10-24] MEDS: MORPHINE SULFATE 2 MG IV (11:34)
--- NOTE | 2023-10-24 11:53 | CM ---
Met with patient & daughter
Patient discharge today to home with Hospice.
IMM explained & signed. In chart.
PLAN: Discharge to home with Hospice
--- NOTE | 2023-10-24 13:34 | PN.CDI ---
CDI
- -
CDI:
Physician Documentation Request
Admit Date: 10/21/23 18:55
Dear Doctor Hugo,
Patient admitted for Esophageal cancer.
DC Summary: 'DVT study positive for bilateral DVT in both legs. These blood clots were believed to be provoked by esophageal cancer/malignancy and testosterone use (which has been stopped).'
Clarify which of the following accurately represents the acuity of the DVT. Possible options might include:
____ Acute
Acute on Chronic
____ Other
Use of terms such as suspected, likely, concern for, or probable (associated with a specific diagnosis that is being evaluated, monitored, or treated as if it exists) are acceptable and can be coded in the inpatient setting, when documented at the
time of discharge.
Thank you,
Janelle Conway RN, BSN
CDI Specialist
Available via [place] text
Please use your independent medical judgment in providing your response.
== END 2023-10-24 11:56 | disposition hospice, home (50) | DRG 175 ==
LOC: 2 NORTH 18:55
PROVIDERS: Clinical Nurse Specialist Family Health; Nurse Practitioner; ADMITTING PHYSICIAN Hospitalist; ATTENDING PHYSICIAN Hospitalist; CONSULT PHYSICIAN Internal Medicine Cardiovascular Disease; CONSULT PHYSICIAN Internal Medicine Critical Care Medicine; CONSULT PHYSICIAN Internal Medicine Hematology & Oncology; EMERGENCY PHYSICIAN Student in an Organized Health Care Education/Training Program; FAMILY PHYSICIAN Internal Medicine
PROC: 30233N1 Transfusion of Nonautologous Red Blood Cells into Peripheral Vein, Percutaneous Approach (ICD-10-PCS; 2023-10-21)
DX: I26.99 Other pulmonary embolism without acute cor pulmonale (principal); J69.0 Pneumonitis due to inhalation of food and vomit; C15.5 Malignant neoplasm of lower third of esophagus; I13.0 Hypertensive heart and chronic kidney disease with heart failure and stage 1 through stage 4 chronic kidney disease, or unspecified chronic kidney disease; C78.7 Secondary malignant neoplasm of liver and intrahepatic bile duct; C77.1 Secondary and unspecified malignant neoplasm of intrathoracic lymph nodes; E87.1 Hypo-osmolality and hyponatremia; N17.9 Acute kidney failure, unspecified; D62 Acute posthemorrhagic anemia; I82.412 Acute embolism and thrombosis of left femoral vein; Z11.52 Encounter for screening for COVID-19; R09.02 Hypoxemia; I50.9 Heart failure, unspecified; R06.89 Other abnormalities of breathing; F41.9 Anxiety disorder, unspecified; C61 Malignant neoplasm of prostate; Z51.5 Encounter for palliative care
CPT/HCPCS: 71045; 71275; 80053; 82805; 83735; 83880; 84100; 85025; 85027; 85610; 85730; 86850; 86900; 86901; 86920; 87811; 92610; 93005; 93306; 93970; 96374; 99291; J2916; P9016; Q9967